=== PATIENT | male | born 1955 | race Caucasian/White ===

== ENCOUNTER 2016-11-12 15:54 | Inpatient (IN) | payer BC, OTHER ==
--- NOTE | 2016-11-12 18:11 | PDOC ---
History of Present Illness - General Chief Complaint: Shortness of Breath Stated Complaint: Shortness of Breath Time Seen by Provider: 11/12/16 18:11 Past History - Past Medical History Allergies/Adverse Reactions: Allergies Allergy/AdvReac Type Severity Reaction Status Date / Time No Known Allergies Allergy Verified 11/12/16 16:12 Home Medications: Ambulatory Orders Metolazone [Zaroxolyn] 2.5 mg PO ASDIR PRN 06/21/15 Metoprolol Succinate [Toprol XL -] 50 mg PO BID 06/21/15 Simvastatin [Zocor -] 20 mg PO HS 06/21/15 Warfarin Sodium [Coumadin] 5 mg PO HS 06/21/15 Amiodarone HCl [Cordarone -] 200 mg PO DAILY 10/29/15 Furosemide [Lasix -] 80 mg PO BID 11/28/15 Potassium Chloride [K-Dur -] 20 meq PO DAILY 11/28/15 Potassium Chloride [K-Dur -] 40 meq PO ONCE #2 tablet.er 11/28/15 Spironolactone 50 mg PO DAILY #30 tablet 11/28/15 Zolpidem Tartrate [Ambien] 10 mg PO HS 11/28/15 Cardiac Disorders: Yes (ENDOCARDITIS;A FIB, A FLUTTER) CHF: Yes HTN: Yes Hypercholesterolemia: Yes - Surgical History Cardiac Surgery: Yes (VALVE REPLACEMENT, ABLATIONS) - Psycho/Social/Smoking Cessation Hx Anxiety: No Suicidal Ideation: No Smoking History: Former smoker Have you smoked in the past 12 months: No If you are a former smoker, when did you quit?: 5 YRS Information on smoking cessation initiated: No Hx Alcohol Use: No Drug/Substance Use Hx: No Substance Use Type: None *Physical Exam - Vital Signs Last Vital Signs Temp Pulse Resp BP Pulse Ox 97.7 F 76 17 91/51 95 11/12/16 16:12 11/12/16 16:12 11/12/16 16:12 11/12/16 16:12 11/12/16 16:12
--- NOTE | 2016-11-12 19:26 | PDOC ---
History of Present Illness <Sary Phelps - Last Filed: 11/12/16 22:13> <Jenny Cat - Last Filed: 11/12/16 22:22> - History of Present Illness Initial Comments: 11/12/16 20:06 Patient is a 61-year-old male with past medical history of A. fib status post 2 ablations on amiodarone, mechanical valve replacement (aortic, mitral) endocarditis, CHF, COPD, who presents to emergency department today complaining of shortness of breath for one week. Patient states that he was recently bit by a tick and was started on doxycycline this week. He feels like he is more short of breath than usual on exertion. He can usually walk up 2 flights of steps without getting short of breath. He can currently only walk up one flight of stairs and needs to stop to catch his breath. Denies orthopnea, chest pain, chest tightness, palpitations, cough, edema, fevers, chills, nausea, vomiting and diarrhea. <Estefany Clark - Last Filed: 11/13/16 05:32> - General Chief Complaint: Shortness of Breath Stated Complaint: Shortness of Breath Time Seen by Provider: 11/12/16 18:11 Past History <Sary Phelps - Last Filed: 11/12/16 22:13> <Jenny Cat - Last Filed: 11/12/16 22:22> - Past Medical History Cardiac Disorders: Yes (ENDOCARDITIS;A FIB, A FLUTTER) CHF: Yes HTN: Yes Hypercholesterolemia: Yes - Surgical History Cardiac Surgery: Yes (VALVE REPLACEMENT, ABLATIONS) - Psycho/Social/Smoking Cessation Hx Anxiety: No Suicidal Ideation: No Smoking History: Former smoker Have you smoked in the past 12 months: No If you are a former smoker, when did you quit?: 5 YRS Information on smoking cessation initiated: No Hx Alcohol Use: No Drug/Substance Use Hx: No Substance Use Type: None <Estefany Clark - Last Filed: 11/13/16 05:32> - Past Medical History Allergies/Adverse Reactions: Allergies Allergy/AdvReac Type Severity Reaction Status Date / Time No Known Allergies Allergy Verified 11/12/16 16:12 Home Medications: Ambulatory Orders Metolazone [Zaroxolyn] 2.5 mg PO ASDIR PRN 06/21/15 Metoprolol Succinate [Toprol XL -] 50 mg PO BID 06/21/15 Simvastatin [Zocor -] 20 mg PO HS 06/21/15 Warfarin Sodium [Coumadin] 5 mg PO HS 06/21/15 Amiodarone HCl [Cordarone -] 200 mg PO DAILY 10/29/15 Furosemide [Lasix -] 80 mg PO BID 11/28/15 Potassium Chloride [K-Dur -] 20 meq PO DAILY 11/28/15 Spironolactone 50 mg PO DAILY #30 tablet 11/28/15 Zolpidem Tartrate [Ambien] 10 mg PO HS 11/28/15 Review of Systems - Review of Systems Comments:: 11/12/16 20:12 CONSTITUTIONAL: Absent: fever, chills, diaphoresis, generalized weakness, malaise, loss of appetite HEENT: Absent: rhinorrhea, nasal congestion, throat pain, throat swelling, difficulty swallowing, mouth swelling, ear pain, eye pain, visual Changes CARDIOVASCULAR: Absent: chest pain, loss of consciousness, palpitations, irregular heart rate, peripheral edema RESPIRATORY: Present: SOB, SOB on exertion. Absent: cough, orthopnea, wheezing, stridor, hemoptysis GASTROINTESTINAL: Absent: abdominal pain, abdominal distension, nausea, vomiting, diarrhea, constipation, melena, hematochezia GENITOURINARY: Absent: dysuria, frequency, urgency, hesitancy, hematuria, flank pain, genital pain MUSCULOSKELETAL: Absent: myalgia, arthralgia, joint swelling SKIN: Absent: rash, itching, pallor HEMATOLOGIC/IMMUNOLOGIC: Absent: easy bleeding, easy bruising, lymphadenopathy, frequent infections ENDOCRINE: Absent: unexplained weight gain, unexplained weight loss, heat intolerance, cold intolerance NEUROLOGIC: Absent: headache, focal weakness or paresthesias, dizziness, unsteady gait, seizure, mental status changes, bladder or bowel incontinence PSYCHIATRIC: Absent: anxiety, depression, suicidal or homicidal ideation, hallucinations. <Estefany Clark - Last Filed: 11/13/16 05:32> *Physical Exam - Vital Signs Last Vital Signs Temp Pulse Resp BP Pulse Ox 97.7 F 70 23 96/62 96 11/12/16 16:12 11/12/16 19:50 11/12/16 19:50 11/12/16 19:50 11/12/16 19:58 <Sary Phelps - Last Filed: 11/12/16 22:13> - Vital Signs Last Vital Signs Temp Pulse Resp BP Pulse Ox 97.7 F 70 23 96/62 96 11/12/16 16:12 11/12/16 19:50 11/12/16 19:50 11/12/16 19:50 11/12/16 19:58 <Jenny Cat - Last Filed: 11/12/16 22:22> - Vital Signs Last Vital Signs Temp Pulse Resp BP Pulse Ox 97.7 F 70 16 94/63 98 11/12/16 16:12 11/12/16 19:00 11/12/16 19:00 11/12/16 19:00 11/12/16 19:00 - Physical Exam Comments: 11/12/16 20:07 GENERAL: Well developed, well nourished. AAO 3. NAD. Sitting in wheelchair breathing easily. Not on oxygen. HEENT: Normocephalic, atraumatic. PERRLA, EOMI. No conjunctival pallor. Sclera are non- icteric. Moist mucous membranes. Oropharynx is clear. NECK: Supple. Full ROM. No JVD. Carotid pulses 2+ and symmetric, without bruits. No thyromegaly. No lymphadenopathy. CARDIOVASCULAR: Regular rate and rhythm. No murmurs, rubs, or gallops. Distal pulses are 2+ and symmetric. PULMONARY: No evidence of respiratory distress. Bibasilar crackles. No wheezing or rhonchi. ABDOMINAL: Soft. Non-tender. Non-distended. No rebound or guarding. No organomegaly. Normoactive bowel sounds. MUSCULOSKELETAL Normal range of motion at all joints. No bony deformities or tenderness. No CVA tenderness. EXTREMITIES: No cyanosis. No clubbing. No edema. No calf tenderness. SKIN: Warm and dry. Normal capillary refill. No rashes. No jaundice. NEUROLOGICAL: Alert, awake, appropriate. Cranial nerves 2-12 intact. No deficits to light touch and temperature in face, upper extremities and lower extremities. No motor deficits in the in face, upper extremities and lower extremities. Normoreflexic in the upper and lower extremities. Normal speech. Toes are down- going bilaterally. Gait is normal without ataxia. PSYCHIATRIC: Cooperative. Good eye contact. Appropriate mood and affect. <Sciliano,Estefany - Last Filed: 11/13/16 05:32> ED Treatment Course - LABORATORY CBC & Chemistry Diagram: 11/12/16 19:48 11/12/16 19:48 - ADDITIONAL ORDERS Additional order review: Laboratory Results 11/12/16 11/12/16 11/12/16 20:29 19:48 19:48 INR 7.08 H* D Sodium 133 L Potassium 3.7 D Chloride 96 L Carbon Dioxide 26 D Anion Gap 11 BUN 60 H D Creatinine 1.9 H D Creat Clearance w eGFR 36.10 Random Glucose 95 D Calcium 9.6 Phosphorus 3.3 D Magnesium 2.1 Total Bilirubin 1.8 H AST 26 D ALT 19 D Alkaline Phosphatase 224 H Creatine Kinase Troponin I Total Protein 7.7 Albumin 3.2 L Urine Color Yellow Urine Appearance Clear Urine pH 5.0 Urine Protein Negative Urine Glucose (UA) Negative Urine Ketones Negative Urine Blood Negative Urine Nitrite Negative Urine Bilirubin Negative Urine Urobilinogen 2.0 Ur Leukocyte Esterase Negative 11/12/16 19:36 INR Sodium Potassium Chloride Carbon Dioxide Anion Gap BUN Creatinine Creat Clearance w eGFR Random Glucose Calcium Phosphorus Magnesium Total Bilirubin AST ALT Alkaline Phosphatase Creatine Kinase 31 L Troponin I < 0.02 D Total Protein Albumin Urine Color Urine Appearance Urine pH Urine Protein Urine Glucose (UA) Urine Ketones Urine Blood Urine Nitrite Urine Bilirubin Urine Urobilinogen Ur Leukocyte Esterase 11/12/16 19:48 RBC 3.52 L MCV 84.4 MCHC 33.1 RDW 17.0 H D MPV 8.9 Neutrophils % 81.1 Lymphocytes % 12.6 D Monocytes % 4.8 Eosinophils % 1.1 Basophils % 0.4 <Sary Phelps - Last Filed: 11/12/16 22:13> - LABORATORY CBC & Chemistry Diagram: 11/12/16 19:48 11/12/16 19:48 - ADDITIONAL ORDERS Additional order review: Laboratory Results 11/12/16 11/12/16 11/12/16 20:29 19:48 19:48 INR 7.08 H* D Sodium 133 L Potassium 3.7 D Chloride 96 L Carbon Dioxide 26 D Anion Gap 11 BUN 60 H D Creatinine 1.9 H D Creat Clearance w eGFR 36.10 Random Glucose 95 D Calcium 9.6 Phosphorus 3.3 D Magnesium 2.1 Total Bilirubin 1.8 H AST 26 D ALT 19 D Alkaline Phosphatase 224 H Creatine Kinase Troponin I Total Protein 7.7 Albumin 3.2 L Urine Color Yellow Urine Appearance Clear Urine pH 5.0 Urine Protein Negative Urine Glucose (UA) Negative Urine Ketones Negative Urine Blood Negative Urine Nitrite Negative Urine Bilirubin Negative Urine Urobilinogen 2.0 Ur Leukocyte Esterase Negative 11/12/16 19:36 INR Sodium Potassium Chloride Carbon Dioxide Anion Gap BUN Creatinine Creat Clearance w eGFR Random Glucose Calcium Phosphorus Magnesium Total Bilirubin AST ALT Alkaline Phosphatase Creatine Kinase 31 L Troponin I < 0.02 D Total Protein Albumin Urine Color Urine Appearance Urine pH Urine Protein Urine Glucose (UA) Urine Ketones Urine Blood Urine Nitrite Urine Bilirubin Urine Urobilinogen Ur Leukocyte Esterase 11/12/16 19:48 RBC 3.52 L MCV 84.4 MCHC 33.1 RDW 17.0 H D MPV 8.9 Neutrophils % 81.1 Lymphocytes % 12.6 D Monocytes % 4.8 Eosinophils % 1.1 Basophils % 0.4 <Jenny aCt - Last Filed: 11/12/16 22:22> - LABORATORY CBC & Chemistry Diagram: 11/12/16 19:48 11/12/16 19:48 <Estefany Clark - Last Filed: 11/13/16 05:32> Medical Decision Making - Medical Decision Making 11/12/16 22:22 Dr. Duarte was paged and notified via phone service. <Jenny Cat - Last Filed: 11/12/16 22:22> - Medical Decision Making 11/12/16 20:36 Patient is a 61-year-old male with past medical history of A. fib status post 2 ablations on amiodarone, mechanical valve replacement (aortic, mitral) endocarditis, CHF, COPD, who presents to emergency department today complaining of shortness of breath for one week. Given patient's complicated past medical history we'll order for a of lab workup EKG chest x-ray. Possibilities of diagnosis include but are not limited to CHF exacerbation, pneumonia, Lyme disease, COPD exacerbation. 1. CBC, CMP, Cardiac Profile, PT/INR 2. Chest X-ray, EKG 3. Re-evaluate 11/12/16 21:22 EKG: Sinus rhythm 1st degree block. Rate of [address]-T wave changes. EKG is unchanged from old 09/29/15. CXR: Mild pulmonary vascular congestion, but improved since x-ray on 09/29/15. No acute cardiopulmonary disease. Lab work is notable for an INR of 7, WBC of 12 and STEVE, BUN/CR, 66/1.9. This is most probably d/t his lasix usage compounded by the interaction of doxycycline and Warfarin. Will admit at this time for supratheraputic INR and renal insufficiency. 1st call to Dr. Duarte 11/12/16 21:[address] Duarte and he accepts the pt. Pt to be admitted to telemetry. <Estefany Clark - Last Filed: 11/13/16 05:32> *DC/Admit/Observation/Transfer <Sary Phelps - Last Filed: 11/12/16 22:13> <Jenny Cat - Last Filed: 11/12/16 22:22> - Discharge Dispostion Admit: Yes <Estefany Clark - Last Filed: 11/13/16 05:32> Diagnosis at time of Disposition: Supratherapeutic INR, Renal insufficiency Anemia Qualifiers: Anemia type: unspecified type Qualified Code(s): D64.9 - Anemia, unspecified - Discharge Dispostion Condition at time of disposition: Guarded - Referrals
[2016-11-12 20:05] LABS: BASOPHIL 0.4 % (0-2.0); EOSINOPHIL 1.1 % (0-4.5); MCHC 33.1 g/dl (32.0-35.9); MEAN CELL VOLUME 84.4 fl (80-96); MEAN PLT VOLUME 8.9 fl (7.5-11.1); NEUTROPHILS 81.1 % (42.8-82.8); PLATELET COUNT 123 K/MM3 (134-434); WHITE BLOOD COUNT 12.7 K/mm3 (4.0-10.0)
[2016-11-12 20:25] LABS: INR 7.08 (0.82-1.09)
[2016-11-12 20:38] LABS: URINE APPEARANCE CLEAR; URINE BILIRUBIN NEGATIVE (NEGATIVE); URINE BLOOD NEGATIVE (NEGATIVE); URINE COLOR YELLOW; URINE GLUCOSE (UA) NEGATIVE (NEGATIVE); URINE KETONE NEGATIVE (NEGATIVE); URINE LEUK ESTERASE NEGATIVE (NEGATIVE); URINE NITRITE NEGATIVE (NEGATIVE); URINE PROTEIN NEGATIVE (NEGATIVE)
[2016-11-12 20:55] LABS: ALBUMIN 3.2 g/dl (3.4-5.0); ALK PHOS 224 U/L (45-117); ANION GAP 11 (8-16); BILIRUBIN,TOTAL 1.8 mg/dL (0.2-1.0); CALCIUM 9.6 mg/dL (8.5-10.1); CO2 26 mmol/L (21-32); CREATININE 1.9 mg/dL (0.7-1.3); GLUCOSE,RANDOM 95 mg/dL (74-106); MAGNESIUM 2.1 mg/dL (1.8-2.4); PHOSPHOROUS 3.3 mg/dL (2.5-4.9); SGOT/AST 26 U/L (15-37); SGPT/ALT 19 U/L (12-78); TOT PROT 7.7 g/dl (6.4-8.2)
[2016-11-12 20:56] LABS: TROPONIN I < 0.02 ng/ml (0.00-0.05)
[2016-11-12] MEDS ORDERED: SODIUM CHLORIDE 500 ML IV STA (21:11)
[2016-11-13 03:11] VITALS: BMI 25.1
[2016-11-13 08:28] LABS: BASOPHIL 0.4 % (0-2.0); EOSINOPHIL 1.1 % (0-4.5); MCH 28.6 pg (25.7-33.7); MCHC 33.9 g/dl (32.0-35.9); MEAN CELL VOLUME 84.1 fl (80-96); MEAN PLT VOLUME 7.5 fl (7.5-11.1); NEUTROPHILS 82.8 % (42.8-82.8); PLATELET COUNT 188 K/MM3 (134-434); RDW 16.5 % (11.9-15.9); WHITE BLOOD COUNT 12.8 K/mm3 (4.0-10.0)
[2016-11-13 08:49] LABS: PROTHROMBIN TIME (PATIENT) 87.7 SEC (9.98-11.88)
[2016-11-13 08:55] LABS: ANION GAP 11 (8-16); CALCIUM 9.5 mg/dL (8.5-10.1); CHOLESTEROL 164 mg/dL (50-200); CO2 26 mmol/L (21-32); CREATININE 1.8 mg/dL (0.7-1.3); GLUCOSE,RANDOM 100 mg/dL (74-106); LDL CHOLESTEROL (ONLY SJRH) 112 mg/dL (5-100); MAGNESIUM 2.1 mg/dL (1.8-2.4)
[2016-11-13] MEDS ORDERED: PHYTONADIONE 10 MG/1 ML AMP IVPB ONE (09:14)
[2016-11-13 09:15] LABS: INR 7.65 (0.82-1.09)
--- NOTE | 2016-11-13 09:16 | HP ---
Admitting History and Physical - Admission History of Present Illness: 61-year-old male with past medical history of A. fib status post 2 ablations on amiodarone, mechanical valve replacement (aortic, mitral) endocarditis, CHF, COPD, who presents to emergency department today complaining of shortness of breath for one week. Patient states that he was recently bit by a tick and was started on doxycycline this week. He feels like he is more short of breath than usual on exertion. He can usually walk up 2 flights of steps without getting short of breath. He can currently only walk up one flight of stairs and needs to stop to catch his breath. Denies orthopnea, chest pain, chest tightness, palpitations, cough, edema, fevers, chills, nausea, vomiting and diarrhea. - Past Medical History Cardiovascular: Yes: AFIB, CHF, HTN, Hyperlipdemia, Other (AVR/MVR) Pulmonary: Yes: COPD Renal/: Yes: Renal Inusuff Heme/Onc: Yes: Anemia Infectious Disease: Yes: Other (H/O ENDOCARDITIS) - Past Surgical History Past Surgical History: Yes: Valve Replacement - Smoking History Smoking history: Former smoker Have you smoked in the past 12 months: No If you are a former smoker, when did you quit?: 5 YRS - Alcohol/Substance Use Hx Alcohol Use: No Home Medications - Allergies Allergies/Adverse Reactions: Allergies Allergy/AdvReac Type Severity Reaction Status Date / Time No Known Allergies Allergy Verified 11/12/16 16:12 - Home Medications Home Medications: Ambulatory Orders Metolazone [Zaroxolyn] 2.5 mg PO ASDIR PRN 06/21/15 Metoprolol Succinate [Toprol XL -] 50 mg PO BID 06/21/15 Simvastatin [Zocor -] 20 mg PO HS 06/21/15 Warfarin Sodium [Coumadin] 5 mg PO HS 06/21/15 Amiodarone HCl [Cordarone -] 200 mg PO DAILY 10/29/15 Furosemide [Lasix -] 80 mg PO BID 11/28/15 Potassium Chloride [K-Dur -] 20 meq PO DAILY 11/28/15 Spironolactone 50 mg PO DAILY #30 tablet 11/28/15 Zolpidem Tartrate [Ambien] 10 mg PO HS 11/28/15 Family Disease History - Family Disease History Family Disease History: Diabetes: Father (Throat cancer), Other: Father, Mother (Breast and lung cancer) Review of Systems - Review of Systems Cardiovascular: denies: Chest Pain Respiratory: reports: Orthopnea, SOB, SOB on Exertion Gastrointestinal: denies: Abdominal Pain Genitourinary: reports: No Symptoms Integumentary: reports: Erythema (RT LEG) Neurological: reports: No Symptoms Physical Examination Vital Signs: Vital Signs Temperature 97 F L 11/13/16 03:00 Pulse Rate 75 11/13/16 05:57 Respiratory Rate 20 11/13/16 05:57 Blood Pressure 97/65 11/13/16 05:57 O2 Sat by Pulse Oximetry (%) 97 11/13/16 03:00 Cardiovascular: Yes: S1, S2 Respiratory: Yes: Diminished, On Nasal O2, Rhonchi Gastrointestinal: Yes: Normal Bowel Sounds, Soft. No: Tenderness Extremities: Yes: Erythema (RT LEG) Labs: CBC, BMP 11/13/16 08:05 Imaging - Results X-ray: Report Reviewed Problem List - Problems (1) CHF (congestive heart failure) Assessment/Plan: IV LASIX MONITOR LYTES CT OF CHEST ECHO ON ALDACTONE Code(s): I50.9 - HEART FAILURE, UNSPECIFIED Qualifiers: Congestive heart failure type: unspecified congestive heart failure type Congestive heart failure chronicity: unspecified congestive heart failure chronicity Qualified Code(s): I50.9 - Heart failure, unspecified (2) Supratherapeutic INR Assessment/Plan: HOLD COUMADIN MONITOR INR NO S/S OF ACTIVE BLEEDING--HOLD OFF ON VIT K DUE TO VALVE CARDIO Code(s): R79.1 - ABNORMAL COAGULATION PROFILE (3) Atrial fibrillation Assessment/Plan: ON COUMADIN--INR HIGH TELE Code(s): I48.91 - UNSPECIFIED ATRIAL FIBRILLATION Qualifiers: Atrial fibrillation type: persistent Qualified Code(s): I48.1 - Persistent atrial fibrillation (4) Anemia Assessment/Plan: W/U ORDERED--FE/TIBC/FERRITIN/B12/OCCULT BLOOD Code(s): D64.9 - ANEMIA, UNSPECIFIED Qualifiers: Anemia type: unspecified type Qualified Code(s): D64.9 - Anemia, unspecified (5) Renal insufficiency Assessment/Plan: MONITOR ON DIURETICS Code(s): N28.9 - DISORDER OF KIDNEY AND URETER, UNSPECIFIED (6) Hypokalemia Assessment/Plan: REPLACE AND MONITOR Code(s): E87.6 - HYPOKALEMIA (7) Heart valve replaced Assessment/Plan: ECHO Code(s): Z95.2 - PRESENCE OF PROSTHETIC HEART VALVE (8) Cellulitis Assessment/Plan: IV ABX CULTURES ID CONSULT Code(s): L03.90 - CELLULITIS, UNSPECIFIED
[2016-11-13] MEDS ORDERED: CEFTRIAXONE 50 ML IVPB SCH (10:00)
[2016-11-13] MEDS ORDERED: POTASSIUM CHLORIDE TABS 20 MEQ TABLET.ER (FP) PO SCH (10:00)
--- NOTE | 2016-11-13 10:25 | CONSULT ---
Consult Consult Specialty:: Cardiology Referred by:: Medicine Reason for Consultation:: CHF - History of Present Illness Chief Complaint: Dyspnea History of Present Illness: 61 yo male Known to Dr. Meza (last seen in [facility] "months ago") Prior AFib s/p 2 RFA in 2010 and 2013 at [facility] Prior Mechanical AVR and MVR 2/2 endocarditits COPD Now admitted with 1 week of worsening exertional dyspnea unable to ambulate 1 block after starting doxycycline for tick bite. No chest pain or palpitations (+) right LE erythema States medication compliance at home with lasix 80mg daily Last echo was normal LVEF - History Source History Provided By: Patient, Medical Record Limitations to Obtaining History: No Limitations - Past Medical History Cardio/Vascular: Yes: AFIB, CHF, HTN, Hyperlipdemia, Other (AVR/MVR) Pulmonary: Yes: COPD Renal/: Yes: Renal Inusuff Infectious Disease: Yes: Other (H/O ENDOCARDITIS) - Past Surgical History Past Surgical History: Yes: Valve Replacement - Alcohol/Substance Use Hx Alcohol Use: No - Smoking History Smoking history: Former smoker Have you smoked in the past 12 months: No If you are a former smoker, when did you quit?: 5 YRS Home Medications - Allergies Allergies/Adverse Reactions: Allergies Allergy/AdvReac Type Severity Reaction Status Date / Time No Known Allergies Allergy Verified 11/12/16 16:12 - Home Medications Home Medications: Ambulatory Orders Metolazone [Zaroxolyn] 2.5 mg PO ASDIR PRN 06/21/15 Metoprolol Succinate [Toprol XL -] 50 mg PO BID 06/21/15 Simvastatin [Zocor -] 20 mg PO HS 06/21/15 Warfarin Sodium [Coumadin] 5 mg PO HS 06/21/15 Amiodarone HCl [Cordarone -] 200 mg PO DAILY 10/29/15 Furosemide [Lasix -] 80 mg PO BID 11/28/15 Potassium Chloride [K-Dur -] 20 meq PO DAILY 11/28/15 Spironolactone 50 mg PO DAILY #30 tablet 11/28/15 Zolpidem Tartrate [Ambien] 10 mg PO HS 11/28/15 Family Disease History - Family Disease History Family Disease History: Diabetes: Father (Throat cancer), Other: Father, Mother (Breast and lung cancer) Review of Systems - Review of Systems Cardiovascular: reports: Shortness of Breath Respiratory: reports: SOB on Exertion Integumentary: reports: Erythema (right LE rash Recent tick bite), Other Physical Exam Vital Signs: Vital Signs Temperature 97 F L 11/13/16 03:00 Pulse Rate 75 11/13/16 05:57 Respiratory Rate 20 11/13/16 05:57 Blood Pressure 97/65 11/13/16 05:57 O2 Sat by Pulse Oximetry (%) 97 11/13/16 03:00 Constitutional: Yes: Well Nourished, No Distress, Calm Eyes: Yes: Conjunctiva Clear, EOM Intact HENT: Yes: Atraumatic, Normocephalic Neck: Yes: WNL, Supple, Trachea Midline Cardiovascular: Yes: Regular Rate and Rhythm (Mechanical S1 and S2) Respiratory: Yes: Regular, CTA Bilaterally Gastrointestinal: Yes: Normal Bowel Sounds ...Rectal Exam: Yes: Deferred Extremities: Yes: Erythema Edema: Yes Edema: LLE: 1+, RLE: 2+ Integumentary: Yes: Rash (Right LE erythema/cellulits) Neurological: Yes: WNL, Alert, Oriented Psychiatric: Yes: WNL, Alert, Oriented Labs: CBC, BMP 11/13/16 08:05 11/13/16 08:05 Imaging - Results EKG: Image Reviewed (ECG on 11/12/2016 at 19:28 NSR at 70/min with 1st degree avb (264msec) and LBBB.) Assessment/Plan 1) CHF -Elevated BNP 2378 -Agree with lasix 80mg IV BID -Repelate K and monitor BUN/Cr (Baseline Cr around 1.5 on last admission) 2) Afib -Currently in NSR -Monitor 3) Prior AVR/MVR -On AC but supratherapeutic INR (7) likely secondary to Abx -No evidence of bleeding -Hold coumadin and allow INR to drift down, follow INR
[2016-11-13] MEDS: POTASSIUM CHLORIDE TABS 20 MEQ TABLET.ER (FP) PO SCH (10:53)
[2016-11-13] MEDS: AMIODARONE HCL 200 MG TABLET (FP) PO SCH (10:53)
[2016-11-13] MEDS: SPIRONOLACTONE 25 MG TABLET (FP) PO SCH (10:53)
[2016-11-13] MEDS: KCL 10 MEQ IVPB 100 ML IVPB SCH ×2 (11:12→13:16)
--- NOTE | 2016-11-13 12:54 | PN ---
Progress Note (short form) - Note Progress Note: ID Consult dictated Cellulitis R LE S/P MVR/AVR S/P tick exposure Await BC, tick serologies Empric vancomycin/ doxycycline
[2016-11-13] MEDS ORDERED: VANCOMYCIN 1,000 MG in VANCOMYCIN 1 GRAM (PRE-DOCKED) 250 ML IVPB SCH (13:00)
[2016-11-13] MEDS: ACETAMINOPHEN 325 MG TABLET (FP) PO PRN (13:16)
[2016-11-13] MEDS: FUROSEMIDE 40 MG/4 ML INJECTABLE VIAL IVPUSH SCH (15:54)
[2016-11-13] MEDS: VANCOMYCIN 1 GRAM (PRE-DOCKED) 250 ML IVPB SCH (15:55)
[2016-11-13] MEDS: DOXYCYCLINE HYCLATE 100 MG CAPSULE PO SCH (18:27)
[2016-11-14] MEDS: POTASSIUM CHLORIDE TABS 20 MEQ TABLET.ER (FP) PO SCH ×3 (00:07→22:49)
[2016-11-14] MEDS: ZOLPIDEM TARTRATE 5 MG TABLET PO PRN (00:07)
[2016-11-14] MEDS: VANCOMYCIN 1 GRAM (PRE-DOCKED) 250 ML IVPB SCH ×2 (00:14→13:55)
[2016-11-14] MEDS: FUROSEMIDE 40 MG/4 ML INJECTABLE VIAL IVPUSH SCH ×2 (05:45→15:43)
[2016-11-14 07:12] LABS: SERUM IRON 63 ug/dL (38-169); TOTAL IRON BINDING CAPACITY 264 ug/dL (250-450); UIBC 201 ug/dL (111-343)
[2016-11-14 09:37] LABS: BASOPHIL 0.3 % (0-2.0); EOSINOPHIL 1.3 % (0-4.5); MCH 28.4 pg (25.7-33.7); MCHC 33.3 g/dl (32.0-35.9); MEAN CELL VOLUME 85.4 fl (80-96); MEAN PLT VOLUME 8.1 fl (7.5-11.1); NEUTROPHILS 82.2 % (42.8-82.8); PLATELET COUNT 165 K/MM3 (134-434); RDW 16.7 % (11.9-15.9); WHITE BLOOD COUNT 12.4 K/mm3 (4.0-10.0)
[2016-11-14] MEDS: DOXYCYCLINE HYCLATE 100 MG CAPSULE PO SCH ×2 (09:42→17:28)
[2016-11-14] MEDS: AMIODARONE HCL 200 MG TABLET (FP) PO SCH (09:42)
[2016-11-14] MEDS: SPIRONOLACTONE 25 MG TABLET (FP) PO SCH (09:42)
[2016-11-14 09:50] LABS: ALBUMIN 3.4 g/dl (3.4-5.0); ANION GAP 11 (8-16); BILIRUBIN,TOTAL 2.3 mg/dL (0.2-1.0); CALCIUM 10.2 mg/dL (8.5-10.1); CO2 27 mmol/L (21-32); CREATININE 1.7 mg/dL (0.7-1.3); GLUCOSE,RANDOM 115 mg/dL (74-106); SGOT/AST 24 U/L (15-37); SGPT/ALT 16 U/L (12-78); TOT PROT 7.9 g/dl (6.4-8.2)
[2016-11-14 09:51] LABS: ALK PHOS 231 U/L (45-117)
[2016-11-14 09:54] LABS: INR 1.36 (0.82-1.09); PROTHROMBIN TIME (PATIENT) 15.1 SEC (9.98-11.88)
--- NOTE | 2016-11-14 09:55 | PN ---
Progress Note, Physician History of Present Illness: no cp or sob feels better slept flat - Current Medication List Current Medications: Active Medications Acetaminophen (Tylenol -) 650 mg PO Q4H PRN PRN Reason: FEVER OR PAIN Last Admin: 11/13/16 13:16 Dose: 650 mg Amiodarone HCl (Cordarone -) 200 mg PO DAILY [facility] Last Admin: 11/14/16 09:42 Dose: 200 mg Doxycycline Hyclate (Vibramycin -) 100 mg PO BID@1000,1800 [facility] Last Admin: 11/14/16 09:42 Dose: 100 mg Furosemide (Lasix Injection -) 40 mg IVPUSH BID@0600,1400 [facility] Last Admin: 11/14/16 05:45 Dose: 40 mg Vancomycin HCl (Vancomycin (Pre-Docked)) 250 mls @ 200 mls/hr IVPB BID@0100, 1300 [facility] Last Admin: 11/14/16 00:14 Dose: 200 mls/hr Potassium Chloride (K-Dur -) 20 meq PO BID [facility] Last Admin: 11/14/16 09:43 Dose: 20 meq Spironolactone (Aldactone -) 50 mg PO DAILY [facility] Last Admin: 11/14/16 09:42 Dose: 50 mg Zolpidem Tartrate (Ambien -) 10 mg PO HS PRN Last Admin: 11/14/16 00:07 Dose: 10 mg - Objective Vital Signs: Vital Signs Temperature 97.4 F L 11/14/16 07:45 Pulse Rate 81 11/14/16 07:45 Respiratory Rate 18 11/14/16 07:45 Blood Pressure 100/64 11/14/16 07:45 O2 Sat by Pulse Oximetry (%) 97 11/13/16 21:00 Neck: Yes: Supple Cardiovascular: Yes: S1, S2 Respiratory: Yes: Rales (at the bases), Rhonchi Gastrointestinal: Yes: Normal Bowel Sounds, Soft. No: Tenderness Edema: No Integumentary: Yes: Erythema Labs: CBC, BMP 11/14/16 07:00 11/14/16 07:00 INR, PTT INR 7.65 (0.82-1.09) H* 11/13/16 08:05 Problem List - Problems (1) CHF (congestive heart failure) Assessment/Plan: IV LASIX MONITOR LYTES CT OF CHEST ECHO ON ALDACTONE Code(s): I50.9 - HEART FAILURE, UNSPECIFIED Qualifiers: Congestive heart failure type: unspecified congestive heart failure type Congestive heart failure chronicity: unspecified congestive heart failure chronicity Qualified Code(s): I50.9 - Heart failure, unspecified (2) Supratherapeutic INR Assessment/Plan: HOLD COUMADIN MONITOR INR NO S/S OF ACTIVE BLEEDING--HOLD OFF ON VIT K DUE TO VALVE CARDIO Code(s): R79.1 - ABNORMAL COAGULATION PROFILE (3) Atrial fibrillation Assessment/Plan: ON COUMADIN--INR HIGH TELE Code(s): I48.91 - UNSPECIFIED ATRIAL FIBRILLATION Qualifiers: Atrial fibrillation type: persistent Qualified Code(s): I48.1 - Persistent atrial fibrillation (4) Anemia Assessment/Plan: W/U ORDERED--FE/TIBC/FERRITIN/B12/OCCULT BLOOD Code(s): D64.9 - ANEMIA, UNSPECIFIED Qualifiers: Anemia type: unspecified type Qualified Code(s): D64.9 - Anemia, unspecified (5) Renal insufficiency Assessment/Plan: MONITOR ON DIURETICS Code(s): N28.9 - DISORDER OF KIDNEY AND URETER, UNSPECIFIED (6) Hypokalemia Assessment/Plan: REPLACE AND MONITOR Laboratory Tests 11/13/16 11/14/16 08:05 07:00 Potassium 3.2 L 4.0 D Code(s): E87.6 - HYPOKALEMIA (7) Heart valve replaced Assessment/Plan: ECHO Code(s): Z95.2 - PRESENCE OF PROSTHETIC HEART VALVE (8) Cellulitis Assessment/Plan: IV ABX CULTURES ID CONSULT Code(s): L03.90 - CELLULITIS, UNSPECIFIED (9) Pneumonia Assessment/Plan: CT SCAN NOTED--GROUND GLASS APPEARANCE IV BX ID AND PULM CONSULT Code(s): J18.9 - PNEUMONIA, UNSPECIFIED ORGANISM (10) Bacteremia Assessment/Plan: R/O VALVE INVOLVEMENT---ECHO CARDIO IV ABX PER ID Code(s): R78.81 - BACTEREMIA
--- NOTE | 2016-11-14 10:59 | PN ---
Progress Note, Physician History of Present Illness: Awake, alert No fever/ chills No focal complaint Denies R leg pain No c/o chest pain/ dyspnea/ cough Lab reports 2 of 4 bottles + GPCC - Current Medication List Current Medications: Active Medications Acetaminophen (Tylenol -) 650 mg PO Q4H PRN PRN Reason: FEVER OR PAIN Last Admin: 11/13/16 13:16 Dose: 650 mg Amiodarone HCl (Cordarone -) 200 mg PO DAILY [facility] Last Admin: 11/14/16 09:42 Dose: 200 mg Doxycycline Hyclate (Vibramycin -) 100 mg PO BID@1000,1800 [facility] Last Admin: 11/14/16 09:42 Dose: 100 mg Furosemide (Lasix Injection -) 40 mg IVPUSH BID@0600,1400 [facility] Last Admin: 11/14/16 05:45 Dose: 40 mg Vancomycin HCl (Vancomycin (Pre-Docked)) 250 mls @ 200 mls/hr IVPB BID@0100, 1300 [facility] Last Admin: 11/14/16 00:14 Dose: 200 mls/hr Potassium Chloride (K-Dur -) 20 meq PO BID [facility] Last Admin: 11/14/16 09:43 Dose: 20 meq Spironolactone (Aldactone -) 50 mg PO DAILY [facility] Last Admin: 11/14/16 09:42 Dose: 50 mg Zolpidem Tartrate (Ambien -) 10 mg PO HS PRN Last Admin: 11/14/16 00:07 Dose: 10 mg - Objective Vital Signs: Vital Signs Temperature 97.4 F L 11/14/16 07:45 Pulse Rate 81 11/14/16 07:45 Respiratory Rate 18 11/14/16 07:45 Blood Pressure 100/64 11/14/16 07:45 O2 Sat by Pulse Oximetry (%) 100 11/14/16 09:00 Constitutional: Yes: No Distress Eyes: Yes: Conjunctiva Clear Cardiovascular: Yes: Regular Rate and Rhythm, Murmur, S1, S2 Respiratory: Yes: Other (few crepitations, bases) Gastrointestinal: Yes: Normal Bowel Sounds, Soft. 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
[2016-11-14 11:39] LABS: INR 1.39 (0.82-1.09); PROTHROMBIN TIME (PATIENT) 15.4 SEC (9.98-11.88)
[2016-11-14] MEDS: CEFTRIAXONE 50 ML IVPB SCH (11:42)
--- NOTE | 2016-11-14 11:50 | PN ---
Progress Note, Physician History of Present Illness: Urinating Feeling improved from respiratory perspective No bleeding - Current Medication List Current Medications: Active Medications Acetaminophen (Tylenol -) 650 mg PO Q4H PRN PRN Reason: FEVER OR PAIN Last Admin: 11/13/16 13:16 Dose: 650 mg Amiodarone HCl (Cordarone -) 200 mg PO DAILY [facility] Last Admin: 11/14/16 09:42 Dose: 200 mg Doxycycline Hyclate (Vibramycin -) 100 mg PO BID@1000,1800 [facility] Last Admin: 11/14/16 09:42 Dose: 100 mg Furosemide (Lasix Injection -) 40 mg IVPUSH BID@0600,1400 [facility] Last Admin: 11/14/16 05:45 Dose: 40 mg Vancomycin HCl (Vancomycin (Pre-Docked)) 250 mls @ 200 mls/hr IVPB BID@0100, 1300 [facility] Last Admin: 11/14/16 00:14 Dose: 200 mls/hr Ceftriaxone Sodium (Rocephin 1gm Ivpb (Pre-Docked)) 50 mls @ 100 mls/hr IVPB DAILY [facility] Last Admin: 11/14/16 11:42 Dose: 100 mls/hr Gentamicin Sulfate 60 mg/ (Sodium Chloride) 101.5 mls @ 101.5 mls/hr IVPB Q12H [facility] Potassium Chloride (K-Dur -) 20 meq PO BID [facility] Last Admin: 11/14/16 09:43 Dose: 20 meq Spironolactone (Aldactone -) 50 mg PO DAILY [facility] Last Admin: 11/14/16 09:42 Dose: 50 mg Zolpidem Tartrate (Ambien -) 10 mg PO HS PRN Last Admin: 11/14/16 00:07 Dose: 10 mg - Objective Vital Signs: Vital Signs Temperature 97.4 F L 11/14/16 07:45 Pulse Rate 81 11/14/16 07:45 Respiratory Rate 18 11/14/16 07:45 Blood Pressure 100/64 11/14/16 07:45 O2 Sat by Pulse Oximetry (%) 100 11/14/16 09:00 Constitutional: Yes: Well Nourished, No Distress Eyes: Yes: WNL, Conjunctiva Clear HENT: Yes: Atraumatic, Normocephalic Neck: Yes: WNL, Supple Cardiovascular: Yes: WNL, Other (Mechanical S1.) Respiratory: Yes: Regular, CTA Bilaterally Gastrointestinal: Yes: WNL, Normal Bowel Sounds Musculoskeletal: Yes: WNL Extremities: Yes: Erythema Edema: LLE: 1+, RLE: 1+ Labs: CBC, BMP 11/14/16 07:00 11/14/16 07:00 INR, PTT INR 1.39 (0.82-1.09) H 11/14/16 11:18 Assessment/Plan 1) CHF -Elevated BNP 2378 Last echo was [facility] in 10/2015 showing mechancial MVR and bioprosthetic AVR, mildly reduced LVEF with global hypocontractility. -continue now with lasix 40mg IV BID -Replete K and monitor BUN/Cr (Baseline Cr around 1.5 on last admission) -Continue Aldactone for now but may need to hold with Cr continues to rise. 2) Afib -Currently in NSR on Amiodarone -Monitor 3) Prior bio AVR, mechanical MVR -Now INR 1.39 (?) with no Vit K administered. Odd to have the INR go from 7 to 1.39 without Vit K. ?lab error. Nonetheless, given his mechcnial MVR, needs IV Heparin and re-initiation of warfarin.
[2016-11-14] MEDS ORDERED: HEPARIN NA (PORCINE) 5,000 UNITS/ML 1ML VIAL IVPUSH PRN (11:57)
[2016-11-14] MEDS: GENTAMICIN INJECTION 60 MG in SODIUM CHLORIDE 100 ML IVPB SCH ×2 (12:28→23:23)
--- NOTE | 2016-11-14 12:53 | CON.PULM ---
Consult Consult Specialty:: PULM/CCM Referred by:: JESSICA Reason for Consultation:: SOB - History of Present Illness Chief Complaint: SOB / foot swelling redness History of Present Illness: 61 M, A. fib, S/P ablation x2, mechanical valve replacement (aortic, mitral), (? ) history of endocarditis, CHF, COPD due to smoking. His is at the bedside. Minimal snoring and no significant history consistent with [facility]. Admitted via the ER due to progressive SOB and cough x 1 week. Patient also reports that he was recently bitten by a tick and was started on doxycycline. No travel history or sick contacts. No hemoptysis or night sweats. - History Source History Provided By: Patient Limitations to Obtaining History: No Limitations - Past Medical History Cardio/Vascular: Yes: AFIB, CHF, HTN, Hyperlipdemia, Other (AVR/MVR) Pulmonary: Yes: COPD Renal/: Yes: Renal Inusuff Infectious Disease: Yes: Other (H/O ENDOCARDITIS) - Past Surgical History Past Surgical History: Yes: Valve Replacement - Alcohol/Substance Use Hx Alcohol Use: No - Smoking History Smoking history: Former smoker Have you smoked in the past 12 months: No If you are a former smoker, when did you quit?: 5 YRS Home Medications - Allergies Allergies/Adverse Reactions: Allergies Allergy/AdvReac Type Severity Reaction Status Date / Time No Known Allergies Allergy Verified 11/12/16 16:12 - Home Medications Home Medications: Ambulatory Orders Metolazone [Zaroxolyn] 2.5 mg PO ASDIR PRN 06/21/15 Metoprolol Succinate [Toprol XL -] 50 mg PO BID 06/21/15 Simvastatin [Zocor -] 20 mg PO HS 06/21/15 Warfarin Sodium [Coumadin] 5 mg PO HS 06/21/15 Amiodarone HCl [Cordarone -] 200 mg PO DAILY 10/29/15 Furosemide [Lasix -] 80 mg PO BID 11/28/15 Potassium Chloride [K-Dur -] 20 meq PO DAILY 11/28/15 Spironolactone 50 mg PO DAILY #30 tablet 11/28/15 Zolpidem Tartrate [Ambien] 10 mg PO HS 11/28/15 Family Disease History - Family Disease History Family Disease History: Diabetes: Father (Throat cancer), Other: Father, Mother (Breast and lung cancer) Review of Systems - Review of Systems Constitutional: reports: Malaise. denies: Chills, Fever, Loss of Appetite, Night Sweats, Unintentional Wgt. Loss Eyes: reports: No Symptoms HENT: reports: No Symptoms Neck: reports: No Symptoms Cardiovascular: reports: Edema, Shortness of Breath. denies: Chest Pain, Palpitations Respiratory: reports: Cough, SOB, SOB on Exertion. denies: Hemoptysis, Snoring , Wheezing Gastrointestinal: reports: No Symptoms Genitourinary: reports: No Symptoms Breasts: reports: No Symptoms Reported Musculoskeletal: reports: Joint Swelling Integumentary: reports: Blister, Change in Color, Pruritis, Rash Neurological: reports: No Symptoms Endocrine: reports: No Symptoms Hematology/Lymphatic: reports: No Symptoms Psychiatric: reports: No Symptoms Physical Exam Vital Sings: Vital Signs Temperature 97.4 F L 11/14/16 07:45 Pulse Rate 81 11/14/16 07:45 Respiratory Rate 18 11/14/16 07:45 Blood Pressure 100/64 11/14/16 07:45 O2 Sat by Pulse Oximetry (%) 100 11/14/16 09:00 Constitutional: Yes: No Distress, Calm Eyes: Yes: Conjunctiva Clear, EOM Intact HENT: Yes: Atraumatic, Normocephalic Neck: Yes: Supple, Trachea Midline Cardiovascular: Yes: Pulse Irregular Respiratory: Yes: Cough, Diminished, On Nasal O2, Rhonchi. No: Accessory Muscle Use, Rales, Stridor, Tachypnea, Wheezes ...Inspection: Yes: WNL ...Clubbing: No Gastrointestinal: Yes: Normal Bowel Sounds, Soft Renal/: Yes: WNL Musculoskeletal: Yes: WNL Extremities: Yes: Other (rash / redness ) Edema: Yes Peripheral Pulses WNL: No Integumentary: Yes: Erythema, Rash Neurological: Yes: WNL, Alert, Oriented ...Motor Strength: WNL Psychiatric: Yes: WNL, Alert, Oriented Labs: CBC, BMP 11/14/16 07:00 11/14/16 07:00 Imaging - Results Chest X-ray: Report Reviewed, Image Reviewed Cat Scan: Report Reviewed, Image Reviewed Problem List - Problems (1) Anemia Code(s): D64.9 - ANEMIA, UNSPECIFIED Qualifiers: Anemia type: unspecified type Qualified Code(s): D64.9 - Anemia, unspecified (2) Cellulitis Code(s): L03.90 - CELLULITIS, UNSPECIFIED (3) Heart valve replaced Code(s): Z95.2 - PRESENCE OF PROSTHETIC HEART VALVE (4) Pneumonia Code(s): J18.9 - PNEUMONIA, UNSPECIFIED ORGANISM (5) Supratherapeutic INR Code(s): R79.1 - ABNORMAL COAGULATION PROFILE (6) Atrial fibrillation Code(s): I48.91 - UNSPECIFIED ATRIAL FIBRILLATION Qualifiers: Atrial fibrillation type: persistent Qualified Code(s): I48.1 - Persistent atrial fibrillation (7) CHF (congestive heart failure) Code(s): I50.9 - HEART FAILURE, UNSPECIFIED Qualifiers: Congestive heart failure type: unspecified congestive heart failure type Congestive heart failure chronicity: unspecified congestive heart failure chronicity Qualified Code(s): I50.9 - Heart failure, unspecified (8) Bacteremia Code(s): R78.81 - BACTEREMIA Assessment/Plan Agree with ABX per ID O2 as needed Sputum be collected BD TX PRN AC for AFib Follow sensitivities No smoking counseled Will follow Thank you. Dr Marquez
[2016-11-14] MEDS: HEPARIN INFUSION - 500 ML IVPB SCH (13:36)
[2016-11-14] MEDS ORDERED: HEPARIN NA (PORCINE) 5,000 UNITS/ML 1ML VIAL IVPUSH ONE (16:30)
[2016-11-14] MEDS ORDERED: PT OWN MED DRAWER 7, Y5N ONE (22:52)
--- NOTE | 2016-11-14 23:42 | CONSULT ---
Consult Consult Specialty:: endocrine Reason for Consultation:: shortness of breath weakness, - History of Present Illness Chief Complaint: weakness,difficulty breathing diffuse lower legg rash History of Present Illness: 61-year-old male with past medical history of A. fib status post 2 ablations on amiodarone, mechanical valve replacement (aortic, mitral) endocarditis, CHF, COPD, who presents to emergency department today complaining of shortness of breath for one week. Patient states that he was recently bit by a tick and was started on doxycycline this week. He feels like he is more short of breath than usual on exertion. he feels cold weakness,and difficulty walking from the diffuse legg reddness and weaknes - Past Medical History Cardio/Vascular: Yes: AFIB, CHF, HTN, Hyperlipdemia, Other (AVR/MVR) Pulmonary: Yes: COPD Renal/: Yes: Renal Inusuff Infectious Disease: Yes: Other (H/O ENDOCARDITIS) - Past Surgical History Past Surgical History: Yes: Valve Replacement - Alcohol/Substance Use Hx Alcohol Use: No - Smoking History Smoking history: Former smoker Have you smoked in the past 12 months: No If you are a former smoker, when did you quit?: 5 YRS Home Medications - Allergies Allergies/Adverse Reactions: Allergies Allergy/AdvReac Type Severity Reaction Status Date / Time No Known Allergies Allergy Verified 11/12/16 16:12 - Home Medications Home Medications: Ambulatory Orders Metolazone [Zaroxolyn] 2.5 mg PO ASDIR PRN 06/21/15 Metoprolol Succinate [Toprol XL -] 50 mg PO BID 06/21/15 Simvastatin [Zocor -] 20 mg PO HS 06/21/15 Warfarin Sodium [Coumadin] 5 mg PO HS 06/21/15 Amiodarone HCl [Cordarone -] 200 mg PO DAILY 10/29/15 Furosemide [Lasix -] 80 mg PO BID 11/28/15 Potassium Chloride [K-Dur -] 20 meq PO DAILY 11/28/15 Spironolactone 50 mg PO DAILY #30 tablet 11/28/15 Zolpidem Tartrate [Ambien] 10 mg PO HS 11/28/15 Family Disease History - Family Disease History Family Disease History: Diabetes: Father (Throat cancer), Other: Father, Mother (Breast and lung cancer) Review of Systems - Review of Systems Constitutional: reports: Lethargy, Loss of Appetite, Weakness Eyes: reports: No Symptoms HENT: reports: No Symptoms Neck: reports: No Symptoms Cardiovascular: reports: Palpitations, Shortness of Breath Respiratory: reports: Exercise Intolerance, SOB on Exertion Gastrointestinal: reports: Bloating, Constipation Genitourinary: reports: No Symptoms Breasts: reports: No Symptoms Reported Musculoskeletal: reports: Muscle Cramps, Muscle Weakness Physical Exam Vital Signs: Vital Signs Temperature 97.4 F L 11/14/16 17:00 Pulse Rate 89 11/14/16 17:00 Respiratory Rate 20 11/14/16 17:00 Blood Pressure 95/60 11/14/16 17:00 O2 Sat by Pulse Oximetry (%) 100 11/14/16 09:00 Constitutional: Yes: Anxious Eyes: Yes: EOM Intact HENT: Yes: Normocephalic Neck: Yes: Trachea Midline, Thyromegaly Cardiovascular: Yes: Regular Rate and Rhythm Respiratory: Yes: SOB, SOB on Exertion, Tachypnea Gastrointestinal: Yes: Abdomen, Obese ...Rectal Exam: Yes: Deferred Renal/: Yes: WNL Breast(s): Yes: WNL Musculoskeletal: Yes: Joint Stiffness, Joint Swelling, Muscle Pain, Muscle Weakness Extremities: Yes: Cool Edema: LLE: 2+, RLE: 2+ Peripheral Pulses WNL: Yes Integumentary: Yes: Onychomycosis, Venous Stasis Changes Labs: CBC, BMP 11/14/16 07:00 11/14/16 07:00 Problem List - Problems (1) Bacteremia Code(s): R78.81 - BACTEREMIA (2) Cellulitis Code(s): L03.90 - CELLULITIS, UNSPECIFIED (3) Heart valve replaced Code(s): Z95.2 - PRESENCE OF PROSTHETIC HEART VALVE (4) Renal insufficiency Code(s): N28.9 - DISORDER OF KIDNEY AND URETER, UNSPECIFIED (5) Supratherapeutic INR Code(s): R79.1 - ABNORMAL COAGULATION PROFILE (6) Atrial fibrillation Code(s): I48.91 - UNSPECIFIED ATRIAL FIBRILLATION Qualifiers: Atrial fibrillation type: persistent Qualified Code(s): I48.1 - Persistent atrial fibrillation Assessment/Plan Current Active Problems Anemia (Acute) Bacteremia (Acute) Cellulitis (Acute) Heart valve replaced (Acute) Pneumonia (Acute) Renal insufficiency (Acute) Supratherapeutic INR (Acute) hypercalcemia Abnormal Lab Results 11/14/16 11/14/16 11/14/16 07:00 07:00 07:00 WBC 12.4 H RBC 3.59 L Hgb 10.2 L Hct 30.7 L RDW 16.7 H INR 1.36 H D PTT (Actin FS) Sodium 134 L Chloride 96 L BUN 56 H Creatinine 1.7 H Random Glucose 115 H Calcium 10.2 H Total Bilirubin 2.3 H D Alkaline Phosphatase 231 H 11/14/16 11/14/16 11:18 17:00 WBC RBC Hgb Hct RDW INR 1.39 H PTT (Actin FS) 60.0 H Sodium Chloride BUN Creatinine Random Glucose Calcium Total Bilirubin Alkaline Phosphatase Laboratory Results - last 24 hr 11/13/16 11/14/16 11/14/16 08:05 07:00 07:00 WBC 12.4 H RBC 3.59 L Hgb 10.2 L Hct 30.7 L MCV 85.4 MCH 28.4 MCHC 33.3 RDW 16.7 H Plt Count 165 MPV 8.1 Neutrophils % 82.2 Lymphocytes % 11.1 Monocytes % 5.1 Eosinophils % 1.3 Basophils % 0.3 INR 1.36 H D PTT (Actin FS) Sodium Potassium Chloride Carbon Dioxide Anion Gap BUN Creatinine Creat Clearance w eGFR Random Glucose Calcium Magnesium Iron 63 TIBC 264 Iron Saturation 24 Total Bilirubin AST ALT Alkaline Phosphatase Total Protein Albumin 11/14/16 11/14/16 11/14/16 07:00 11:18 17:00 WBC RBC Hgb Hct MCV MCH MCHC RDW Plt Count MPV Neutrophils % Lymphocytes % Monocytes % Eosinophils % Basophils % INR 1.39 H PTT (Actin FS) 60.0 H Sodium 134 L Potassium 4.0 D Chloride 96 L Carbon Dioxide 27 Anion Gap 11 BUN 56 H Creatinine 1.7 H Creat Clearance w eGFR 41.04 Random Glucose 115 H Calcium 10.2 H Magnesium 2.0 Iron TIBC Iron Saturation Total Bilirubin 2.3 H D AST 24 ALT 16 Alkaline Phosphatase 231 H Total Protein 7.9 Albumin 3.4 plan: check tsh free t4 pth intact molecule continue lasix iv
[2016-11-15] MEDS: VANCOMYCIN 1 GRAM (PRE-DOCKED) 250 ML IVPB SCH ×2 (00:10→14:44)
[2016-11-15] MEDS: ZOLPIDEM TARTRATE 5 MG TABLET PO PRN (00:15)
[2016-11-15] MEDS: FUROSEMIDE 40 MG/4 ML INJECTABLE VIAL IVPUSH SCH ×2 (06:17→17:00)
[2016-11-15 07:52] LABS: MCH 28.7 pg (25.7-33.7); MEAN CELL VOLUME 84.4 fl (80-96); MEAN PLT VOLUME 7.7 fl (7.5-11.1); PLATELET COUNT 180 K/MM3 (134-434); RDW 16.2 % (11.9-15.9); WHITE BLOOD COUNT 14.3 K/mm3 (4.0-10.0)
[2016-11-15 08:36] LABS: ALBUMIN 3.3 g/dl (3.4-5.0); ALK PHOS 249 U/L (45-117); ANION GAP 11 (8-16); BILIRUBIN,TOTAL 1.9 mg/dL (0.2-1.0); CALCIUM 9.7 mg/dL (8.5-10.1); CO2 28 mmol/L (21-32); CREATININE 1.6 mg/dL (0.7-1.3); GLUCOSE,RANDOM 136 mg/dL (74-106); SGOT/AST 28 U/L (15-37); SGPT/ALT 17 U/L (12-78); TOT PROT 8.1 g/dl (6.4-8.2)
--- NOTE | 2016-11-15 09:25 | EKG ---
Test Reason : Blood Pressure : / mmHG Vent. Rate : 075 BPM Atrial Rate : 075 BPM P-R Int : 304 ms QRS Dur : 174 ms QT Int : 578 ms P-R-T Axes : 043 088 -11 degrees QTc Int : 645 ms SINUS RHYTHM WITH 1ST DEGREE A-V BLOCK LEFT BUNDLE BRANCH BLOCK ABNORMAL ECG WHEN COMPARED WITH ECG OF 12-NOV-2016 19:28, INVERTED T WAVES HAVE REPLACED NONSPECIFIC T WAVE ABNORMALITY IN INFERIOR LEADS QT HAS LENGTHENED Confirmed by MARSHALL RAMSEY MD ([id number]) on 11/15/2016 9:25:26 AM Referred By: Jacque FELIX Confirmed By:MARSHALL RAMSEY MD
--- NOTE | 2016-11-15 09:36 | EKG ---
Test Reason : Blood Pressure : / mmHG Vent. Rate : 069 BPM Atrial Rate : 069 BPM P-R Int : 264 ms QRS Dur : 166 ms QT Int : 560 ms P-R-T Axes : 066 088 118 degrees QTc Int : 600 ms SINUS RHYTHM WITH 1ST DEGREE A-V BLOCK LEFT BUNDLE BRANCH BLOCK ABNORMAL ECG WHEN COMPARED WITH ECG OF 29-OCT-2015 12:16, NONSPECIFIC T WAVE ABNORMALITY NOW EVIDENT IN INFERIOR LEADS Confirmed by ROXY TAMAYO, MARSHALL ([id number]) on 11/15/2016 9:35:50 AM Referred By: Confirmed By:MARSHALL RAMSEY MD
[2016-11-15] MEDS: POTASSIUM CHLORIDE TABS 20 MEQ TABLET.ER (FP) PO SCH ×2 (09:40→21:02)
[2016-11-15] MEDS: SPIRONOLACTONE 25 MG TABLET (FP) PO SCH (09:40)
[2016-11-15] MEDS: AMIODARONE HCL 200 MG TABLET (FP) PO SCH (09:40)
[2016-11-15] MEDS: CEFTRIAXONE 50 ML IVPB SCH (09:44)
[2016-11-15] MEDS: DOXYCYCLINE HYCLATE 100 MG CAPSULE PO SCH ×2 (09:44→17:02)
[2016-11-15] MEDS: HEPARIN INFUSION - 500 ML IVPB SCH ×3 (09:45→18:08)
--- NOTE | 2016-11-15 10:34 | PN ---
Progress Note, Physician History of Present Illness: Awake, alert No c/o leg pain No c/o fever/ chills Denies chest pain / dyspnea/ cough BC + Strep sp - Current Medication List Current Medications: Active Medications Acetaminophen (Tylenol -) 650 mg PO Q4H PRN PRN Reason: FEVER OR PAIN Last Admin: 11/13/16 13:16 Dose: 650 mg Amiodarone HCl (Cordarone -) 200 mg PO DAILY [facility] Last Admin: 11/15/16 09:40 Dose: 200 mg Doxycycline Hyclate (Vibramycin -) 100 mg PO BID@1000,1800 [facility] Last Admin: 11/15/16 09:44 Dose: 100 mg Furosemide (Lasix Injection -) 40 mg IVPUSH BID@0600,1400 [facility] Last Admin: 11/15/16 06:17 Dose: 40 mg Heparin Sodium (Porcine) (Heparin -) 1,000 unit IVPUSH PRN PRN PRN Reason: Heparin Heparin Sodium (Porcine) (Heparin -) 5,000 unit IVPUSH PRN PRN PRN Reason: Heparin Last Admin: 11/15/16 09:46 Dose: 5,000 unit Vancomycin HCl (Vancomycin (Pre-Docked)) 250 mls @ 200 mls/hr IVPB BID@0100, 1300 [facility] Last Admin: 11/15/16 00:10 Dose: 200 mls/hr Ceftriaxone Sodium (Rocephin 1gm Ivpb (Pre-Docked)) 50 mls @ 100 mls/hr IVPB DAILY [facility] Last Admin: 11/15/16 09:44 Dose: 100 mls/hr Gentamicin Sulfate 60 mg/ (Sodium Chloride) 101.5 mls @ 101.5 mls/hr IVPB Q12H [facility] Last Admin: 11/14/16 23:23 Dose: 101.5 mls/hr Heparin Sodium/Dextrose (Heparin Infusion -) 500 mls @ 20 mls/hr IVPB TITR SID ; 1,000 UNITS/HR PRN Reason: Protocol Last Admin: 11/15/16 09:45 Dose: 23 mls/hr Potassium Chloride (K-Dur -) 20 meq PO BID [facility] Last Admin: 11/15/16 09:40 Dose: 20 meq Spironolactone (Aldactone -) 50 mg PO DAILY [facility] Last Admin: 11/15/16 09:40 Dose: 50 mg Zolpidem Tartrate (Ambien -) 10 mg PO HS PRN Last Admin: 11/15/16 00:15 Dose: 10 mg - Objective Vital Signs: Vital Signs Temperature 97.5 F L 11/15/16 09:39 Pulse Rate 101 H 11/15/16 09:39 Respiratory Rate 20 11/15/16 09:39 Blood Pressure 109/60 11/15/16 09:39 O2 Sat by Pulse Oximetry (%) 98 11/14/16 21:00 Constitutional: Yes: No Distress Eyes: Yes: Conjunctiva Clear Cardiovascular: Yes: Regular Rate and Rhythm, Murmur, S1, S2 Respiratory: Yes: Other (+ crepitations at bases bilaterally) Gastrointestinal: Yes: Normal Bowel Sounds, Soft. No: Tenderness Extremities: Yes: Other (decreased swelling R LE + shiny erythema, warmth R LE) Labs: CBC, BMP 11/15/16 07:25 11/15/16 07:25 INR, PTT INR 1.39 (0.82-1.09) H 11/14/16 11:18 Assessment/Plan Cellulitis R LE + BC Strep - to be identified Possible PVE Possible pneumonia Await final BC result Continue vancomycin Low dose gentamicin for synergy Ceftriaxone for possible pneumonia Echo Sputum c/s, legionella ag
--- NOTE | 2016-11-15 11:04 | PN ---
Progress Note, Physician History of Present Illness: PULMONARY ALERT,LESS DYSPNEIC. - Current Medication List Current Medications: Active Medications Acetaminophen (Tylenol -) 650 mg PO Q4H PRN PRN Reason: FEVER OR PAIN Last Admin: 11/13/16 13:16 Dose: 650 mg Amiodarone HCl (Cordarone -) 200 mg PO DAILY [facility] Last Admin: 11/15/16 09:40 Dose: 200 mg Doxycycline Hyclate (Vibramycin -) 100 mg PO BID@1000,1800 [facility] Last Admin: 11/15/16 09:44 Dose: 100 mg Furosemide (Lasix Injection -) 40 mg IVPUSH BID@0600,1400 [facility] Last Admin: 11/15/16 06:17 Dose: 40 mg Heparin Sodium (Porcine) (Heparin -) 1,000 unit IVPUSH PRN PRN PRN Reason: Heparin Heparin Sodium (Porcine) (Heparin -) 5,000 unit IVPUSH PRN PRN PRN Reason: Heparin Last Admin: 11/15/16 09:46 Dose: 5,000 unit Vancomycin HCl (Vancomycin (Pre-Docked)) 250 mls @ 200 mls/hr IVPB BID@0100, 1300 [facility] Last Admin: 11/15/16 00:10 Dose: 200 mls/hr Ceftriaxone Sodium (Rocephin 1gm Ivpb (Pre-Docked)) 50 mls @ 100 mls/hr IVPB DAILY [facility] Last Admin: 11/15/16 09:44 Dose: 100 mls/hr Gentamicin Sulfate 60 mg/ (Sodium Chloride) 101.5 mls @ 101.5 mls/hr IVPB Q12H [facility] Last Admin: 11/14/16 23:23 Dose: 101.5 mls/hr Heparin Sodium/Dextrose (Heparin Infusion -) 500 mls @ 20 mls/hr IVPB TITR SID ; 1,000 UNITS/HR PRN Reason: Protocol Last Admin: 11/15/16 09:45 Dose: 23 mls/hr Potassium Chloride (K-Dur -) 20 meq PO BID [facility] Last Admin: 11/15/16 09:40 Dose: 20 meq Spironolactone (Aldactone -) 50 mg PO DAILY [facility] Last Admin: 11/15/16 09:40 Dose: 50 mg Zolpidem Tartrate (Ambien -) 10 mg PO HS PRN Last Admin: 11/15/16 00:15 Dose: 10 mg - Objective Vital Signs: Vital Signs Temperature 97.5 F L 11/15/16 09:39 Pulse Rate 101 H 11/15/16 09:39 Respiratory Rate 20 11/15/16 09:39 Blood Pressure 109/60 11/15/16 09:39 O2 Sat by Pulse Oximetry (%) 98 11/14/16 21:00 Constitutional: Yes: Well Nourished, Calm Eyes: Yes: WNL HENT: Yes: WNL Neck: Yes: WNL Cardiovascular: Yes: Pulse Irregular, S1, S2 Respiratory: Yes: Rhonchi (FEW RHONCHI) Gastrointestinal: Yes: Normal Bowel Sounds, Soft Extremities: Yes: WNL Edema: Yes Edema: LLE: Trace, RLE: Trace Labs: CBC, BMP 11/15/16 07:25 11/15/16 07:25 INR, PTT INR 1.39 (0.82-1.09) H 11/14/16 11:18 Assessment/Plan Problem List - Problems (1) Anemia Code(s): D64.9 - ANEMIA, UNSPECIFIED Qualifiers: Anemia type: unspecified type Qualified Code(s): D64.9 - Anemia, unspecified (2) Cellulitis Code(s): L03.90 - CELLULITIS, UNSPECIFIED (3) Heart valve replaced Code(s): Z95.2 - PRESENCE OF PROSTHETIC HEART VALVE (4) Pneumonia Code(s): J18.9 - PNEUMONIA, UNSPECIFIED ORGANISM (5) Supratherapeutic INR Code(s): R79.1 - ABNORMAL COAGULATION PROFILE (6) Atrial fibrillation Code(s): I48.91 - UNSPECIFIED ATRIAL FIBRILLATION Qualifiers: Atrial fibrillation type: persistent Qualified Code(s): I48.1 - Persistent atrial fibrillation (7) CHF (congestive heart failure) Code(s): I50.9 - HEART FAILURE, UNSPECIFIED Qualifiers: Congestive heart failure type: unspecified congestive heart failure type Congestive heart failure chronicity: unspecified congestive heart failure chronicity Qualified Code(s): I50.9 - Heart failure, unspecified (8) Bacteremia Code(s): R78.81 - BACTEREMIA Assessment/Plan ABX per ID O2 as needed BD TX AC for AFib DR RODAS
[2016-11-15 11:32] LABS: INR 1.36 (0.82-1.09)
--- NOTE | 2016-11-15 11:50 | CONS ---
DATE OF CONSULTATION: 11/13/2016 HISTORY: The patient is a 61-year-old male status post aortic and mitral valve replacement evaluated for cellulitis of the right lower extremity. He reports a history of chronic dermatitis of the lower extremities bilaterally. According to his , he began to scratch his right lower extremity resulting in increasing erythema, warmth, and swelling as well as weepage of fluid. He presented to the emergency room on October 13, 2016 with a [id number] of increasing shortness of breath. He was admitted to the telemetry unit with the diagnosis of congestive heart failure. He denies any traumatic injury to his right lower extremity. No reports of insect of animal bites or scratches. He did remove a tick from his left upper extremity approximately 2 weeks ago for which he was seen in his primary care doctor's office and was prescribed doxycycline. He denies any associated fever or chills. No complaints of chest pain or shortness of breath. The patient is status post aortic and mitral valve replacements. 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 Since that time, he has had no problems. He denies a history of recurrent endocarditis. His valves have been functioning well. PAST MEDICAL HISTORY: Positive for atrial fibrillation status post 2 ablations on amiodarone, coronary artery disease, congestive heart failure, atrial fibrillation, COPD, hypertension, hyperlipidemia. PAST SURGICAL HISTORY: Status post aortic and mitral valve replacements. ALLERGIES: No known allergies. MEDICATIONS: Include Zaroxolyn, Toprol, Zocor, Coumadin, amiodarone, Lasix, K-Dur, spironolactone. SOCIAL HISTORY: Former smoker. Lives at home with his who is a nurse. SYSTEMS REVIEW: Neurologic: No loss of consciousness, seizure activity, focal weakness. Cardiac: As per HPI. Respiratory: As per HPI. Gastrointestinal: Negative vomiting or diarrhea. Genitourinary: Negative for urinary tract infection. LABORATORY DATA: White count 12.8, hematocrit 28.7, platelet count 188, BUN 60, creatinine 1.8. Blood and urine cultures are pending. PHYSICAL EXAMINATION: General: He is awake and alert. He is in no acute distress. Vital Signs: Temperature 97, blood pressure 93/58, pulse 74 and regular, respirations 20 per minute. HEENT: Sclerae anicteric. Heart: Sounds S1, S2. Positive mechanical valves. Lungs: A few crepitations at the bases bilaterally. Abdomen: Soft. No tenderness elicited. No mass, rebound, or rigidity. Extremities: Negative for pedal edema. Right lower extremity has erythema, warmth, and swelling extending from the pretibial aspect to the calf area. There is no calf tenderness. There are some superficial breaks in the skin with serous seepage. No crepitus, fluctuance, or lymphangitic streaking. IMPRESSION: 1. Cellulitis of the right lower extremity. 2. Status post mitral and aortic valve replacements. 3. Status post tick exposure. PLAN: Await blood culture results. We will obtain Lyme and anaplasma serology. Empiric antibiotic coverage with vancomycin for cellulitis in this patient with mechanical valves. We will also continue doxycycline 100 mg p.o. b.i.d. for tick exposure, possible Lyme/anaplasma. We will follow. Thank you for the kind referral. TAMMY CORTEZ M.D. [id number]
[2016-11-15] MEDS: GENTAMICIN INJECTION 60 MG in SODIUM CHLORIDE 100 ML IVPB SCH ×2 (13:20→23:38)
[2016-11-15 13:36] LABS: PLATELET ESTIMATE ADEQUATE (NORMAL)
--- NOTE | 2016-11-15 15:25 | PN ---
Progress Note (short form) - Note Progress Note: s: no cp palps dizzy; mild sob improving - Current Medication List Current Medications Generic Name Dose Route Start Last Admin Trade Name Freq PRN Reason Stop Dose Admin Acetaminophen 650 mg 11/13/16 12:29 11/13/16 13:16 Tylenol - PO 650 mg Q4H PRN Administration FEVER OR PAIN Amiodarone HCl 200 mg 11/13/16 10:00 11/15/16 09:40 Cordarone - PO 200 mg DAILY SID Administration Doxycycline Hyclate 100 mg 11/13/16 18:00 11/15/16 09:44 Vibramycin - PO 100 mg BID@1000,1800 SID Administration Furosemide 40 mg 11/13/16 14:00 11/15/16 06:17 Lasix Injection - IVPUSH 40 mg BID@0600,1400 SID Administration Heparin Sodium (Porcine) 1,000 unit 11/14/16 11:57 Heparin - IVPUSH PRN PRN Heparin Heparin Sodium (Porcine) 5,000 unit 11/14/16 11:57 11/15/16 09:46 Heparin - IVPUSH 5,000 unit PRN PRN Administration Heparin Vancomycin HCl 250 mls @ 200 mls/hr 11/13/16 15:02 11/15/16 14:44 Vancomycin (Pre-Docked) IVPB 200 mls/hr BID@0100,1300 SID Administration Ceftriaxone Sodium 50 mls @ 100 mls/hr 11/14/16 11:30 11/15/16 09:44 Rocephin 1gm Ivpb (Pre-Docked) IVPB 100 mls/hr DAILY SID Administration Gentamicin Sulfate 60 mg/ 101.5 mls @ 101.5 mls/hr 11/14/16 12:00 11/15/16 13: 20 Sodium Chloride IVPB 101.5 mls/hr Q12H SID Administration Heparin Sodium/Dextrose 500 mls @ 20 mls/hr 11/14/16 12:00 11/15/16 09:45 Heparin Infusion - IVPB 23 mls/hr TITR SID Administration Protocol 1,000 UNITS/HR Potassium Chloride 20 meq 11/13/16 10:00 11/15/16 09:40 K-Dur - PO 20 meq BID SID Administration Spironolactone 50 mg 11/13/16 10:00 11/15/16 09:40 Aldactone - PO 50 mg DAILY SID Administration Zolpidem Tartrate 10 mg 11/13/16 22:00 11/15/16 00:15 Ambien - PO 10 mg HS PRN Administration - Objective Vital Signs: Vital Signs Period Temp Pulse Resp BP Sys/Downs Pulse Ox Last 24 Hr 97.4 F-98.2 F 89-102 16-20 95-126/56-61 98 nad no jvd rrr s1s2 no mrg ctabl nl eff aaox3 trace le edema bl no jaundice diaphoresis abd nt nd pos bs Laboratory Last Values WBC 14.3 K/mm3 (4.0-10.0) H 11/15/16 07:25 RBC 3.55 M/mm3 (4.00-5.60) L 11/15/16 07:25 Hgb 10.2 GM/dL (11.7-16.9) L 11/15/16 07:25 Hct 29.9 % (35.4-49) L 11/15/16 07:25 MCV 84.4 fl (80-96) 11/15/16 07:25 MCH 28.7 pg (25.7-33.7) 11/15/16 07:25 MCHC 34.0 g/dl (32.0-35.9) 11/15/16 07:25 RDW 16.2 % (11.9-15.9) H 11/15/16 07:25 Plt Count 180 K/MM3 (134-434) 11/15/16 07:25 MPV 7.7 fl (7.5-11.1) 11/15/16 07:25 Neutrophils % 89.0 % (42.8-82.8) H 11/15/16 07:25 Lymphocytes % 7.0 % (8-40) L D 11/15/16 07:25 Monocytes % 3.0 % (3.8-10.2) L 11/15/16 07:25 Eosinophils % 1.3 % (0-4.5) 11/14/16 07:00 Basophils % 0.3 % (0-2.0) 11/14/16 07:00 Myelocytes 1 % (0-2) 11/15/16 07:25 Differential Comment Manual diff done 11/15/16 07:25 Platelet Estimate Adequate (NORMAL) 11/15/16 07:25 INR 1.36 (0.82-1.09) H 11/15/16 07:25 PTT (Actin FS) 37.7 SECONDS (26.9-34.4) H D 11/15/16 07:25 Sodium 132 mmol/L (136-145) L 11/15/16 07:25 Potassium 3.5 mmol/L (3.5-5.1) 11/15/16 07:25 Chloride 93 mmol/L (98-107) L 11/15/16 07:25 Carbon Dioxide 28 mmol/L (21-32) 11/15/16 07:25 Anion Gap 11 (8-16) 11/15/16 07:25 BUN 52 mg/dL (7-18) H 11/15/16 07:25 Creatinine 1.6 mg/dL (0.7-1.3) H 11/15/16 07:25 Creat Clearance w eGFR 44.02 (>60) 11/15/16 07:25 Random Glucose 136 mg/dL (74-106) H 11/15/16 07:25 Hemoglobin A1c % 5.9 % (4.8-6.0) 11/13/16 08:05 Calcium 9.7 mg/dL (8.5-10.1) 11/15/16 07:25 Phosphorus 3.3 mg/dL (2.5-4.9) D 11/12/16 19:48 Magnesium 2.0 mg/dL (1.8-2.4) 11/14/16 07:00 Iron 63 ug/dL (38-169) 11/13/16 08:05 TIBC 264 ug/dL (250-450) 11/13/16 08:05 Iron Saturation 24 % (15-55) 11/13/16 08:05 Ferritin 395.970 ng/ml (16.4-293.9) H 11/13/16 08:05 Total Bilirubin 1.9 mg/dL (0.2-1.0) H 11/15/16 07:25 AST 28 U/L (15-37) 11/15/16 07:25 ALT 17 U/L (12-78) 11/15/16 07:25 Alkaline Phosphatase 249 U/L (45-117) H 11/15/16 07:25 Creatine Kinase 31 IU/L (39-308) L 11/12/16 19:36 Troponin I < 0.02 ng/ml (0.00-0.05) D 11/12/16 19:36 B-Natriuretic Peptide 2378.84 pg/ml (5-125) H 11/13/16 08:05 Total Protein 8.1 g/dl (6.4-8.2) 11/15/16 07:25 Albumin 3.3 g/dl (3.4-5.0) L 11/15/16 07:25 Triglycerides 198 mg/dL (35-160) H D 11/13/16 08:05 Cholesterol 164 mg/dL (50-200) 11/13/16 08:05 Total LDL Cholesterol 112 mg/dL (5-100) H 11/13/16 08:05 HDL Cholesterol 20 mg/dL (40-60) L D 11/13/16 08:05 Vitamin B12 937 pg/ml (180-914) H 11/13/16 08:05 Urine Color Yellow 11/12/16 20:29 Urine Appearance Clear 11/12/16 20:29 Urine pH 5.0 (5.0-8.0) 11/12/16 20:29 Ur Specific [place] 1.010 (1.005-1.025) 11/12/16 20:29 Urine Protein Negative (NEGATIVE) 11/12/16 20:29 Urine Glucose (UA) Negative (NEGATIVE) 11/12/16 20:29 Urine Ketones Negative (NEGATIVE) 11/12/16 20:29 Urine Blood Negative (NEGATIVE) 11/12/16 20:29 Urine Nitrite Negative (NEGATIVE) 11/12/16 20:29 Urine Bilirubin Negative (NEGATIVE) 11/12/16 20:29 Urine Urobilinogen 2.0 mg/dL (0.2-1.0) 11/12/16 20:29 Ur Leukocyte Esterase Negative (NEGATIVE) 11/12/16 20:29 Stool Occult Blood Negative (NEGATIVE) 11/15/16 11:00 tele: sr Assessment/Plan 1)acute systolic CHF exacerbation -Elevated BNP 2378 -VIDA in 10/2015 showing mechancial MVR and bioprosthetic AVR, mildly reduced LVEF with global hypocontractility. -continue now with lasix 40mg IV BID -Continue Aldactone for now but may need to hold with Cr continues to rise. -check updated echo 2) Afib -Currently in SR on Amiodarone -cont AC per INR 3) Prior bio AVR, mechanical MVR -cont coumadin with hep gtt bridging -check updated echo 4)pna, +bld cx: -on abx, ID following
[2016-11-15] MEDS: HEPARIN NA (PORCINE) 5,000 UNITS/ML 1ML VIAL IVPUSH PRN (18:09)
--- NOTE | 2016-11-15 18:23 | PN ---
Progress Note, Physician - Current Medication List Current Medications: Active Medications Acetaminophen (Tylenol -) 650 mg PO Q4H PRN PRN Reason: FEVER OR PAIN Last Admin: 11/13/16 13:16 Dose: 650 mg Amiodarone HCl (Cordarone -) 200 mg PO DAILY [facility] Last Admin: 11/15/16 09:40 Dose: 200 mg Doxycycline Hyclate (Vibramycin -) 100 mg PO BID@1000,1800 [facility] Last Admin: 11/15/16 17:02 Dose: 100 mg Furosemide (Lasix Injection -) 40 mg IVPUSH BID@0600,1400 [facility] Last Admin: 11/15/16 17:00 Dose: 40 mg Heparin Sodium (Porcine) (Heparin -) 1,000 unit IVPUSH PRN PRN PRN Reason: Heparin Last Admin: 11/15/16 18:09 Dose: 1,000 unit Heparin Sodium (Porcine) (Heparin -) 5,000 unit IVPUSH PRN PRN PRN Reason: Heparin Last Admin: 11/15/16 09:46 Dose: 5,000 unit Vancomycin HCl (Vancomycin (Pre-Docked)) 250 mls @ 200 mls/hr IVPB BID@0100, 1300 [facility] Last Admin: 11/15/16 14:44 Dose: 200 mls/hr Ceftriaxone Sodium (Rocephin 1gm Ivpb (Pre-Docked)) 50 mls @ 100 mls/hr IVPB DAILY [facility] Last Admin: 11/15/16 09:44 Dose: 100 mls/hr Gentamicin Sulfate 60 mg/ (Sodium Chloride) 101.5 mls @ 101.5 mls/hr IVPB Q12H [facility] Last Admin: 11/15/16 13:20 Dose: 101.5 mls/hr Heparin Sodium/Dextrose (Heparin Infusion -) 500 mls @ 20 mls/hr IVPB TITR SID ; 1,000 UNITS/HR PRN Reason: Protocol Last Admin: 11/15/16 18:08 Dose: 25 mls/hr Potassium Chloride (K-Dur -) 20 meq PO BID [facility] Last Admin: 11/15/16 09:40 Dose: 20 meq Spironolactone (Aldactone -) 50 mg PO DAILY [facility] Last Admin: 11/15/16 09:40 Dose: 50 mg Zolpidem Tartrate (Ambien -) 10 mg PO HS PRN Last Admin: 11/15/16 00:15 Dose: 10 mg - Objective Vital Signs: Vital Signs Temperature 97.9 F 11/15/16 14:00 Pulse Rate 98 H 11/15/16 14:00 Respiratory Rate 18 11/15/16 14:00 Blood Pressure 103/55 11/15/16 14:00 O2 Sat by Pulse Oximetry (%) 98 11/14/16 21:00 Labs: CBC, BMP 11/15/16 07:25 11/15/16 07:25 INR, PTT INR 1.36 (0.82-1.09) H 11/15/16 07:25 Problem List - Problems (1) Anemia Code(s): D64.9 - ANEMIA, UNSPECIFIED Qualifiers: Anemia type: unspecified type Qualified Code(s): D64.9 - Anemia, unspecified (2) Bacteremia Code(s): R78.81 - BACTEREMIA (3) Cellulitis Code(s): L03.90 - CELLULITIS, UNSPECIFIED (4) Heart valve replaced Code(s): Z95.2 - PRESENCE OF PROSTHETIC HEART VALVE (5) Pneumonia Code(s): J18.9 - PNEUMONIA, UNSPECIFIED ORGANISM (6) Renal insufficiency Code(s): N28.9 - DISORDER OF KIDNEY AND URETER, UNSPECIFIED (7) Atrial fibrillation Code(s): I48.91 - UNSPECIFIED ATRIAL FIBRILLATION Qualifiers: Atrial fibrillation type: persistent Qualified Code(s): I48.1 - Persistent atrial fibrillation (8) CHF (congestive heart failure) Code(s): I50.9 - HEART FAILURE, UNSPECIFIED Qualifiers: Congestive heart failure type: unspecified congestive heart failure type Congestive heart failure chronicity: unspecified congestive heart failure chronicity Qualified Code(s): I50.9 - Heart failure, unspecified (9) Hypokalemia Code(s): E87.6 - HYPOKALEMIA
--- NOTE | 2016-11-15 18:27 | PN ---
Progress Note, Physician Chief Complaint: AWAKE ALERT C/O ANXIETY C/O BRBPR - Current Medication List Current Medications: Active Medications Acetaminophen (Tylenol -) 650 mg PO Q4H PRN PRN Reason: FEVER OR PAIN Last Admin: 11/13/16 13:16 Dose: 650 mg Amiodarone HCl (Cordarone -) 200 mg PO DAILY [facility] Last Admin: 11/15/16 09:40 Dose: 200 mg Doxycycline Hyclate (Vibramycin -) 100 mg PO BID@1000,1800 [facility] Last Admin: 11/15/16 17:02 Dose: 100 mg Furosemide (Lasix Injection -) 40 mg IVPUSH BID@0600,1400 [facility] Last Admin: 11/15/16 17:00 Dose: 40 mg Heparin Sodium (Porcine) (Heparin -) 1,000 unit IVPUSH PRN PRN PRN Reason: Heparin Last Admin: 11/15/16 18:09 Dose: 1,000 unit Heparin Sodium (Porcine) (Heparin -) 5,000 unit IVPUSH PRN PRN PRN Reason: Heparin Last Admin: 11/15/16 09:46 Dose: 5,000 unit Vancomycin HCl (Vancomycin (Pre-Docked)) 250 mls @ 200 mls/hr IVPB BID@0100, 1300 [facility] Last Admin: 11/15/16 14:44 Dose: 200 mls/hr Ceftriaxone Sodium (Rocephin 1gm Ivpb (Pre-Docked)) 50 mls @ 100 mls/hr IVPB DAILY [facility] Last Admin: 11/15/16 09:44 Dose: 100 mls/hr Gentamicin Sulfate 60 mg/ (Sodium Chloride) 101.5 mls @ 101.5 mls/hr IVPB Q12H [facility] Last Admin: 11/15/16 13:20 Dose: 101.5 mls/hr Heparin Sodium/Dextrose (Heparin Infusion -) 500 mls @ 20 mls/hr IVPB TITR SID ; 1,000 UNITS/HR PRN Reason: Protocol Last Admin: 11/15/16 18:08 Dose: 25 mls/hr Potassium Chloride (K-Dur -) 20 meq PO BID [facility] Last Admin: 11/15/16 09:40 Dose: 20 meq Spironolactone (Aldactone -) 50 mg PO DAILY [facility] Last Admin: 11/15/16 09:40 Dose: 50 mg Zolpidem Tartrate (Ambien -) 10 mg PO HS PRN Last Admin: 11/15/16 00:15 Dose: 10 mg - Objective Vital Signs: Vital Signs Temperature 97.9 F 11/15/16 14:00 Pulse Rate 98 H 11/15/16 14:00 Respiratory Rate 18 11/15/16 14:00 Blood Pressure 103/55 11/15/16 14:00 O2 Sat by Pulse Oximetry (%) 98 11/14/16 21:00 Constitutional: Yes: Mild Distress Eyes: Yes: WNL HENT: Yes: WNL Neck: Yes: WNL Cardiovascular: Yes: Pulse Irregular Respiratory: Yes: On Nasal O2, Poor Air Entry Gastrointestinal: Yes: WNL Genitourinary: Yes: Other Musculoskeletal: Yes: Muscle Weakness Extremities: Yes: Deformity Edema: No Peripheral Pulses WNL: Yes Integumentary: Yes: Pressure Ulcer, Venous Stasis Changes Wound/Incision: Yes: Dressing Dry and Intact (B/L LEGS) Neurological: Yes: Pre-Existing Deficit, Unsteady Gait ...Motor Strength: LLE, RLE Psychiatric: Yes: Agitated Labs: CBC, BMP 11/15/16 07:25 11/15/16 07:25 INR, PTT INR 1.36 (0.82-1.09) H 11/15/16 07:25 Problem List - Problems (1) Anemia Code(s): D64.9 - ANEMIA, UNSPECIFIED Qualifiers: Anemia type: unspecified type Qualified Code(s): D64.9 - Anemia, unspecified (2) Bacteremia Code(s): R78.81 - BACTEREMIA (3) Cellulitis Code(s): L03.90 - CELLULITIS, UNSPECIFIED (4) Heart valve replaced Code(s): Z95.2 - PRESENCE OF PROSTHETIC HEART VALVE (5) Pneumonia Code(s): J18.9 - PNEUMONIA, UNSPECIFIED ORGANISM (6) Renal insufficiency Code(s): N28.9 - DISORDER OF KIDNEY AND URETER, UNSPECIFIED (7) Atrial fibrillation Code(s): I48.91 - UNSPECIFIED ATRIAL FIBRILLATION Qualifiers: Atrial fibrillation type: persistent Qualified Code(s): I48.1 - Persistent atrial fibrillation (8) CHF (congestive heart failure) Code(s): I50.9 - HEART FAILURE, UNSPECIFIED Qualifiers: Congestive heart failure type: unspecified congestive heart failure type Congestive heart failure chronicity: unspecified congestive heart failure chronicity Qualified Code(s): I50.9 - Heart failure, unspecified (9) Hypokalemia Code(s): E87.6 - HYPOKALEMIA (10) Rectal bleed Code(s): K62.5 - HEMORRHAGE OF ANUS AND RECTUM (11) Anxiety about health Code(s): F41.8 - OTHER SPECIFIED ANXIETY DISORDERS Assessment/Plan CONTINUE HEPARIN/AC F/U LABS GI EVAL XANAX PRN FOR ANXIETY CARDIOLOGY AND PULM EVAL APPRECIATED IV ABX NEBS OOB TO CHAIR
--- NOTE | 2016-11-15 19:02 | CON.GI ---
Consult Consult Specialty:: gastroenterology Referred by:: Dr Roche Reason for Consultation:: rectal bleeding - History of Present Illness History of Present Illness: 61 y/o male with PMH of mechanical AVR and MVR on Coumadin , coumadin toxicity , history of NSAID use was asked to be seen because of rectal bleeding. Stool guaiac was negative at 11 am. Rectal bleeding was unwitnessed. He never had a colonoscopy. He was admitted because of rapid afib - Past Medical History Cardio/Vascular: Yes: AFIB, CHF, HTN, Hyperlipdemia, Other (AVR/MVR) Pulmonary: Yes: COPD Renal/: Yes: Renal Inusuff Infectious Disease: Yes: Other (H/O ENDOCARDITIS) - Past Surgical History Past Surgical History: Yes: Valve Replacement - Alcohol/Substance Use Hx Alcohol Use: No - Smoking History Smoking history: Former smoker Have you smoked in the past 12 months: No If you are a former smoker, when did you quit?: 5 YRS Home Medications - Allergies Allergies/Adverse Reactions: Allergies Allergy/AdvReac Type Severity Reaction Status Date / Time No Known Allergies Allergy Verified 11/12/16 16:12 - Home Medications Home Medications: Ambulatory Orders Metolazone [Zaroxolyn] 2.5 mg PO ASDIR PRN 06/21/15 Metoprolol Succinate [Toprol XL -] 50 mg PO BID 06/21/15 Simvastatin [Zocor -] 20 mg PO HS 06/21/15 Warfarin Sodium [Coumadin] 5 mg PO HS 06/21/15 Amiodarone HCl [Cordarone -] 200 mg PO DAILY 10/29/15 Furosemide [Lasix -] 80 mg PO BID 11/28/15 Potassium Chloride [K-Dur -] 20 meq PO DAILY 11/28/15 Spironolactone 50 mg PO DAILY #30 tablet 11/28/15 Zolpidem Tartrate [Ambien] 10 mg PO HS 11/28/15 Family Disease History - Family Disease History Family Disease History: Diabetes: Father (Throat cancer), Other: Father, Mother (Breast and lung cancer) Review of Systems - Review of Systems Constitutional: denies: Fever Eyes: denies: Blind Spots HENT: denies: Difficult Swallowing Neck: denies: Decreased ROM Cardiovascular: denies: Chest Pain Respiratory: denies: SOB Gastrointestinal: reports: Rectal Bleeding. denies: Abdominal Pain, Constipation, Diarrhea, Dysphagia, Vomiting Blood Genitourinary: reports: Hematuria Physical Exam-GI Vital Signs: Vital Signs Temperature 97.9 F 11/15/16 14:00 Pulse Rate 98 H 11/15/16 14:00 Respiratory Rate 18 11/15/16 14:00 Blood Pressure 103/55 11/15/16 14:00 O2 Sat by Pulse Oximetry (%) 98 11/14/16 21:00 Constitutional: Yes: Well Nourished, Poor Hygeine Eyes: Yes: Occular Prosthesis Neck: Yes: Supple Cardiovascular: Yes: Regular Rate and Rhythm Respiratory: Yes: CTA Bilaterally ...Auscultate: No: Hypoactive Bowel Sounds ...Palpate: Yes: Soft. No: Firm/Rigid, Hepatomegaly, Mass, Pulsatile Mass, Splenomegaly, Tenderness ...Rectal Exam: Yes: Other (enlarged prostate , yellow stool, no blood in the rectal vault, no masses) Labs: CBC, BMP 11/15/16 07:25 11/15/16 07:25 INR, PTT INR 1.36 (0.82-1.09) H 11/15/16 07:25 Problem List - Problems (1) Rectal bleed Assessment/Plan: R> no active bleeding at this time the patient and his was informed to follow -up for out patient EGD and colonoscopy please recall as necessary Code(s): K62.5 - HEMORRHAGE OF ANUS AND RECTUM
[2016-11-16] MEDS: ZOLPIDEM TARTRATE 5 MG TABLET PO PRN (00:09)
[2016-11-16] MEDS: VANCOMYCIN 1 GRAM (PRE-DOCKED) 250 ML IVPB SCH ×2 (00:42→12:23)
[2016-11-16] MEDS: HEPARIN NA (PORCINE) 5,000 UNITS/ML 1ML VIAL IVPUSH PRN ×3 (00:49→18:16)
[2016-11-16] MEDS: HEPARIN INFUSION - 500 ML IVPB SCH ×3 (00:49→18:13)
[2016-11-16] MEDS: FUROSEMIDE 40 MG/4 ML INJECTABLE VIAL IVPUSH SCH ×2 (05:51→14:59)
[2016-11-16 08:02] LABS: CALCIUM 9.8 mg/dL (8.5-10.1); MCH 28.7 pg (25.7-33.7); MCHC 33.8 g/dl (32.0-35.9); MEAN PLT VOLUME 8.8 fl (7.5-11.1); PLATELET COUNT 134 K/MM3 (134-434); RDW 16.8 % (11.9-15.9)
[2016-11-16 08:05] LABS: INR 1.47 (0.82-1.09); PROTHROMBIN TIME (PATIENT) 16.3 SEC (9.98-11.88)
[2016-11-16 08:06] LABS: ALBUMIN 3.2 g/dl (3.4-5.0); ALK PHOS 214 U/L (45-117); ANION GAP 12 (8-16); BILIRUBIN,TOTAL 1.9 mg/dL (0.2-1.0); C-REACTIVE PROTEIN 4.6 MG/DL (0.00-0.3); CO2 26 mmol/L (21-32); CREATININE 1.4 mg/dL (0.7-1.3); GLUCOSE,RANDOM 133 mg/dL (74-106); SGOT/AST 28 U/L (15-37); SGPT/ALT 15 U/L (12-78); TOT PROT 7.6 g/dl (6.4-8.2)
[2016-11-16] MEDS ORDERED: HEPARIN INFUSION - 500 ML IVPB ONE (08:14)
--- NOTE | 2016-11-16 08:18 | PN ---
Progress Note, Physician History of Present Illness: no cp c/o sob - Current Medication List Current Medications: Active Medications Acetaminophen (Tylenol -) 650 mg PO Q4H PRN PRN Reason: FEVER OR PAIN Last Admin: 11/13/16 13:16 Dose: 650 mg Alprazolam (Xanax -) 0.25 mg PO Q8H PRN PRN Reason: ANXIETY Amiodarone HCl (Cordarone -) 200 mg PO DAILY [facility] Last Admin: 11/15/16 09:40 Dose: 200 mg Doxycycline Hyclate (Vibramycin -) 100 mg PO BID@1000,1800 [facility] Last Admin: 11/15/16 17:02 Dose: 100 mg Furosemide (Lasix Injection -) 40 mg IVPUSH BID@0600,1400 [facility] Last Admin: 11/16/16 05:51 Dose: 40 mg Heparin Sodium (Porcine) (Heparin -) 1,000 unit IVPUSH PRN PRN PRN Reason: Heparin Last Admin: 11/16/16 00:49 Dose: 1,000 unit Heparin Sodium (Porcine) (Heparin -) 5,000 unit IVPUSH PRN PRN PRN Reason: Heparin Last Admin: 11/15/16 09:46 Dose: 5,000 unit Vancomycin HCl (Vancomycin (Pre-Docked)) 250 mls @ 200 mls/hr IVPB BID@0100, 1300 [facility] Last Admin: 11/16/16 00:42 Dose: 200 mls/hr Ceftriaxone Sodium (Rocephin 1gm Ivpb (Pre-Docked)) 50 mls @ 100 mls/hr IVPB DAILY [facility] Last Admin: 11/15/16 09:44 Dose: 100 mls/hr Gentamicin Sulfate 60 mg/ (Sodium Chloride) 101.5 mls @ 101.5 mls/hr IVPB Q12H [facility] Last Admin: 11/15/16 23:38 Dose: 101.5 mls/hr Heparin Sodium/Dextrose (Heparin Infusion -) 500 mls @ 20 mls/hr IVPB TITR SID ; 1,000 UNITS/HR PRN Reason: Protocol Last Admin: 11/16/16 00:49 Dose: 27 mls/hr Potassium Chloride (K-Dur -) 20 meq PO BID [facility] Last Admin: 11/15/16 21:02 Dose: 20 meq Spironolactone (Aldactone -) 50 mg PO DAILY [facility] Last Admin: 11/15/16 09:40 Dose: 50 mg Zolpidem Tartrate (Ambien -) 10 mg PO HS PRN Last Admin: 11/16/16 00:09 Dose: 10 mg - Objective Vital Signs: Vital Signs Temperature 97.7 F 11/16/16 05:43 Pulse Rate 104 H 11/16/16 05:43 Respiratory Rate 21 11/16/16 05:43 Blood Pressure 104/54 11/16/16 05:43 O2 Sat by Pulse Oximetry (%) 98 11/15/16 20:49 Cardiovascular: Yes: Murmur, S1, S2 Respiratory: Yes: Diminished, Rales Gastrointestinal: Yes: Normal Bowel Sounds, Soft Labs: CBC, BMP 11/16/16 05:35 INR, PTT INR 1.36 (0.82-1.09) H 11/15/16 07:25 Problem List - Problems (1) CHF (congestive heart failure) Assessment/Plan: IV LASIX MONITOR LYTES CT OF CHEST NOTED--F/U CXR ECHO ON ALDACTONE Code(s): I50.9 - HEART FAILURE, UNSPECIFIED Qualifiers: Congestive heart failure type: unspecified congestive heart failure type Congestive heart failure chronicity: unspecified congestive heart failure chronicity Qualified Code(s): I50.9 - Heart failure, unspecified (2) Supratherapeutic INR Assessment/Plan: HOLD COUMADIN--OFF ON HEPARIN Code(s): R79.1 - ABNORMAL COAGULATION PROFILE (3) Atrial fibrillation Assessment/Plan: OFF COUMADIN--ON HEPARIN TELE Code(s): I48.91 - UNSPECIFIED ATRIAL FIBRILLATION Qualifiers: Atrial fibrillation type: persistent Qualified Code(s): I48.1 - Persistent atrial fibrillation (4) Anemia Assessment/Plan: W/U ORDERED--FE/TIBC/FERRITIN/B12/OCCULT BLOOD Laboratory Tests 11/14/16 11/16/16 07:00 05:35 Hgb 10.2 L 10.3 L Code(s): D64.9 - ANEMIA, UNSPECIFIED Qualifiers: Anemia type: unspecified type Qualified Code(s): D64.9 - Anemia, unspecified (5) Renal insufficiency Assessment/Plan: MONITOR ON DIURETICS Laboratory Tests 11/14/16 11/15/16 07:00 07:25 Creatinine 1.7 H 1.6 H Code(s): N28.9 - DISORDER OF KIDNEY AND URETER, UNSPECIFIED (6) Hypokalemia Code(s): E87.6 - HYPOKALEMIA (7) Heart valve replaced Assessment/Plan: ECHO CARDIO ON BOARD Code(s): Z95.2 - PRESENCE OF PROSTHETIC HEART VALVE (8) Cellulitis Assessment/Plan: IV ABX CULTURES ID CONSULT Code(s): L03.90 - CELLULITIS, UNSPECIFIED (9) Pneumonia Assessment/Plan: CT SCAN NOTED--GROUND GLASS APPEARANCE IV BX ID AND PULM CONSULT Code(s): J18.9 - PNEUMONIA, UNSPECIFIED ORGANISM (10) Bacteremia Assessment/Plan: R/O VALVE INVOLVEMENT---ECHO CARDIO IV ABX PER ID Code(s): R78.81 - BACTEREMIA
[2016-11-16] MEDS: ALPRAZolam 0.25 MG TABLET PO PRN ×2 (08:57→18:22)
[2016-11-16] MEDS: POTASSIUM CHLORIDE TABS 20 MEQ TABLET.ER (FP) PO SCH ×2 (09:53→22:26)
[2016-11-16] MEDS: CEFTRIAXONE 50 ML IVPB SCH (09:53)
[2016-11-16] MEDS: SPIRONOLACTONE 25 MG TABLET (FP) PO SCH (09:53)
[2016-11-16] MEDS: AMIODARONE HCL 200 MG TABLET (FP) PO SCH (09:54)
[2016-11-16] MEDS: DOXYCYCLINE HYCLATE 100 MG CAPSULE PO SCH ×2 (09:55→18:08)
[2016-11-16 09:57] LABS: ALLENS TEST POSITIVE; ART PUNCT SITE LEFT RADIAL; ARTERIAL BLD GAS O2 SATURATION 98.7 % (90-98.9); ARTERIAL BLOOD GAS BASE EXCESS 2.4 meq/l (-2-2); ARTERIAL BLOOD GAS HCO3 25.2 meq/L (22-26); ARTERIAL BLOOD GAS PO2 99.1 mmHg (80-100); LPM/O2% 2L; PT. ON O2? YES; TYPE OF O2 NASAL
[2016-11-16 09:58] LABS: ARTERIAL BLOOD GAS pH 7.49 (7.35-7.45)
--- NOTE | 2016-11-16 10:48 | PN ---
Progress Note, Physician History of Present Illness: pulmonary alert,still dyspneic,-cp - Current Medication List Current Medications: Active Medications Acetaminophen (Tylenol -) 650 mg PO Q4H PRN PRN Reason: FEVER OR PAIN Last Admin: 11/13/16 13:16 Dose: 650 mg Alprazolam (Xanax -) 0.25 mg PO Q8H PRN PRN Reason: ANXIETY Last Admin: 11/16/16 08:57 Dose: 0.25 mg Amiodarone HCl (Cordarone -) 200 mg PO DAILY [facility] Last Admin: 11/16/16 09:54 Dose: 200 mg Doxycycline Hyclate (Vibramycin -) 100 mg PO BID@1000,1800 [facility] Last Admin: 11/16/16 09:55 Dose: 100 mg Furosemide (Lasix Injection -) 40 mg IVPUSH BID@0600,1400 [facility] Last Admin: 11/16/16 05:51 Dose: 40 mg Heparin Sodium (Porcine) (Heparin -) 1,000 unit IVPUSH PRN PRN PRN Reason: Heparin Last Admin: 11/16/16 09:52 Dose: 1,000 unit Heparin Sodium (Porcine) (Heparin -) 5,000 unit IVPUSH PRN PRN PRN Reason: Heparin Last Admin: 11/15/16 09:46 Dose: 5,000 unit Vancomycin HCl (Vancomycin (Pre-Docked)) 250 mls @ 200 mls/hr IVPB BID@0100, 1300 [facility] Last Admin: 11/16/16 00:42 Dose: 200 mls/hr Ceftriaxone Sodium (Rocephin 1gm Ivpb (Pre-Docked)) 50 mls @ 100 mls/hr IVPB DAILY [facility] Last Admin: 11/16/16 09:53 Dose: 100 mls/hr Gentamicin Sulfate 60 mg/ (Sodium Chloride) 101.5 mls @ 101.5 mls/hr IVPB Q12H [facility] Last Admin: 11/15/16 23:38 Dose: 101.5 mls/hr Heparin Sodium/Dextrose (Heparin Infusion -) 500 mls @ 20 mls/hr IVPB TITR SID ; 1,000 UNITS/HR PRN Reason: Protocol Last Titration: 11/16/16 09:51 Dose: 1,450 units/hr Potassium Chloride (K-Dur -) 20 meq PO BID [facility] Last Admin: 11/16/16 09:53 Dose: 20 meq Spironolactone (Aldactone -) 50 mg PO DAILY SID Last Admin: 11/16/16 09:53 Dose: 50 mg Zolpidem Tartrate (Ambien -) 10 mg PO HS PRN Last Admin: 11/16/16 00:09 Dose: 10 mg - Objective Vital Signs: Vital Signs Temperature 97.7 F 11/16/16 05:43 Pulse Rate 104 H 11/16/16 05:43 Respiratory Rate 21 11/16/16 05:43 Blood Pressure 104/54 11/16/16 05:43 O2 Sat by Pulse Oximetry (%) 98 11/15/16 20:49 Constitutional: Yes: Well Nourished, Calm Eyes: Yes: WNL HENT: Yes: WNL Neck: Yes: WNL Cardiovascular: Yes: Pulse Irregular, S1, S2 Respiratory: Yes: Rales (bibasilar rales) Gastrointestinal: Yes: Normal Bowel Sounds, Soft Extremities: Yes: WNL Edema: Yes Labs: CBC, BMP 11/16/16 05:35 11/16/16 05:35 INR, PTT INR 1.47 (0.82-1.09) H 11/16/16 05:35 Laboratory Tests 11/16/16 09:50 ABG pH 7.49 H ABG pCO2 at Pt Temp 33.2 L ABG pO2 at Pt Temp 99.1 ABG HCO3 25.2 ABG O2 Sat (Measured) 98.7 Oxygen Flow Rate 2l Assessment/Plan Problem List - Problems (1) Anemia Code(s): D64.9 - ANEMIA, UNSPECIFIED Qualifiers: Anemia type: unspecified type Qualified Code(s): D64.9 - Anemia, unspecified (2) Cellulitis Code(s): L03.90 - CELLULITIS, UNSPECIFIED (3) Heart valve replaced Code(s): Z95.2 - PRESENCE OF PROSTHETIC HEART VALVE (4) Pneumonia Code(s): J18.9 - PNEUMONIA, UNSPECIFIED ORGANISM (5) Supratherapeutic INR Code(s): R79.1 - ABNORMAL COAGULATION PROFILE (6) Atrial fibrillation Code(s): I48.91 - UNSPECIFIED ATRIAL FIBRILLATION Qualifiers: Atrial fibrillation type: persistent Qualified Code(s): I48.1 - Persistent atrial fibrillation (7) CHF (congestive heart failure) Code(s): I50.9 - HEART FAILURE, UNSPECIFIED Qualifiers: Congestive heart failure type: unspecified congestive heart failure type Congestive heart failure chronicity: unspecified congestive heart failure chronicity Qualified Code(s): I50.9 - Heart failure, unspecified (8) Bacteremia Code(s): R78.81 - BACTEREMIA Assessment/Plan ABX per ID O2 as needed BD TX AC for AFib CHEST X-RAY TODAY DR RODAS
[2016-11-16] MEDS: GENTAMICIN INJECTION 60 MG in SODIUM CHLORIDE 100 ML IVPB SCH (11:07)
--- NOTE | 2016-11-16 11:49 | PN ---
Progress Note (short form) - Note Progress Note: s: no cp palps dizzy; mild sob improving - Current Medication List Current Medications Generic Name Dose Route Start Last Admin Trade Name Freq PRN Reason Stop Dose Admin Acetaminophen 650 mg 11/13/16 12:29 11/13/16 13:16 Tylenol - PO 650 mg Q4H PRN Administration FEVER OR PAIN Albuterol/Ipratropium 1 amp 11/16/16 11:33 Duoneb - NEB Q4H PRN SHORTNESS OF BREATH Alprazolam 0.25 mg 11/15/16 18:27 11/16/16 08:57 Xanax - PO 0.25 mg Q8H PRN Administration ANXIETY Amiodarone HCl 200 mg 11/13/16 10:00 11/16/16 09:54 Cordarone - PO 200 mg DAILY SID Administration Doxycycline Hyclate 100 mg 11/13/16 18:00 11/16/16 09:55 Vibramycin - PO 100 mg BID@1000,1800 SID Administration Furosemide 40 mg 11/13/16 14:00 11/16/16 05:51 Lasix Injection - IVPUSH 40 mg BID@0600,1400 SID Administration Heparin Sodium (Porcine) 1,000 unit 11/14/16 11:57 11/16/16 09:52 Heparin - IVPUSH 1,000 unit PRN PRN Administration Heparin Heparin Sodium (Porcine) 5,000 unit 11/14/16 11:57 11/15/16 09:46 Heparin - IVPUSH 5,000 unit PRN PRN Administration Heparin Vancomycin HCl 250 mls @ 200 mls/hr 11/13/16 15:02 11/16/16 00:42 Vancomycin (Pre-Docked) IVPB 200 mls/hr BID@0100,1300 SID Administration Ceftriaxone Sodium 50 mls @ 100 mls/hr 11/14/16 11:30 11/16/16 09:53 Rocephin 1gm Ivpb (Pre-Docked) IVPB 100 mls/hr DAILY SID Administration Gentamicin Sulfate 60 mg/ 101.5 mls @ 101.5 mls/hr 11/14/16 12:00 11/16/16 11: 07 Sodium Chloride IVPB 101.5 mls/hr Q12H SID Administration Heparin Sodium/Dextrose 500 mls @ 20 mls/hr 11/14/16 12:00 11/16/16 09:51 Heparin Infusion - IVPB 1,450 units/hr TITR SID Titration Protocol 1,000 UNITS/HR Potassium Chloride 20 meq 11/13/16 10:00 11/16/16 09:53 K-Dur - PO 20 meq BID SID Administration Spironolactone 50 mg 11/13/16 10:00 11/16/16 09:53 Aldactone - PO 50 mg DAILY SID Administration Zolpidem Tartrate 10 mg 11/13/16 22:00 11/16/16 00:09 Ambien - PO 10 mg HS PRN Administration - Objective Vital Signs: Vital Signs Period Temp Pulse Resp BP Sys/Downs Pulse Ox Last 24 Hr 97.7 F-98.2 F 97-109 18- 96-137/54-67 98 nad no jvd rrr s1s2 no mrg ctabl nl eff aaox3 trace le edema bl no jaundice diaphoresis abd nt nd pos bs CBC, BMP 11/16/16 05:35 11/16/16 05:35 tele: sr Assessment/Plan 1)acute systolic CHF exacerbation -Elevated BNP 2378 -VIDA in 10/2015 showing mechancial MVR and bioprosthetic AVR, mildly reduced LVEF with global hypocontractility. -continue now with lasix 40mg IV BID -Continue Aldactone -check updated echo 2) Afib -Currently in SR on Amiodarone -cont AC per INR 3) Prior bio AVR, mechanical MVR -can resume coumadin with hep gtt bridging -check updated echo 4)pna, +bld cx: -on abx, ID following can dc tele
[2016-11-16] MEDS: ALBUTEROL SO4 2.5/IPRATROPIUM 0.5 INH SOL 3 ML VIAL.NEB. NEB PRN ×2 (12:11→20:09)
--- NOTE | 2016-11-16 15:35 | CONSULT ---
Consult Consult Specialty:: Nephrology Reason for Consultation:: STEVE - History of Present Illness Chief Complaint: initially presented with shortness of breath History of Present Illness: Pt is a 61 year old male with pmhx of a-fib, mechanical valve replacement, endocarditis, CHF, and COPD who initially presents with shortness of breath to the ER. He says that he was short of breath for about one week. He was found to have elevated creatinine. Pt denies history of kidney disease. He was given lasix for his CHF and his renal function has been improving. He feels that his breathing is improved today. He denies dysuria or hematuria. He denies nsaid use. - History Source History Provided By: Patient, Medical Record - Past Medical History Cardio/Vascular: Yes: AFIB, CHF, HTN, Hyperlipdemia, Other (AVR/MVR) Pulmonary: Yes: COPD Renal/: Yes: Renal Inusuff Infectious Disease: Yes: Other (H/O ENDOCARDITIS) - Past Surgical History Past Surgical History: Yes: Valve Replacement - Alcohol/Substance Use Hx Alcohol Use: No - Smoking History Smoking history: Former smoker Have you smoked in the past 12 months: No If you are a former smoker, when did you quit?: 5 YRS Home Medications - Allergies Allergies/Adverse Reactions: Allergies Allergy/AdvReac Type Severity Reaction Status Date / Time No Known Allergies Allergy Verified 11/12/16 16:12 - Home Medications Home Medications: Ambulatory Orders Metolazone [Zaroxolyn] 2.5 mg PO ASDIR PRN 06/21/15 Metoprolol Succinate [Toprol XL -] 50 mg PO BID 06/21/15 Simvastatin [Zocor -] 20 mg PO HS 06/21/15 Warfarin Sodium [Coumadin] 5 mg PO HS 06/21/15 Amiodarone HCl [Cordarone -] 200 mg PO DAILY 10/29/15 Furosemide [Lasix -] 80 mg PO BID 11/28/15 Potassium Chloride [K-Dur -] 20 meq PO DAILY 11/28/15 Spironolactone 50 mg PO DAILY #30 tablet 11/28/15 Zolpidem Tartrate [Ambien] 10 mg PO HS 11/28/15 Family Disease History - Family Disease History Family Disease History: Diabetes: Father (Throat cancer), Other: Father, Mother (Breast and lung cancer) Review of Systems - Review of Systems Constitutional: reports: Malaise Eyes: reports: No Symptoms HENT: reports: No Symptoms Neck: reports: No Symptoms Cardiovascular: reports: Edema, Palpitations, Shortness of Breath Respiratory: reports: SOB, SOB on Exertion Gastrointestinal: reports: No Symptoms Genitourinary: reports: No Symptoms Musculoskeletal: reports: No Symptoms Endocrine: reports: No Symptoms Hematology/Lymphatic: reports: No Symptoms Psychiatric: reports: No Symptoms Physical Exam Vital Signs: Vital Signs Temperature 97.5 F L 11/16/16 14:00 Pulse Rate 101 H 11/16/16 14:00 Respiratory Rate 20 11/16/16 14:00 Blood Pressure 96/56 11/16/16 08:00 O2 Sat by Pulse Oximetry (%) 96 11/16/16 09:09 Constitutional: Yes: Calm Eyes: Yes: Conjunctiva Clear HENT: Yes: Atraumatic Cardiovascular: Yes: Murmur, S1, S2 Respiratory: Yes: Regular Gastrointestinal: Yes: Soft Renal/: Yes: WNL Edema: Yes Neurological: Yes: Oriented Psychiatric: Yes: Oriented Labs: CBC, BMP 11/16/16 05:35 11/16/16 05:35 Laboratory Tests 11/12/16 11/12/16 11/13/16 19:48 20:29 08:05 WBC RBC Hgb Sodium Potassium Chloride Carbon Dioxide Anion Gap BUN Creatinine 1.9 H D 1.8 H Urine Color Yellow Urine Appearance Clear Urine pH 5.0 Ur Specific [place] 1.010 Urine Protein Negative Urine Glucose (UA) Negative Urine Ketones Negative Urine Blood Negative Urine Nitrite Negative Urine Bilirubin Negative Urine Urobilinogen 2.0 Ur Leukocyte Esterase Negative 11/14/16 11/15/16 11/16/16 07:00 07:25 05:35 WBC 16.0 H RBC 3.58 L Hgb 10.3 L Sodium Potassium Chloride Carbon Dioxide Anion Gap BUN Creatinine 1.7 H 1.6 H Urine Color Urine Appearance Urine pH Ur Specific [place] Urine Protein Urine Glucose (UA) Urine Ketones Urine Blood Urine Nitrite Urine Bilirubin Urine Urobilinogen Ur Leukocyte Esterase 11/16/16 05:35 WBC RBC Hgb Sodium 133 L Potassium 3.6 Chloride 95 L Carbon Dioxide 26 Anion Gap 12 BUN 42 H Creatinine 1.4 H Urine Color Urine Appearance Urine pH Ur Specific [place] Urine Protein Urine Glucose (UA) Urine Ketones Urine Blood Urine Nitrite Urine Bilirubin Urine Urobilinogen Ur Leukocyte Esterase Imaging - Results Chest X-ray: Report Reviewed Problem List - Problems (1) Cellulitis Code(s): L03.90 - CELLULITIS, UNSPECIFIED (2) Heart valve replaced Code(s): Z95.2 - PRESENCE OF PROSTHETIC HEART VALVE (3) Atrial fibrillation Code(s): I48.91 - UNSPECIFIED ATRIAL FIBRILLATION Qualifiers: Atrial fibrillation type: persistent Qualified Code(s): I48.1 - Persistent atrial fibrillation (4) CHF (congestive heart failure) Code(s): I50.9 - HEART FAILURE, UNSPECIFIED Qualifiers: Congestive heart failure type: unspecified congestive heart failure type Congestive heart failure chronicity: unspecified congestive heart failure chronicity Qualified Code(s): I50.9 - Heart failure, unspecified (5) STEVE (acute kidney injury) Code(s): N17.9 - ACUTE KIDNEY FAILURE, UNSPECIFIED Assessment/Plan Current Medications Generic Name Dose Route Start Last Admin Trade Name Freq PRN Reason Stop Dose Admin Acetaminophen 650 mg 11/13/16 12:29 11/13/16 13:16 Tylenol - PO 650 mg Q4H PRN Administration FEVER OR PAIN Albuterol/Ipratropium 1 amp 11/16/16 11:33 11/16/16 12:11 Duoneb - NEB 1 amp Q4H PRN Administration SHORTNESS OF BREATH Alprazolam 0.25 mg 11/15/16 18:27 11/16/16 08:57 Xanax - PO 0.25 mg Q8H PRN Administration ANXIETY Amiodarone HCl 200 mg 11/13/16 10:00 11/16/16 09:54 Cordarone - PO 200 mg DAILY SID Administration Doxycycline Hyclate 100 mg 11/13/16 18:00 11/16/16 09:55 Vibramycin - PO 100 mg BID@1000,1800 SID Administration Furosemide 40 mg 11/13/16 14:00 11/16/16 14:59 Lasix Injection - IVPUSH 40 mg BID@0600,1400 SID Administration Heparin Sodium (Porcine) 1,000 unit 11/14/16 11:57 11/16/16 09:52 Heparin - IVPUSH 1,000 unit PRN PRN Administration Heparin Heparin Sodium (Porcine) 5,000 unit 11/14/16 11:57 11/15/16 09:46 Heparin - IVPUSH 5,000 unit PRN PRN Administration Heparin Vancomycin HCl 250 mls @ 200 mls/hr 11/13/16 15:02 11/16/16 12:23 Vancomycin (Pre-Docked) IVPB 200 mls/hr BID@0100,1300 SID Administration Ceftriaxone Sodium 50 mls @ 100 mls/hr 11/14/16 11:30 11/16/16 09:53 Rocephin 1gm Ivpb (Pre-Docked) IVPB 100 mls/hr DAILY SID Administration Gentamicin Sulfate 60 mg/ 101.5 mls @ 101.5 mls/hr 11/14/16 12:00 11/16/16 11: 07 Sodium Chloride IVPB 101.5 mls/hr Q12H SID Administration Heparin Sodium/Dextrose 500 mls @ 20 mls/hr 11/14/16 12:00 11/16/16 12:15 Heparin Infusion - IVPB Not Given TITR SID Protocol 1,000 UNITS/HR Potassium Chloride 20 meq 11/13/16 10:00 11/16/16 09:53 K-Dur - PO 20 meq BID SID Administration Spironolactone 50 mg 11/13/16 10:00 11/16/16 09:53 Aldactone - PO 50 mg DAILY SID Administration Zolpidem Tartrate 10 mg 11/13/16 22:00 11/16/16 00:09 Ambien - PO 10 mg HS PRN Administration Impression 1. STEVE improving 2. CHF 3. valvular heart disease 4. cellulitis 5. a-fib 6. COPD 7. hyponatremia Plan - renal function is improving - cont with diuretics for now - monitor abx levels - repeat labs in am - initial ua was negative for blood or protein - check ultrasound kidneys and bladder - will follow Dr Son
[2016-11-16] MEDS ORDERED: CEFTRIAXONE 50 ML IVPB ONE (15:42)
--- NOTE | 2016-11-16 15:49 | PN ---
Progress Note, Physician History of Present Illness: Awake,alert No c/o chest pain/ dyspnea No fever/ chills No leg pain Blood c/s Viridans sp. - Current Medication List Current Medications: Active Medications Acetaminophen (Tylenol -) 650 mg PO Q4H PRN PRN Reason: FEVER OR PAIN Last Admin: 11/13/16 13:16 Dose: 650 mg Albuterol/Ipratropium (Duoneb -) 1 amp NEB Q4H PRN PRN Reason: SHORTNESS OF BREATH Last Admin: 11/16/16 12:11 Dose: 1 amp Alprazolam (Xanax -) 0.25 mg PO Q8H PRN PRN Reason: ANXIETY Last Admin: 11/16/16 08:57 Dose: 0.25 mg Amiodarone HCl (Cordarone -) 200 mg PO DAILY [facility] Last Admin: 11/16/16 09:54 Dose: 200 mg Doxycycline Hyclate (Vibramycin -) 100 mg PO BID@1000,1800 [facility] Last Admin: 11/16/16 09:55 Dose: 100 mg Furosemide (Lasix Injection -) 40 mg IVPUSH BID@0600,1400 [facility] Last Admin: 11/16/16 14:59 Dose: 40 mg Heparin Sodium (Porcine) (Heparin -) 1,000 unit IVPUSH PRN PRN PRN Reason: Heparin Last Admin: 11/16/16 09:52 Dose: 1,000 unit Heparin Sodium (Porcine) (Heparin -) 5,000 unit IVPUSH PRN PRN PRN Reason: Heparin Last Admin: 11/15/16 09:46 Dose: 5,000 unit Heparin Sodium/Dextrose (Heparin Infusion -) 500 mls @ 20 mls/hr IVPB TITR [facility] ; 1,000 UNITS/HR PRN Reason: Protocol Last Admin: 11/16/16 12:15 Dose: Not Given Ceftriaxone Sodium 1 gm/ (Dextrose) 100 mls @ 200 mls/hr IVPB ONCE ONE Stop: 11/16/16 16:11 Ceftriaxone Sodium 2 gm/ (Dextrose) 100 mls @ 200 mls/hr IVPB DAILY [facility] Potassium Chloride (K-Dur -) 20 meq PO BID [facility] Last Admin: 11/16/16 09:53 Dose: 20 meq Spironolactone (Aldactone -) 50 mg PO DAILY [facility] Last Admin: 11/16/16 09:53 Dose: 50 mg Zolpidem Tartrate (Ambien -) 10 mg PO HS PRN Last Admin: 11/16/16 00:09 Dose: 10 mg - Objective Vital Signs: Vital Signs Temperature 97.5 F L 11/16/16 14:00 Pulse Rate 101 H 11/16/16 14:00 Respiratory Rate 20 11/16/16 14:00 Blood Pressure 96/56 11/16/16 08:00 O2 Sat by Pulse Oximetry (%) 96 11/16/16 09:09 Constitutional: Yes: No Distress, Thin Eyes: Yes: Conjunctiva Clear Cardiovascular: Yes: Regular Rate and Rhythm, Murmur, S1, S2 Respiratory: Yes: Other (+ crepitations at bases) Gastrointestinal: Yes: Normal Bowel Sounds, Soft. No: Tenderness Extremities: Yes: Other (decreased erythema/ warmth R LE + exfoliation) Edema: Yes Labs: CBC, BMP 11/16/16 05:35 11/16/16 05:35 INR, PTT INR 1.47 (0.82-1.09) H 11/16/16 05:35 Assessment/Plan Cellulitis R LE Viridans strep bacteremia Possible PVE Possible pneumonia Discontinue vancomycin Ceftriaxone 2gm IVPB daily + gentamicin synergy Echo Sputum c/s, legionella ag
[2016-11-16] MEDS ORDERED: METOPROLOL TARTRATE 25 MG TABLET (FP) PO ONE (23:15)
[2016-11-17] MEDS: ALBUTEROL SO4 2.5/IPRATROPIUM 0.5 INH SOL 3 ML VIAL.NEB. NEB PRN ×2 (00:01→06:40)
[2016-11-17] MEDS: ZOLPIDEM TARTRATE 5 MG TABLET PO PRN ×2 (01:13→22:59)
[2016-11-17] MEDS: HEPARIN NA (PORCINE) 5,000 UNITS/ML 1ML VIAL IVPUSH PRN ×2 (01:18→10:42)
[2016-11-17] MEDS: FUROSEMIDE 40 MG/4 ML INJECTABLE VIAL IVPUSH SCH ×2 (07:04→18:59)
--- NOTE | 2016-11-17 07:56 | DS ---
Physical Examination Vital Signs: Vital Signs Temperature 97.6 F 11/17/16 06:00 Pulse Rate 84 11/17/16 06:00 Respiratory Rate 20 11/17/16 06:00 Blood Pressure 112/65 11/17/16 06:00 O2 Sat by Pulse Oximetry (%) 98 11/16/16 21:00 Labs: CBC, BMP 11/16/16 05:35 11/16/16 05:35 Discharge Summary Reason For Visit: ANEMIA SUPRATHERAPEUTIC INR RENAL INSUFFICIENCY Current Active Problems STEVE (acute kidney injury) (Acute) Anemia (Acute) Anxiety about health (Acute) Bacteremia (Acute) Cellulitis (Acute) Heart valve replaced (Acute) Pneumonia (Acute) Rectal bleed (Acute) Renal insufficiency (Acute) Supratherapeutic INR (Acute) Condition: Guarded - Instructions Referrals: Luigi Joshi MD [Primary Care Provider] - - Home Medications Comprehensive Discharge Medication List: Ambulatory Orders Metolazone [Zaroxolyn] 2.5 mg PO ASDIR PRN 06/21/15 Metoprolol Succinate [Toprol XL -] 50 mg PO BID 06/21/15 Simvastatin [Zocor -] 20 mg PO HS 06/21/15 Warfarin Sodium [Coumadin] 5 mg PO HS 06/21/15 Amiodarone HCl [Cordarone -] 200 mg PO DAILY 10/29/15 Furosemide [Lasix -] 80 mg PO BID 11/28/15 Potassium Chloride [K-Dur -] 20 meq PO DAILY 11/28/15 Spironolactone 50 mg PO DAILY #30 tablet 11/28/15 Zolpidem Tartrate [Ambien] 10 mg PO HS 11/28/15
--- NOTE | 2016-11-17 07:56 | PN ---
Progress Note, Physician History of Present Illness: no cp c/o sob - Current Medication List Current Medications: Active Medications Acetaminophen (Tylenol -) 650 mg PO Q4H PRN PRN Reason: FEVER OR PAIN Last Admin: 11/13/16 13:16 Dose: 650 mg Albuterol/Ipratropium (Duoneb -) 1 amp NEB Q4H PRN PRN Reason: SHORTNESS OF BREATH Last Admin: 11/17/16 06:40 Dose: 1 amp Alprazolam (Xanax -) 0.25 mg PO Q8H PRN PRN Reason: ANXIETY Last Admin: 11/16/16 18:22 Dose: 0.25 mg Amiodarone HCl (Cordarone -) 200 mg PO DAILY [facility] [place] Last Admin: 11/16/16 09:54 Dose: 200 mg Doxycycline Hyclate (Vibramycin -) 100 mg PO BID@1000,1800 [facility] Last Admin: 11/16/16 18:08 Dose: 100 mg Furosemide (Lasix Injection -) 40 mg IVPUSH BID@0600,1400 [facility] Last Admin: 11/17/16 07:04 Dose: 40 mg Heparin Sodium (Porcine) (Heparin -) 1,000 unit IVPUSH PRN PRN PRN Reason: Heparin Last Admin: 11/17/16 01:18 Dose: 1,000 unit Heparin Sodium (Porcine) (Heparin -) 5,000 unit IVPUSH PRN PRN PRN Reason: Heparin Last Admin: 11/15/16 09:46 Dose: 5,000 unit Heparin Sodium/Dextrose (Heparin Infusion -) 500 mls @ 20 mls/hr IVPB TITR SID ; 1,000 UNITS/HR PRN Reason: Protocol Last Titration: 11/17/16 01:13 Dose: 1,650 units/hr Ceftriaxone Sodium (Rocephin 2gm Ivpb (Pre-Docked)) 100 mls @ 200 mls/hr IVPB DAILY [facility] [place] Gentamicin Sulfate 90 mg/ (Sodium Chloride) 102.25 mls @ 100 mls/hr IVPB DAILY [facility] Potassium Chloride (K-Dur -) 20 meq PO BID [facility] Last Admin: 11/16/16 22:26 Dose: 20 meq Spironolactone (Aldactone -) 50 mg PO DAILY [facility] [place] Last Admin: 11/16/16 09:53 Dose: 50 mg Zolpidem Tartrate (Ambien -) 10 mg PO HS PRN Last Admin: 11/17/16 01:13 Dose: 10 mg - Objective Vital Signs: Vital Signs Temperature 97.6 F 11/17/16 06:00 Pulse Rate 84 11/17/16 06:00 Respiratory Rate 20 11/17/16 06:00 Blood Pressure 112/65 11/17/16 06:00 O2 Sat by Pulse Oximetry (%) 98 11/16/16 21:00 Cardiovascular: Yes: S1, S2 Respiratory: Yes: Diminished, Rales Gastrointestinal: Yes: Normal Bowel Sounds, Soft Edema: Yes Labs: CBC, BMP 11/16/16 05:35 11/16/16 05:35 INR, PTT INR 1.47 (0.82-1.09) H 11/16/16 05:35 Problem List - Problems (1) CHF (congestive heart failure) Assessment/Plan: IV LASIX--INCREASE TO [address] OF CHEST NOTED--F/U CXR ECHO ON ALDACTONE Code(s): I50.9 - HEART FAILURE, UNSPECIFIED Qualifiers: Congestive heart failure type: unspecified congestive heart failure type Congestive heart failure chronicity: unspecified congestive heart failure chronicity Qualified Code(s): I50.9 - Heart failure, unspecified (2) Supratherapeutic INR Assessment/Plan: HOLD COUMADIN--OFF--RESUME 5 MG ON HEPARIN Code(s): R79.1 - ABNORMAL COAGULATION PROFILE (3) Atrial fibrillation Assessment/Plan: OFF COUMADIN--ON HEPARIN--RESUME COUMADIN OFF TELE Code(s): I48.91 - UNSPECIFIED ATRIAL FIBRILLATION Qualifiers: Atrial fibrillation type: persistent Qualified Code(s): I48.1 - Persistent atrial fibrillation (4) Anemia Assessment/Plan: W/U ORDERED--FE/TIBC/FERRITIN/B12/OCCULT BLOOD Laboratory Tests 11/14/16 11/16/16 07:00 05:35 Hgb 10.2 L 10.3 L Code(s): D64.9 - ANEMIA, UNSPECIFIED Qualifiers: Anemia type: unspecified type Qualified Code(s): D64.9 - Anemia, unspecified (5) Renal insufficiency Assessment/Plan: MONITOR ON DIURETICS Laboratory Tests 11/14/16 11/15/16 07:00 07:25 Creatinine 1.7 H 1.6 H Code(s): N28.9 - DISORDER OF KIDNEY AND URETER, UNSPECIFIED (6) Hypokalemia Code(s): E87.6 - HYPOKALEMIA (7) Heart valve replaced Assessment/Plan: ECHO-- NOTED--FOR VIDA CARDIO ON BOARD Code(s): Z95.2 - PRESENCE OF PROSTHETIC HEART VALVE (8) Cellulitis Assessment/Plan: IV ABX CULTURES ID CONSULT Code(s): L03.90 - CELLULITIS, UNSPECIFIED (9) Pneumonia Assessment/Plan: CT SCAN NOTED--GROUND GLASS APPEARANCE IV BX ID AND PULM CONSULT Code(s): J18.9 - PNEUMONIA, UNSPECIFIED ORGANISM (10) Bacteremia Assessment/Plan: R/O VALVE INVOLVEMENT---ECHO CARDIO--VIDA IV ABX PER ID Microbiology 11/15/16 07:30 Blood - Peripheral Venous Blood Culture - Preliminary NO GROWTH OBTAINED AFTER 48 HOURS, INCUBATION TO CONTINUE FOR 3 DAYS. 11/15/16 07:15 Blood - Peripheral Venous Blood Culture - Preliminary NO GROWTH OBTAINED AFTER 48 HOURS, INCUBATION TO CONTINUE FOR 3 DAYS. 11/12/16 23:49 Blood - Peripheral Venous Blood Culture - Final Viridans Streptococcus Group 11/12/16 23:49 Blood - Peripheral Venous Blood Culture - Final Viridans Streptococcus Group 11/14/16 15:00 Urine For Antigen Detection Legionella Antigen - Final 11/14/16 15:00 Urine For Antigen Detection Streptococcus pneumoniae Antigen (M - Final 11/12/16 20:29 Urine - Urine Clean Catch Urine Culture - Final NO GROWTH OBTAINED Code(s): R78.81 - BACTEREMIA
[2016-11-17] MEDS ORDERED: FUROSEMIDE 40 MG/4 ML INJECTABLE VIAL IVPUSH SCH (07:58)
[2016-11-17 08:11] LABS: MCHC 33.9 g/dl (32.0-35.9); MEAN CELL VOLUME 85.3 fl (80-96); MEAN PLT VOLUME 8.2 fl (7.5-11.1); PLATELET COUNT 164 K/MM3 (134-434); RDW 17.4 % (11.9-15.9); WHITE BLOOD COUNT 14.6 K/mm3 (4.0-10.0)
[2016-11-17] MEDS: HEPARIN INFUSION - 500 ML IVPB SCH ×4 (08:11→17:11)
[2016-11-17 08:31] LABS: INR 1.45 (0.82-1.09); PROTHROMBIN TIME (PATIENT) 16.1 SEC (9.98-11.88)
[2016-11-17 08:57] LABS: ANION GAP 10 (8-16); CALCIUM 9.7 mg/dL (8.5-10.1); CO2 29 mmol/L (21-32); CREATININE 1.7 mg/dL (0.7-1.3); GLUCOSE,RANDOM 127 mg/dL (74-106)
[2016-11-17 09:04] LABS: THYROID STIMULATING HORMONE 0.94 uIU/ml (0.358-3.74)
[2016-11-17] MEDS: SPIRONOLACTONE 25 MG TABLET (FP) PO SCH (10:41)
[2016-11-17] MEDS: POTASSIUM CHLORIDE TABS 20 MEQ TABLET.ER (FP) PO SCH ×2 (10:42→22:59)
[2016-11-17] MEDS: AMIODARONE HCL 200 MG TABLET (FP) PO SCH (10:42)
[2016-11-17] MEDS: DOXYCYCLINE HYCLATE 100 MG CAPSULE PO SCH ×2 (10:43→17:44)
[2016-11-17] MEDS: CEFTRIAXONE 100 ML IVPB SCH (10:43)
[2016-11-17] MEDS: GENTAMICIN INJECTION 90 MG in SODIUM CHLORIDE 100 ML IVPB SCH (10:44)
[2016-11-17 11:53] LABS: URINE APPEARANCE CLEAR; URINE BILIRUBIN NEGATIVE (NEGATIVE); URINE BLOOD NEGATIVE (NEGATIVE); URINE COLOR YELLOW; URINE GLUCOSE (UA) NEGATIVE (NEGATIVE); URINE KETONE NEGATIVE (NEGATIVE); URINE LEUK ESTERASE NEGATIVE (NEGATIVE); URINE NITRITE NEGATIVE (NEGATIVE); URINE PROTEIN NEGATIVE (NEGATIVE); URINE UROBILINOGEN NEGATIVE mg/dL (0.2-1.0)
--- NOTE | 2016-11-17 12:00 | PN ---
Progress Note (short form) - Note Progress Note: s: no cp palps dizzy; sob improving - Current Medication List Current Medications Generic Name Dose Route Start Last Admin Trade Name Freq PRN Reason Stop Dose Admin Acetaminophen 650 mg 11/13/16 12:29 11/13/16 13:16 Tylenol - PO 650 mg Q4H PRN Administration FEVER OR PAIN Albuterol/Ipratropium 1 amp 11/16/16 11:33 11/17/16 06:40 Duoneb - NEB 1 amp Q4H PRN Administration SHORTNESS OF BREATH Alprazolam 0.25 mg 11/15/16 18:27 11/16/16 18:22 Xanax - PO 0.25 mg Q8H PRN Administration ANXIETY Amiodarone HCl 200 mg 11/13/16 10:00 11/17/16 10:42 Cordarone - PO 200 mg DAILY SID Administration Doxycycline Hyclate 100 mg 11/13/16 18:00 11/17/16 10:43 Vibramycin - PO 100 mg BID@1000,1800 SID Administration Furosemide 80 mg 11/17/16 07:58 Lasix Injection - IVPUSH BID@0600,1400 SID Heparin Sodium (Porcine) 1,000 unit 11/14/16 11:57 11/17/16 10:42 Heparin - IVPUSH 1,000 unit PRN PRN Administration Heparin Heparin Sodium (Porcine) 5,000 unit 11/14/16 11:57 11/15/16 09:46 Heparin - IVPUSH 5,000 unit PRN PRN Administration Heparin Heparin Sodium/Dextrose 500 mls @ 20 mls/hr 11/14/16 12:00 11/17/16 10:46 Heparin Infusion - IVPB 35 mls/hr TITR SID Administration Protocol 1,000 UNITS/HR Ceftriaxone Sodium 100 mls @ 200 mls/hr 11/17/16 10:00 11/17/16 10:43 Rocephin 2gm Ivpb (Pre-Docked) IVPB 200 mls/hr DAILY SID Administration Gentamicin Sulfate 90 mg/ 102.25 mls @ 100 mls/hr 11/17/16 10:00 11/17/16 10:44 Sodium Chloride IVPB 100 mls/hr DAILY SID Administration Potassium Chloride 20 meq 11/13/16 10:00 11/17/16 10:42 K-Dur - PO 20 meq BID SID Administration Spironolactone 50 mg 11/13/16 10:00 11/17/16 10:41 Aldactone - PO 50 mg DAILY SID Administration Warfarin Sodium 5 mg 11/17/16 18:00 Coumadin - PO DAILY@1800 SID Zolpidem Tartrate 10 mg 11/16/16 23:00 11/17/16 01:13 Ambien - PO 10 mg HS PRN Administration - Objective Vital Signs: Vital Signs Period Temp Pulse Resp BP Sys/Downs Pulse Ox Last 24 Hr 97.3 F-98 F 84-112 20-20 100-112/47-65 96-98 nad no jvd rrr s1s2 no mrg ctabl nl eff aaox3 trace le edema bl no jaundice diaphoresis abd nt nd pos bs CBC, BMP 11/17/16 06:40 11/17/16 06:40 tele: sr echo 10/2016: nl lvef, rv mod dilated, mild-mod dec rv syst fcn, mod joanne,trace mr, trace ar, sev phtn VIDA in 10/2015 showing mechancial MVR and bioprosthetic AVR, mildly reduced LVEF with global hypocontractility Assessment/Plan 1)acute systolic/diastolic CHF exacerbation -Elevated BNP 2378 -sob improving -continue with lasix 40mg IV BID, if cr continues to rise tomorrow will change to po -Continue Aldactone 2) Afib -Currently in SR on Amiodarone -cont AC per INR 3) Prior bio AVR, mechanical MVR -on coumadin with hep gtt bridging -normal fcn on echo here 4)pna, +bld cx: -on abx, ID following -given positive bld cxs and hx of MVR/AVR, ID is concerned for possible endocarditis. Will plan for VIDA tomorrow afternoon to r/o endocarditis.
--- NOTE | 2016-11-17 12:21 | PN ---
Progress Note (short form) - Note Progress Note: PULMONARY CHART REVIEWED/ PATIENT EXAMINED UPSET OVER INR LEVEL REMAINS ON HEPARIN SCHEDULED FOR HEATHER Cellulitis R LE Viridans strep bacteremia Possible Prosthetic valve endo Possible pneumonia Ceftriaxone 2gm IVPB daily + gentamicin synergy heather pending anticoagulation bronchodilators Carrington CLINTON MD
--- NOTE | 2016-11-17 12:45 | PN ---
Progress Note, Physician History of Present Illness: Pt seen and examined at bedside. He is awake and alert. He still complains of shortness of breath. He feels his lower extremity edema is improving. - Current Medication List Current Medications: Active Medications Acetaminophen (Tylenol -) 650 mg PO Q4H PRN PRN Reason: FEVER OR PAIN Last Admin: 11/13/16 13:16 Dose: 650 mg Albuterol/Ipratropium (Duoneb -) 1 amp NEB Q4H PRN PRN Reason: SHORTNESS OF BREATH Last Admin: 11/17/16 06:40 Dose: 1 amp Alprazolam (Xanax -) 0.25 mg PO Q8H PRN PRN Reason: ANXIETY Last Admin: 11/16/16 18:22 Dose: 0.25 mg Amiodarone HCl (Cordarone -) 200 mg PO DAILY [facility] Last Admin: 11/17/16 10:42 Dose: 200 mg Doxycycline Hyclate (Vibramycin -) 100 mg PO BID@1000,1800 [facility] Last Admin: 11/17/16 10:43 Dose: 100 mg Furosemide (Lasix Injection -) 80 mg IVPUSH BID@0600,1400 [facility] Heparin Sodium (Porcine) (Heparin -) 1,000 unit IVPUSH PRN PRN PRN Reason: Heparin Last Admin: 11/17/16 10:42 Dose: 1,000 unit Heparin Sodium (Porcine) (Heparin -) 5,000 unit IVPUSH PRN PRN PRN Reason: Heparin Last Admin: 11/15/16 09:46 Dose: 5,000 unit Heparin Sodium/Dextrose (Heparin Infusion -) 500 mls @ 20 mls/hr IVPB TITR SID ; 1,000 UNITS/HR PRN Reason: Protocol Last Admin: 11/17/16 10:46 Dose: 35 mls/hr Ceftriaxone Sodium (Rocephin 2gm Ivpb (Pre-Docked)) 100 mls @ 200 mls/hr IVPB DAILY [facility] Last Admin: 11/17/16 10:43 Dose: 200 mls/hr Gentamicin Sulfate 90 mg/ (Sodium Chloride) 102.25 mls @ 100 mls/hr IVPB DAILY [facility] Last Admin: 11/17/16 10:44 Dose: 100 mls/hr Potassium Chloride (K-Dur -) 20 meq PO BID [facility] Last Admin: 11/17/16 10:42 Dose: 20 meq Spironolactone (Aldactone -) 50 mg PO DAILY [facility] Last Admin: 11/17/16 10:41 Dose: 50 mg Warfarin Sodium (Coumadin -) 5 mg PO DAILY@1800 [facility] Zolpidem Tartrate (Ambien -) 10 mg PO HS PRN Last Admin: 11/17/16 01:13 Dose: 10 mg - Objective Vital Signs: Vital Signs Temperature 98 F 11/17/16 10:00 Pulse Rate 100 H 11/17/16 10:00 Respiratory Rate 20 11/17/16 10:00 Blood Pressure 100/60 11/17/16 10:00 O2 Sat by Pulse Oximetry (%) 98 11/16/16 21:00 Constitutional: Yes: Calm Eyes: Yes: Conjunctiva Clear HENT: Yes: Atraumatic Neck: Yes: Supple Cardiovascular: Yes: Murmur, S1, S2 Respiratory: Yes: On Nasal O2 Genitourinary: Yes: WNL Musculoskeletal: Yes: WNL Edema: Yes Edema: LLE: Trace, RLE: Trace Wound/Incision: Yes: Dressing Dry and Intact Neurological: Yes: Oriented Psychiatric: Yes: Oriented Labs: CBC, BMP 11/17/16 06:40 11/17/16 06:40 INR, PTT INR 1.45 (0.82-1.09) H 11/17/16 06:40 Problem List - Problems (1) Cellulitis Code(s): L03.90 - CELLULITIS, UNSPECIFIED (2) Heart valve replaced Code(s): Z95.2 - PRESENCE OF PROSTHETIC HEART VALVE (3) Atrial fibrillation Code(s): I48.91 - UNSPECIFIED ATRIAL FIBRILLATION Qualifiers: Atrial fibrillation type: persistent Qualified Code(s): I48.1 - Persistent atrial fibrillation (4) CHF (congestive heart failure) Code(s): I50.9 - HEART FAILURE, UNSPECIFIED Qualifiers: Congestive heart failure type: unspecified congestive heart failure type Congestive heart failure chronicity: unspecified congestive heart failure chronicity Qualified Code(s): I50.9 - Heart failure, unspecified (5) STEVE (acute kidney injury) Code(s): N17.9 - ACUTE KIDNEY FAILURE, UNSPECIFIED Assessment/Plan Current Medications Generic Name Dose Route Start Last Admin Trade Name Freq PRN Reason Stop Dose Admin Acetaminophen 650 mg 11/13/16 12:29 11/13/16 13:16 Tylenol - PO 650 mg Q4H PRN Administration FEVER OR PAIN Albuterol/Ipratropium 1 amp 11/16/16 11:33 11/17/16 06:40 Duoneb - NEB 1 amp Q4H PRN Administration SHORTNESS OF BREATH Alprazolam 0.25 mg 11/15/16 18:27 11/16/16 18:22 Xanax - PO 0.25 mg Q8H PRN Administration ANXIETY Amiodarone HCl 200 mg 11/13/16 10:00 11/17/16 10:42 Cordarone - PO 200 mg DAILY SID Administration Doxycycline Hyclate 100 mg 11/13/16 18:00 11/17/16 10:43 Vibramycin - PO 100 mg BID@1000,1800 SID Administration Furosemide 80 mg 11/17/16 07:58 Lasix Injection - IVPUSH BID@0600,1400 SID Heparin Sodium (Porcine) 1,000 unit 11/14/16 11:57 11/17/16 10:42 Heparin - IVPUSH 1,000 unit PRN PRN Administration Heparin Heparin Sodium (Porcine) 5,000 unit 11/14/16 11:57 11/15/16 09:46 Heparin - IVPUSH 5,000 unit PRN PRN Administration Heparin Heparin Sodium/Dextrose 500 mls @ 20 mls/hr 11/14/16 12:00 11/17/16 10:46 Heparin Infusion - IVPB 35 mls/hr TITR SID Administration Protocol 1,000 UNITS/HR Ceftriaxone Sodium 100 mls @ 200 mls/hr 11/17/16 10:00 11/17/16 10:43 Rocephin 2gm Ivpb (Pre-Docked) IVPB 200 mls/hr DAILY SID Administration Gentamicin Sulfate 90 mg/ 102.25 mls @ 100 mls/hr 11/17/16 10:00 11/17/16 10:44 Sodium Chloride IVPB 100 mls/hr DAILY SID Administration Potassium Chloride 20 meq 11/13/16 10:00 11/17/16 10:42 K-Dur - PO 20 meq BID SID Administration Spironolactone 50 mg 11/13/16 10:00 11/17/16 10:41 Aldactone - PO 50 mg DAILY SID Administration Warfarin Sodium 5 mg 11/17/16 18:00 Coumadin - PO DAILY@1800 [facility] Zolpidem Tartrate 10 mg 11/16/16 23:00 11/17/16 01:13 Ambien - PO 10 mg HS PRN Administration Laboratory Tests 11/15/16 11/16/16 11/16/16 07:25 16:23 16:23 Serum Osmolality TSH PTH Intact Pending Cortisol AM Sample Urine Protein Urine Blood Urine Osmolality 327 Ur Random Sodium 66 11/17/16 11/17/16 11/17/16 06:40 06:40 07:00 Serum Osmolality 291 TSH 0.94 PTH Intact Cortisol AM Sample Pending Urine Protein Urine Blood Urine Osmolality Ur Random Sodium 11/17/16 11:00 Serum Osmolality TSH PTH Intact Cortisol AM Sample Urine Protein Negative Urine Blood Negative Urine Osmolality Ur Random Sodium Impression 1. STEVE improving 2. CHF 3. valvular heart disease 4. cellulitis 5. a-fib 6. COPD 7. hyponatremia Plan - cont to monitor renal function - cont diuretics with close monitoring of lytes - monitor potassium - plasma osm is normal - check spep - repeat ua is negative for blood or protein - ultrasound of the kidneys is normal, there is a high PVR however pt did not void, check bedside scan after voiding - will follow Dr Son
--- NOTE | 2016-11-17 16:02 | PN ---
Progress Note, Physician History of Present Illness: Awake, alert No c/o leg pain No c/o chest pain/ dyspnea No fever/ chills - Current Medication List Current Medications: Active Medications Acetaminophen (Tylenol -) 650 mg PO Q4H PRN PRN Reason: FEVER OR PAIN Last Admin: 11/13/16 13:16 Dose: 650 mg Albuterol/Ipratropium (Duoneb -) 1 amp NEB Q4H PRN PRN Reason: SHORTNESS OF BREATH Last Admin: 11/17/16 06:40 Dose: 1 amp Alprazolam (Xanax -) 0.25 mg PO Q8H PRN PRN Reason: ANXIETY Last Admin: 11/16/16 18:22 Dose: 0.25 mg Amiodarone HCl (Cordarone -) 200 mg PO DAILY [facility] Last Admin: 11/17/16 10:42 Dose: 200 mg Doxycycline Hyclate (Vibramycin -) 100 mg PO BID@1000,1800 [facility] Last Admin: 11/17/16 10:43 Dose: 100 mg Furosemide (Lasix Injection -) 80 mg IVPUSH BID@0600,1400 [facility] Last Admin: 11/17/16 13:35 Dose: 80 mg Heparin Sodium (Porcine) (Heparin -) 1,000 unit IVPUSH PRN PRN PRN Reason: Heparin Last Admin: 11/17/16 10:42 Dose: 1,000 unit Heparin Sodium (Porcine) (Heparin -) 5,000 unit IVPUSH PRN PRN PRN Reason: Heparin Last Admin: 11/15/16 09:46 Dose: 5,000 unit Heparin Sodium/Dextrose (Heparin Infusion -) 500 mls @ 20 mls/hr IVPB TITR SID ; 1,000 UNITS/HR PRN Reason: Protocol Last Admin: 11/17/16 13:33 Dose: Not Given Ceftriaxone Sodium (Rocephin 2gm Ivpb (Pre-Docked)) 100 mls @ 200 mls/hr IVPB DAILY [facility] Last Admin: 11/17/16 10:43 Dose: 200 mls/hr Gentamicin Sulfate 90 mg/ (Sodium Chloride) 102.25 mls @ 100 mls/hr IVPB DAILY [facility] Last Admin: 11/17/16 10:44 Dose: 100 mls/hr Potassium Chloride (K-Dur -) 20 meq PO BID [facility] Last Admin: 11/17/16 10:42 Dose: 20 meq Spironolactone (Aldactone -) 50 mg PO DAILY [facility] Last Admin: 11/17/16 10:41 Dose: 50 mg Warfarin Sodium (Coumadin -) 5 mg PO DAILY@1800 [facility] Zolpidem Tartrate (Ambien -) 10 mg PO HS PRN Last Admin: 11/17/16 01:13 Dose: 10 mg - Objective Vital Signs: Vital Signs Temperature 98.2 F 11/17/16 14:42 Pulse Rate 103 H 11/17/16 14:42 Respiratory Rate 22 11/17/16 14:42 Blood Pressure 94/54 11/17/16 14:42 O2 Sat by Pulse Oximetry (%) 98 11/16/16 21:00 Constitutional: Yes: No Distress Eyes: Yes: Conjunctiva Clear Cardiovascular: Yes: Regular Rate and Rhythm, S1, S2 Respiratory: Yes: CTA Bilaterally Gastrointestinal: Yes: Normal Bowel Sounds, Soft Extremities: Yes: Other (erythema/ warmth R LE) Labs: CBC, BMP 11/17/16 06:40 11/17/16 06:40 INR, PTT INR 1.45 (0.82-1.09) H 11/17/16 06:40 Assessment/Plan Cellulitis R LE Viridans strep bacteremia Possible PVE Possible pneumonia Ceftriaxone 2gm IVPB daily + gentamicin synergy Echo
[2016-11-17] MEDS: WARFARIN NA 5 MG TABLET (UD) PO SCH (17:44)
[2016-11-17] MEDS: ALBUMIN HUMAN 25% 12.5 GM/50 ML VIAL IVPB SCH (18:51)
--- NOTE | 2016-11-17 19:01 | PN ---
GI Progress Note Subjective: intermittent rectal bleeding, nio nausea and no vomiting - Objective Vital Signs: Vital Signs Temperature 98.2 F 11/17/16 14:42 Pulse Rate 103 H 11/17/16 14:42 Respiratory Rate 22 11/17/16 14:42 Blood Pressure 94/54 11/17/16 14:42 O2 Sat by Pulse Oximetry (%) 98 11/17/16 09:00 Constitutional: Well Nourished Eyes: Yes: Conjunctiva Clear HENT: Yes: Atraumatic Neck: Yes: Supple Cardiovascular: Yes: Regular Rate and Rhythm Respiratory: Yes: CTA Bilaterally ...Palpate: Yes: Soft. No: Firm/Rigid, Guarding, Hepatomegaly, Mass, Pulsatile Mass, Splenomegaly, Tenderness Labs: CBC, BMP 11/17/16 06:40 11/17/16 06:40 INR, PTT INR 1.45 (0.82-1.09) H 11/17/16 06:40 Problem List - Problems (1) Rectal bleed Assessment/Plan: intermittent minimal R> for colonoscopy once medical cleared Code(s): K62.5 - HEMORRHAGE OF ANUS AND RECTUM
[2016-11-18] MEDS: ALBUTEROL SO4 2.5/IPRATROPIUM 0.5 INH SOL 3 ML VIAL.NEB. NEB PRN ×2 (00:22→11:08)
[2016-11-18] MEDS: HEPARIN INFUSION - 500 ML IVPB SCH ×2 (02:29→12:44)
[2016-11-18] MEDS: ALBUMIN HUMAN 25% 12.5 GM/50 ML VIAL IVPB SCH ×2 (06:33→22:11)
[2016-11-18] MEDS: FUROSEMIDE 40 MG/4 ML INJECTABLE VIAL IVPUSH SCH ×2 (06:34→22:13)
[2016-11-18 07:29] LABS: MCH 28.8 pg (25.7-33.7); MEAN CELL VOLUME 84.8 fl (80-96); MEAN PLT VOLUME 8.2 fl (7.5-11.1); PLATELET COUNT 157 K/MM3 (134-434); RDW 17.6 % (11.9-15.9); WHITE BLOOD COUNT 15.8 K/mm3 (4.0-10.0)
[2016-11-18 07:42] LABS: INR 1.51 (0.82-1.09); PROTHROMBIN TIME (PATIENT) 16.7 SEC (9.98-11.88)
--- NOTE | 2016-11-18 07:52 | PN ---
Progress Note, Physician History of Present Illness: no cp c/o sob - Current Medication List Current Medications: Active Medications Acetaminophen (Tylenol -) 650 mg PO Q4H PRN PRN Reason: FEVER OR PAIN Last Admin: 11/13/16 13:16 Dose: 650 mg Albumin Human (Albumin Human 25%) 12.5 gm IVPB Q12H [facility] Stop: 11/20/16 06:01 Last Admin: 11/18/16 06:33 Dose: 12.5 gm Albuterol/Ipratropium (Duoneb -) 1 amp NEB Q4H PRN PRN Reason: SHORTNESS OF BREATH Last Admin: 11/18/16 00:22 Dose: 1 amp Alprazolam (Xanax -) 0.25 mg PO Q8H PRN PRN Reason: ANXIETY Last Admin: 11/16/16 18:22 Dose: 0.25 mg Amiodarone HCl (Cordarone -) 200 mg PO DAILY [facility] Last Admin: 11/17/16 10:42 Dose: 200 mg Doxycycline Hyclate (Vibramycin -) 100 mg PO BID@1000,1800 [facility] Last Admin: 11/17/16 17:44 Dose: 100 mg Furosemide (Lasix Injection -) 80 mg IVPUSH Q12H [facility] Last Admin: 11/18/16 06:34 Dose: 80 mg Heparin Sodium (Porcine) (Heparin -) 1,000 unit IVPUSH PRN PRN PRN Reason: Heparin Last Admin: 11/17/16 10:42 Dose: 1,000 unit Heparin Sodium (Porcine) (Heparin -) 5,000 unit IVPUSH PRN PRN PRN Reason: Heparin Last Admin: 11/15/16 09:46 Dose: 5,000 unit Heparin Sodium/Dextrose (Heparin Infusion -) 500 mls @ 20 mls/hr IVPB TITR SID ; 1,000 UNITS/HR PRN Reason: Protocol Last Admin: 11/18/16 02:29 Dose: 37 mls/hr Ceftriaxone Sodium (Rocephin 2gm Ivpb (Pre-Docked)) 100 mls @ 200 mls/hr IVPB DAILY [facility] Last Admin: 11/17/16 10:43 Dose: 200 mls/hr Gentamicin Sulfate 90 mg/ (Sodium Chloride) 102.25 mls @ 100 mls/hr IVPB DAILY [facility] Last Admin: 11/17/16 10:44 Dose: 100 mls/hr Potassium Chloride (K-Dur -) 20 meq PO BID [facility] Last Admin: 11/17/16 22:59 Dose: 20 meq Spironolactone (Aldactone -) 50 mg PO DAILY [facility] Last Admin: 11/17/16 10:41 Dose: 50 mg Warfarin Sodium (Coumadin -) 5 mg PO DAILY@1800 [facility] Last Admin: 11/17/16 17:44 Dose: 5 mg Zolpidem Tartrate (Ambien -) 10 mg PO HS PRN Last Admin: 11/17/16 22:59 Dose: 10 mg - Objective Vital Signs: Vital Signs Temperature 97.5 F L 11/18/16 06:00 Pulse Rate 108 H 11/18/16 06:00 Respiratory Rate 20 11/18/16 06:00 Blood Pressure 101/59 11/18/16 06:00 O2 Sat by Pulse Oximetry (%) 99 11/17/16 21:00 Cardiovascular: Yes: Murmur, S1, S2 Respiratory: Yes: Diminished, On Nasal O2, Rales Gastrointestinal: Yes: Normal Bowel Sounds, Soft Labs: CBC, BMP 11/18/16 06:35 INR, PTT INR 1.45 (0.82-1.09) H 11/17/16 06:40 Problem List - Problems (1) CHF (congestive heart failure) Assessment/Plan: IV LASIX--INCREASE TO [address] OF CHEST NOTED--F/U CXR TODAY ECHO NOTED-VIDA TODAY ON ALDACTONE Code(s): I50.9 - HEART FAILURE, UNSPECIFIED Qualifiers: Congestive heart failure type: unspecified congestive heart failure type Congestive heart failure chronicity: unspecified congestive heart failure chronicity Qualified Code(s): I50.9 - Heart failure, unspecified (2) Supratherapeutic INR Assessment/Plan: HOLD COUMADIN--OFF--RESUME 5 MG ON HEPARIN Code(s): R79.1 - ABNORMAL COAGULATION PROFILE (3) Atrial fibrillation Assessment/Plan: OFF COUMADIN--ON HEPARIN--RESUME COUMADIN OFF TELE Code(s): I48.91 - UNSPECIFIED ATRIAL FIBRILLATION Qualifiers: Atrial fibrillation type: persistent Qualified Code(s): I48.1 - Persistent atrial fibrillation (4) Anemia Assessment/Plan: W/U ORDERED--FE/TIBC/FERRITIN/B12/OCCULT BLOOD Laboratory Tests 11/14/16 11/16/16 07:00 05:35 Hgb 10.2 L 10.3 L Code(s): D64.9 - ANEMIA, UNSPECIFIED Qualifiers: Anemia type: unspecified type Qualified Code(s): D64.9 - Anemia, unspecified (5) Renal insufficiency Assessment/Plan: MONITOR ON DIURETICS Laboratory Tests 11/14/16 11/15/16 07:00 07:25 Creatinine 1.7 H 1.6 H Code(s): N28.9 - DISORDER OF KIDNEY AND URETER, UNSPECIFIED (6) Hypokalemia Assessment/Plan: REPLACE AND MONITOR Laboratory Tests 11/13/16 11/14/16 08:05 07:00 Potassium 3.2 L 4.0 D Code(s): E87.6 - HYPOKALEMIA (7) Heart valve replaced Assessment/Plan: ECHO-- NOTED--FOR VIDA CARDIO ON BOARD Code(s): Z95.2 - PRESENCE OF PROSTHETIC HEART VALVE (8) Cellulitis Assessment/Plan: IV ABX CULTURES ID CONSULT Code(s): L03.90 - CELLULITIS, UNSPECIFIED (9) Pneumonia Assessment/Plan: CT SCAN NOTED--GROUND GLASS APPEARANCE IV BX ID AND PULM CONSULT CXR Code(s): J18.9 - PNEUMONIA, UNSPECIFIED ORGANISM (10) Bacteremia Assessment/Plan: R/O VALVE INVOLVEMENT---ECHO CARDIO--VIDA IV ABX PER ID Microbiology 11/15/16 07:30 Blood - Peripheral Venous Blood Culture - Preliminary NO GROWTH OBTAINED AFTER 48 HOURS, INCUBATION TO CONTINUE FOR 3 DAYS. 11/15/16 07:15 Blood - Peripheral Venous Blood Culture - Preliminary NO GROWTH OBTAINED AFTER 48 HOURS, INCUBATION TO CONTINUE FOR 3 DAYS. 11/12/16 23:49 Blood - Peripheral Venous Blood Culture - Final Viridans Streptococcus Group 11/12/16 23:49 Blood - Peripheral Venous Blood Culture - Final Viridans Streptococcus Group 11/14/16 15:00 Urine For Antigen Detection Legionella Antigen - Final 11/14/16 15:00 Urine For Antigen Detection Streptococcus pneumoniae Antigen (M - Final 11/12/16 20:29 Urine - Urine Clean Catch Urine Culture - Final NO GROWTH OBTAINED Code(s): R78.81 - BACTEREMIA
[2016-11-18 08:27] LABS: ALBUMIN 3.3 g/dl (3.4-5.0); ANION GAP 16 (8-16); BILIRUBIN,TOTAL 1.5 mg/dL (0.2-1.0); CALCIUM 9.6 mg/dL (8.5-10.1); CO2 23 mmol/L (21-32); CREATININE 1.8 mg/dL (0.7-1.3); GLUCOSE,RANDOM 134 mg/dL (74-106); SGOT/AST 29 U/L (15-37); SGPT/ALT 15 U/L (12-78); TOT PROT 7.5 g/dl (6.4-8.2)
[2016-11-18 08:28] LABS: ALK PHOS 205 U/L (45-117)
[2016-11-18 09:31] LABS: METAMYELOCYTE 2 % (0-2); PLATELET ESTIMATE ADEQUATE (NORMAL)
[2016-11-18] MEDS: POTASSIUM CHLORIDE TABS 20 MEQ TABLET.ER (FP) PO SCH ×2 (10:30→22:13)
[2016-11-18] MEDS: AMIODARONE HCL 200 MG TABLET (FP) PO SCH (10:30)
[2016-11-18] MEDS: ALPRAZolam 0.25 MG TABLET PO PRN (10:30)
[2016-11-18] MEDS: DOXYCYCLINE HYCLATE 100 MG CAPSULE PO SCH ×2 (10:31→22:13)
[2016-11-18] MEDS: GENTAMICIN INJECTION 90 MG in SODIUM CHLORIDE 100 ML IVPB SCH (10:31)
[2016-11-18] MEDS: SPIRONOLACTONE 25 MG TABLET (FP) PO SCH (10:31)
--- NOTE | 2016-11-18 11:23 | PN ---
Progress Note (short form) - Note Progress Note: Still feeling SOB. (+) dry cough. Currently receiving a BD TX. (+) orthopnea No CP. CXR : mild decrease but persistent Pulmonary Vascular congestion Right > Left / left pleural effusion Intake & Output 11/15/16 11/16/16 11/17/16 11/18/16 23:59 23:59 23:59 23:59 Intake Total 2017 1844 2423 507 Output Total 550 970 900 Balance 5866 812 6491 -393 Weight 193 lb 192 lb 194 lb 194 lb 2 oz Last Vital Signs Temp Pulse Resp BP Pulse Ox 97.6 F 108 H 22 94/62 99 11/18/16 10:00 11/18/16 10:13 11/18/16 10:13 11/18/16 10:13 11/17/16 21:00 Active Medications Acetaminophen (Tylenol -) 650 mg PO Q4H PRN PRN Reason: FEVER OR PAIN Last Admin: 11/13/16 13:16 Dose: 650 mg Albumin Human (Albumin Human 25%) 12.5 gm IVPB Q12H SID Stop: 11/20/16 06:01 Last Admin: 11/18/16 06:33 Dose: 12.5 gm Albuterol/Ipratropium (Duoneb -) 1 amp NEB Q4H PRN PRN Reason: SHORTNESS OF BREATH Last Admin: 11/18/16 00:22 Dose: 1 amp Alprazolam (Xanax -) 0.25 mg PO Q8H PRN PRN Reason: ANXIETY Last Admin: 11/18/16 10:30 Dose: 0.25 mg Amiodarone HCl (Cordarone -) 200 mg PO DAILY [facility] Last Admin: 11/18/16 10:30 Dose: 200 mg Doxycycline Hyclate (Vibramycin -) 100 mg PO BID@1000,1800 SID Last Admin: 11/18/16 10:31 Dose: 100 mg Furosemide (Lasix Injection -) 80 mg IVPUSH Q12H SID Last Admin: 11/18/16 06:34 Dose: 80 mg Heparin Sodium (Porcine) (Heparin -) 1,000 unit IVPUSH PRN PRN PRN Reason: Heparin Last Admin: 11/17/16 10:42 Dose: 1,000 unit Heparin Sodium (Porcine) (Heparin -) 5,000 unit IVPUSH PRN PRN PRN Reason: Heparin Last Admin: 11/15/16 09:46 Dose: 5,000 unit Heparin Sodium/Dextrose (Heparin Infusion -) 500 mls @ 20 mls/hr IVPB TITR SID ; 1,000 UNITS/HR PRN Reason: Protocol Last Titration: 11/18/16 10:07 Dose: 1,800 units/hr Ceftriaxone Sodium (Rocephin 2gm Ivpb (Pre-Docked)) 100 mls @ 200 mls/hr IVPB DAILY [facility] Last Admin: 11/17/16 10:43 Dose: 200 mls/hr Gentamicin Sulfate 90 mg/ (Sodium Chloride) 102.25 mls @ 100 mls/hr IVPB DAILY [facility] Last Admin: 11/18/16 10:31 Dose: 100 mls/hr Potassium Chloride (K-Dur -) 20 meq PO BID [facility] Last Admin: 11/18/16 10:30 Dose: 20 meq Spironolactone (Aldactone -) 50 mg PO DAILY [facility] Last Admin: 11/18/16 10:31 Dose: Not Given Warfarin Sodium (Coumadin -) 5 mg PO DAILY@1800 [facility] Last Admin: 11/17/16 17:44 Dose: 5 mg Zolpidem Tartrate (Ambien -) 10 mg PO HS PRN Last Admin: 11/17/16 22:59 Dose: 10 mg Constitutional: Yes: Awake and alert, NAD Eyes: Yes: WNL HENT: Yes: WNL Neck: Yes: WNL Cardiovascular: Yes: Pulse Irregular, S1, S2 Respiratory: Yes: Bibasilar Rales, no wheezing Gastrointestinal: Yes: Normal Bowel Sounds, Soft Extremities: Yes: WNL Edema: Yes Labs: Laboratory Results - last 24 hr 11/14/16 11/17/16 11/17/16 05:50 06:40 07:00 WBC RBC Hgb Hct MCV MCH MCHC RDW Plt Count MPV Neutrophils % Lymphocytes % Monocytes % Eosinophils % Metamyelocytes Myelocytes Nucleated RBCs Differential Comment Platelet Estimate INR PTT (Actin FS) Sodium Potassium Chloride Carbon Dioxide Anion Gap BUN Creatinine Creat Clearance w eGFR Random Glucose Serum Osmolality 291 Calcium Total Bilirubin AST ALT Alkaline Phosphatase Total Protein Albumin Cortisol AM Sample 15.1 Urine Color Urine Appearance Urine pH Ur Specific Thomas Urine Protein Urine Glucose (UA) Urine Ketones Urine Blood Urine Nitrite Urine Bilirubin Urine Urobilinogen Ur Leukocyte Esterase Stool Occult Blood Gentamicin Trough A. phagocytophilum DNA Negative Lyme Screen IgG & IgM <0.91 11/17/16 11/17/16 11/17/16 11:00 15:27 16:30 WBC RBC Hgb Hct MCV MCH MCHC RDW Plt Count MPV Neutrophils % Lymphocytes % Monocytes % Eosinophils % Metamyelocytes Myelocytes Nucleated RBCs Differential Comment Platelet Estimate INR PTT (Actin FS) 43.6 H Sodium Potassium Chloride Carbon Dioxide Anion Gap BUN Creatinine Creat Clearance w eGFR Random Glucose Serum Osmolality Calcium Total Bilirubin AST ALT Alkaline Phosphatase Total Protein Albumin Cortisol AM Sample Urine Color Yellow Urine Appearance Clear Urine pH 5.0 Ur Specific Thomas 1.010 Urine Protein Negative Urine Glucose (UA) Negative Urine Ketones Negative Urine Blood Negative Urine Nitrite Negative Urine Bilirubin Negative Urine Urobilinogen Negative Ur Leukocyte Esterase Negative Stool Occult Blood Positive Gentamicin Trough A. phagocytophilum DNA Lyme Screen IgG & IgM 11/17/16 11/18/16 11/18/16 23:00 06:35 06:35 WBC RBC Hgb Hct MCV MCH MCHC RDW Plt Count MPV Neutrophils % Lymphocytes % Monocytes % Eosinophils % Metamyelocytes Myelocytes Nucleated RBCs Differential Comment Platelet Estimate INR PTT (Actin FS) 71.0 H D 82.4 H Sodium Potassium Chloride Carbon Dioxide Anion Gap BUN Creatinine Creat Clearance w eGFR Random Glucose Serum Osmolality Calcium Total Bilirubin AST ALT Alkaline Phosphatase Total Protein Albumin Cortisol AM Sample Urine Color Urine Appearance Urine pH Ur Specific Thomas Urine Protein Urine Glucose (UA) Urine Ketones Urine Blood Urine Nitrite Urine Bilirubin Urine Urobilinogen Ur Leukocyte Esterase Stool Occult Blood Gentamicin Trough 1.1 A. phagocytophilum DNA Lyme Screen IgG & IgM 11/18/16 11/18/16 11/18/16 06:35 06:35 06:35 WBC 15.8 H RBC 3.32 L Hgb 9.6 L Hct 28.2 L MCV 84.8 MCH 28.8 MCHC 34.0 RDW 17.6 H Plt Count 157 MPV 8.2 Neutrophils % 90.0 H Lymphocytes % 4.0 L D Monocytes % 2.0 L Eosinophils % 1.0 Metamyelocytes 2 Myelocytes 1 Nucleated RBCs 1 H Differential Comment Manual diff done Platelet Estimate Adequate INR 1.51 H PTT (Actin FS) Sodium 131 L Potassium 4.4 Chloride 92 L Carbon Dioxide 23 D Anion Gap 16 BUN 52 H Creatinine 1.8 H Creat Clearance w eGFR 38.42 Random Glucose 134 H Serum Osmolality Calcium 9.6 Total Bilirubin 1.5 H D AST 29 ALT 15 Alkaline Phosphatase 205 H Total Protein 7.5 Albumin 3.3 L Cortisol AM Sample Urine Color Urine Appearance Urine pH Ur Specific Thomas Urine Protein Urine Glucose (UA) Urine Ketones Urine Blood Urine Nitrite Urine Bilirubin Urine Urobilinogen Ur Leukocyte Esterase Stool Occult Blood Gentamicin Trough A. phagocytophilum DNA Lyme Screen IgG & IgM Assessment/Plan Problem List - Problems (1) Anemia Code(s): D64.9 - ANEMIA, UNSPECIFIED Qualifiers: Anemia type: unspecified type Qualified Code(s): D64.9 - Anemia, unspecified (2) Cellulitis Code(s): L03.90 - CELLULITIS, UNSPECIFIED (3) Heart valve replaced Code(s): Z95.2 - PRESENCE OF PROSTHETIC HEART VALVE (4) Pneumonia Code(s): J18.9 - PNEUMONIA, UNSPECIFIED ORGANISM (5) Supratherapeutic INR Code(s): R79.1 - ABNORMAL COAGULATION PROFILE (6) Atrial fibrillation Code(s): I48.91 - UNSPECIFIED ATRIAL FIBRILLATION Qualifiers: Atrial fibrillation type: persistent Qualified Code(s): I48.1 - Persistent atrial fibrillation (7) CHF (congestive heart failure) Code(s): I50.9 - HEART FAILURE, UNSPECIFIED Qualifiers: Congestive heart failure type: unspecified congestive heart failure type Congestive heart failure chronicity: unspecified congestive heart failure chronicity Qualified Code(s): I50.9 - Heart failure, unspecified (8) Bacteremia Code(s): R78.81 - BACTEREMIA Assessment/Plan Lasix BID ABX per ID O2 as needed BD TX AC for AFib For VIDA Dr Marquez Problem List - Problems (1) Anemia Code(s): D64.9 - ANEMIA, UNSPECIFIED Qualifiers: Anemia type: unspecified type Qualified Code(s): D64.9 - Anemia, unspecified (2) Cellulitis Code(s): L03.90 - CELLULITIS, UNSPECIFIED (3) Heart valve replaced Code(s): Z95.2 - PRESENCE OF PROSTHETIC HEART VALVE (4) Pneumonia Code(s): J18.9 - PNEUMONIA, UNSPECIFIED ORGANISM (5) Supratherapeutic INR Code(s): R79.1 - ABNORMAL COAGULATION PROFILE (6) Atrial fibrillation Code(s): I48.91 - UNSPECIFIED ATRIAL FIBRILLATION Qualifiers: Atrial fibrillation type: persistent Qualified Code(s): I48.1 - Persistent atrial fibrillation (7) CHF (congestive heart failure) Code(s): I50.9 - HEART FAILURE, UNSPECIFIED Qualifiers: Congestive heart failure type: unspecified congestive heart failure type Congestive heart failure chronicity: unspecified congestive heart failure chronicity Qualified Code(s): I50.9 - Heart failure, unspecified (8) Bacteremia Code(s): R78.81 - BACTEREMIA
--- NOTE | 2016-11-18 11:56 | EKG ---
Test Reason : Blood Pressure : / mmHG Vent. Rate : 099 BPM Atrial Rate : 094 BPM P-R Int : 000 ms QRS Dur : 160 ms QT Int : 452 ms P-R-T Axes : 000 091 266 degrees QTc Int : 580 ms SINUS RHYTHM WITH 1ST DEGREE A-V BLOCK LEFT BUNDLE BRANCH BLOCK ABNORMAL ECG Confirmed by ROXY TAMAYO, MARSHALL ([id number]) on 11/18/2016 11:56:10 AM Referred By: Jacque FELIX Confirmed By:MARSHALL RAMSEY MD
[2016-11-18] MEDS: CEFTRIAXONE 100 ML IVPB SCH (12:09)
--- NOTE | 2016-11-18 12:18 | PN ---
Progress Note, Physician History of Present Illness: Awake, alert No c/o leg pain no fever/ chills No c/o chest pain/ dyspnea Repeat BC no growth VIDA scheduled fpr today - Current Medication List Current Medications: Active Medications Acetaminophen (Tylenol -) 650 mg PO Q4H PRN PRN Reason: FEVER OR PAIN Last Admin: 11/13/16 13:16 Dose: 650 mg Albumin Human (Albumin Human 25%) 12.5 gm IVPB Q12H SID Stop: 11/20/16 06:01 Last Admin: 11/18/16 06:33 Dose: 12.5 gm Albuterol/Ipratropium (Duoneb -) 1 amp NEB Q4H PRN PRN Reason: SHORTNESS OF BREATH Last Admin: 11/18/16 11:08 Dose: 1 amp Alprazolam (Xanax -) 0.25 mg PO Q8H PRN PRN Reason: ANXIETY Last Admin: 11/18/16 10:30 Dose: 0.25 mg Amiodarone HCl (Cordarone -) 200 mg PO DAILY [facility] Last Admin: 11/18/16 10:30 Dose: 200 mg Doxycycline Hyclate (Vibramycin -) 100 mg PO BID@1000,1800 [facility] Last Admin: 11/18/16 10:31 Dose: 100 mg Furosemide (Lasix Injection -) 80 mg IVPUSH Q12H SID Last Admin: 11/18/16 06:34 Dose: 80 mg Heparin Sodium (Porcine) (Heparin -) 1,000 unit IVPUSH PRN PRN PRN Reason: Heparin Last Admin: 11/17/16 10:42 Dose: 1,000 unit Heparin Sodium (Porcine) (Heparin -) 5,000 unit IVPUSH PRN PRN PRN Reason: Heparin Last Admin: 11/15/16 09:46 Dose: 5,000 unit Heparin Sodium/Dextrose (Heparin Infusion -) 500 mls @ 20 mls/hr IVPB TITR SID ; 1,000 UNITS/HR PRN Reason: Protocol Last Titration: 11/18/16 10:07 Dose: 1,800 units/hr Ceftriaxone Sodium (Rocephin 2gm Ivpb (Pre-Docked)) 100 mls @ 200 mls/hr IVPB DAILY [facility] Last Admin: 11/18/16 12:09 Dose: 200 mls/hr Gentamicin Sulfate 90 mg/ (Sodium Chloride) 102.25 mls @ 100 mls/hr IVPB DAILY [facility] Last Admin: 11/18/16 10:31 Dose: 100 mls/hr Potassium Chloride (K-Dur -) 20 meq PO BID [facility] Last Admin: 11/18/16 10:30 Dose: 20 meq Spironolactone (Aldactone -) 50 mg PO DAILY [facility] Last Admin: 11/18/16 10:31 Dose: Not Given Warfarin Sodium (Coumadin -) 5 mg PO DAILY@1800 [facility] Last Admin: 11/17/16 17:44 Dose: 5 mg Zolpidem Tartrate (Ambien -) 10 mg PO HS PRN Last Admin: 11/17/16 22:59 Dose: 10 mg - Objective Vital Signs: Vital Signs Temperature 97.6 F 11/18/16 10:00 Pulse Rate 102 H 11/18/16 11:08 Respiratory Rate 22 11/18/16 10:13 Blood Pressure 94/62 11/18/16 10:13 O2 Sat by Pulse Oximetry (%) 98 11/18/16 11:08 Constitutional: Yes: No Distress Eyes: Yes: Conjunctiva Clear Cardiovascular: Yes: Regular Rate and Rhythm, Murmur, S1, S2 Respiratory: Yes: CTA Bilaterally Gastrointestinal: Yes: Normal Bowel Sounds, Soft. No: Tenderness Extremities: Yes: Other (decreased R LE swelling/ erythema/ warmth) Labs: CBC, BMP 11/18/16 06:35 11/18/16 06:35 INR, PTT INR 1.51 (0.82-1.09) H 11/18/16 06:35 Assessment/Plan Cellulitis R LE slowly improving Viridans strep bacteremia Possible PVE Ceftriaxone 2gm IVPB daily + gentamicin synergy VIDA today
[2016-11-18 14:14] LABS: CALCIUM 9.9 mg/dL (8.6-10.2)
--- NOTE | 2016-11-18 14:37 | PN ---
Progress Note, Physician History of Present Illness: Pt seen and examined at bedside. He is awake and alert. He still complains of shortness of breath. - Current Medication List Current Medications: Active Medications Acetaminophen (Tylenol -) 650 mg PO Q4H PRN PRN Reason: FEVER OR PAIN Last Admin: 11/13/16 13:16 Dose: 650 mg Albumin Human (Albumin Human 25%) 12.5 gm IVPB Q12H SID Stop: 11/20/16 06:01 Last Admin: 11/18/16 06:33 Dose: 12.5 gm Albuterol/Ipratropium (Duoneb -) 1 amp NEB Q4HPO SID Alprazolam (Xanax -) 0.25 mg PO Q8H PRN PRN Reason: ANXIETY Last Admin: 11/18/16 10:30 Dose: 0.25 mg Amiodarone HCl (Cordarone -) 200 mg PO DAILY [facility] Last Admin: 11/18/16 10:30 Dose: 200 mg Doxycycline Hyclate (Vibramycin -) 100 mg PO BID@1000,1800 [facility] Last Admin: 11/18/16 10:31 Dose: 100 mg Furosemide (Lasix Injection -) 80 mg IVPUSH Q12H [facility] Last Admin: 11/18/16 06:34 Dose: 80 mg Heparin Sodium (Porcine) (Heparin -) 1,000 unit IVPUSH PRN PRN PRN Reason: Heparin Last Admin: 11/17/16 10:42 Dose: 1,000 unit Heparin Sodium (Porcine) (Heparin -) 5,000 unit IVPUSH PRN PRN PRN Reason: Heparin Last Admin: 11/15/16 09:46 Dose: 5,000 unit Heparin Sodium/Dextrose (Heparin Infusion -) 500 mls @ 20 mls/hr IVPB TITR SID ; 1,000 UNITS/HR PRN Reason: Protocol Last Admin: 11/18/16 12:44 Dose: 36 mls/hr Ceftriaxone Sodium (Rocephin 2gm Ivpb (Pre-Docked)) 100 mls @ 200 mls/hr IVPB DAILY [facility] Last Admin: 11/18/16 12:09 Dose: 200 mls/hr Gentamicin Sulfate 90 mg/ (Sodium Chloride) 102.25 mls @ 100 mls/hr IVPB DAILY [facility] Last Admin: 11/18/16 10:31 Dose: 100 mls/hr Potassium Chloride (K-Dur -) 20 meq PO BID [facility] Last Admin: 11/18/16 10:30 Dose: 20 meq Spironolactone (Aldactone -) 50 mg PO DAILY [facility] Last Admin: 11/18/16 10:31 Dose: Not Given Warfarin Sodium (Coumadin -) 5 mg PO DAILY@1800 [facility] Last Admin: 11/17/16 17:44 Dose: 5 mg Zolpidem Tartrate (Ambien -) 10 mg PO PRN Last Admin: 11/17/16 22:59 Dose: 10 mg - Objective Vital Signs: Vital Signs Temperature 97.9 F 11/18/16 14:00 Pulse Rate 109 H 11/18/16 14:00 Respiratory Rate 22 11/18/16 14:00 Blood Pressure 107/62 11/18/16 14:00 O2 Sat by Pulse Oximetry (%) 98 11/18/16 11:08 Constitutional: Yes: Calm Eyes: Yes: Conjunctiva Clear HENT: Yes: Atraumatic Neck: Yes: Supple Cardiovascular: Yes: S1, S2 Respiratory: Yes: On Nasal O2 Gastrointestinal: Yes: Soft Genitourinary: Yes: WNL Musculoskeletal: Yes: WNL Edema: Yes Edema: LLE: 1+, RLE: 1+ Neurological: Yes: Oriented Psychiatric: Yes: Oriented Labs: CBC, BMP 11/18/16 06:35 11/18/16 06:35 INR, PTT INR 1.51 (0.82-1.09) H 11/18/16 06:35 Problem List - Problems (1) Cellulitis Code(s): L03.90 - CELLULITIS, UNSPECIFIED (2) Heart valve replaced Code(s): Z95.2 - PRESENCE OF PROSTHETIC HEART VALVE (3) Atrial fibrillation Code(s): I48.91 - UNSPECIFIED ATRIAL FIBRILLATION Qualifiers: Atrial fibrillation type: persistent Qualified Code(s): I48.1 - Persistent atrial fibrillation (4) CHF (congestive heart failure) Code(s): I50.9 - HEART FAILURE, UNSPECIFIED Qualifiers: Congestive heart failure type: unspecified congestive heart failure type Congestive heart failure chronicity: unspecified congestive heart failure chronicity Qualified Code(s): I50.9 - Heart failure, unspecified (5) STEVE (acute kidney injury) Code(s): N17.9 - ACUTE KIDNEY FAILURE, UNSPECIFIED Assessment/Plan Current Medications Generic Name Dose Route Start Last Admin Trade Name Freq PRN Reason Stop Dose Admin Acetaminophen 650 mg 11/13/16 12:29 11/13/16 13:16 Tylenol - PO 650 mg Q4H PRN Administration FEVER OR PAIN Albumin Human 12.5 gm 11/17/16 18:00 11/18/16 06:33 Albumin Human 25% IVPB 11/20/16 06:01 12.5 gm Q12H SID Administration Albuterol/Ipratropium 1 amp 11/18/16 14:01 Duoneb - NEB Q4HPO SID Alprazolam 0.25 mg 11/15/16 18:27 11/18/16 10:30 Xanax - PO 0.25 mg Q8H PRN Administration ANXIETY Amiodarone HCl 200 mg 11/13/16 10:00 11/18/16 10:30 Cordarone - PO 200 mg DAILY [facility]ID Administration Doxycycline Hyclate 100 mg 11/13/16 18:00 11/18/16 10:31 Vibramycin - PO 100 mg BID@1000,1800 SID Administration Furosemide 80 mg 11/17/16 18:00 11/18/16 06:34 Lasix Injection - IVPUSH 80 mg Q12H SID Administration Heparin Sodium (Porcine) 1,000 unit 11/14/16 11:57 11/17/16 10:42 Heparin - IVPUSH 1,000 unit PRN PRN Administration Heparin Heparin Sodium (Porcine) 5,000 unit 11/14/16 11:57 11/15/16 09:46 Heparin - IVPUSH 5,000 unit PRN PRN Administration Heparin Heparin Sodium/Dextrose 500 mls @ 20 mls/hr 11/14/16 12:00 11/18/16 12:44 Heparin Infusion - IVPB 36 mls/hr TITR SID Administration Protocol 1,000 UNITS/HR Ceftriaxone Sodium 100 mls @ 200 mls/hr 11/17/16 10:00 11/18/16 12:09 Rocephin 2gm Ivpb (Pre-Docked) IVPB 200 mls/hr DAILY [facility] Administration Gentamicin Sulfate 90 mg/ 102.25 mls @ 100 mls/hr 11/17/16 10:00 11/18/16 10:31 Sodium Chloride IVPB 100 mls/hr DAILY SID Administration Potassium Chloride 20 meq 11/13/16 10:00 11/18/16 10:30 K-Dur - PO 20 meq BID SID Administration Spironolactone 50 mg 11/13/16 10:00 11/18/16 10:31 Aldactone - PO Not Given DAILY SID Warfarin Sodium 5 mg 11/17/16 18:00 11/17/16 17:44 Coumadin - PO 5 mg DAILY@1800 SID Administration Zolpidem Tartrate 10 mg 11/16/16 23:00 11/17/16 22:59 Ambien - PO 10 mg HS PRN Administration Laboratory Tests 11/17/16 13:00 JUAN PABLO [facility] Pending Impression 1. STEVE improving 2. CHF 3. valvular heart disease 4. cellulitis 5. a-fib 6. COPD 7. hyponatremia 8. pleural effusions Plan - cont with diuretics - cxr reviewed - follow up spep - check bedside bladder scan after voiding - repeat labs in am - will follow Dr Son
[2016-11-18] MEDS: ALBUTEROL SO4 2.5/IPRATROPIUM 0.5 INH SOL 3 ML VIAL.NEB. NEB SCH ×4 (14:40→21:54)
[2016-11-18] MEDS ORDERED: LIDOCAINE HCL/PF 2% SDV 5ML VIAL ONE (14:48)
[2016-11-18] MEDS ORDERED: PROPOFOL 20 ML ONE ×2 (14:48)
--- NOTE | 2016-11-18 14:54 | PN ---
Progress Note, Physician Chief Complaint: chf, strep viridans bacteremia History of Present Illness: c/o sob at rest presently. denies cp, palpitations, wheezing - Current Medication List Current Medications: Active Medications Acetaminophen (Tylenol -) 650 mg PO Q4H PRN PRN Reason: FEVER OR PAIN Last Admin: 11/13/16 13:16 Dose: 650 mg Albumin Human (Albumin Human 25%) 12.5 gm IVPB Q12H SID Stop: 11/20/16 06:01 Last Admin: 11/18/16 06:33 Dose: 12.5 gm Albuterol/Ipratropium (Duoneb -) 1 amp NEB Q4HPO SID Last Admin: 11/18/16 14:40 Dose: Not Given Alprazolam (Xanax -) 0.25 mg PO Q8H PRN PRN Reason: ANXIETY Last Admin: 11/18/16 10:30 Dose: 0.25 mg Amiodarone HCl (Cordarone -) 200 mg PO DAILY [facility] Last Admin: 11/18/16 10:30 Dose: 200 mg Doxycycline Hyclate (Vibramycin -) 100 mg PO BID@1000,1800 [facility] Last Admin: 11/18/16 10:31 Dose: 100 mg Furosemide (Lasix Injection -) 80 mg IVPUSH Q12H [facility] Last Admin: 11/18/16 06:34 Dose: 80 mg Heparin Sodium (Porcine) (Heparin -) 1,000 unit IVPUSH PRN PRN PRN Reason: Heparin Last Admin: 11/17/16 10:42 Dose: 1,000 unit Heparin Sodium (Porcine) (Heparin -) 5,000 unit IVPUSH PRN PRN PRN Reason: Heparin Last Admin: 11/15/16 09:46 Dose: 5,000 unit Heparin Sodium/Dextrose (Heparin Infusion -) 500 mls @ 20 mls/hr IVPB TITR SID ; 1,000 UNITS/HR PRN Reason: Protocol Last Admin: 11/18/16 12:44 Dose: 36 mls/hr Ceftriaxone Sodium (Rocephin 2gm Ivpb (Pre-Docked)) 100 mls @ 200 mls/hr IVPB DAILY [facility] Last Admin: 11/18/16 12:09 Dose: 200 mls/hr Gentamicin Sulfate 90 mg/ (Sodium Chloride) 102.25 mls @ 100 mls/hr IVPB DAILY [facility] Last Admin: 11/18/16 10:31 Dose: 100 mls/hr Potassium Chloride (K-Dur -) 20 meq PO BID [facility] Last Admin: 11/18/16 10:30 Dose: 20 meq Spironolactone (Aldactone -) 50 mg PO DAILY [facility] Last Admin: 11/18/16 10:31 Dose: Not Given Warfarin Sodium (Coumadin -) 5 mg PO DAILY@1800 [facility] Last Admin: 11/17/16 17:44 Dose: 5 mg Zolpidem Tartrate (Ambien -) 10 mg PO HS PRN Last Admin: 11/17/16 22:59 Dose: 10 mg - Objective Vital Signs: Vital Signs Temperature 97.9 F 11/18/16 14:00 Pulse Rate 109 H 11/18/16 14:00 Respiratory Rate 22 11/18/16 14:00 Blood Pressure 107/62 11/18/16 14:00 O2 Sat by Pulse Oximetry (%) 98 11/18/16 11:08 Constitutional: Yes: Mild Distress Cardiovascular: Yes: Regular Rate and Rhythm ([facility] S2 click), S1, S2. No: JVD, Murmur, S3 Respiratory: Yes: Regular, CTA Bilaterally, Diminished (R base). No: Accessory Muscle Use, Rales, Wheezes Extremities: No: Cold Edema: Yes (ankles) Neurological: Yes: Alert. 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 asymmetric pulm edema-- don't think his prior cardiac surgery would predispose him to this). -rpt CXR today, L effusion small on my review -was receiving lasix 40mg IV BID here, increased to 80 iv bid on 11/17 -SBP low 90s, per d/w he runs 80s-90s often at baseline at home (90s-100s here on 2016 admit). not cool peripherally. hopefully not approaching cardiogenic shock. -increase lasix to 80mg IV TID given radiographic effusion (L) is worsening. -for VIDA to r/o valve failure Afib -Currently in SR on Amiodarone -[facility], [facility] -done [address] tran, per -on coumadin with hep gtt bridging -normal fcn on transthoracic here. for VIDA ? pna, +bld cx: -on abx, ID following -given positive bld cxs and hx of MVR/AVR, ID is concerned for possible endocarditis. Will plan for VIDA tomorrow afternoon to r/o endocarditis.
[2016-11-18] MEDS ORDERED: FUROSEMIDE 40 MG/4 ML INJECTABLE VIAL IVPUSH ONE (16:08)
[2016-11-18] MEDS ORDERED: DOBUTAMINE HCL 250,000 MCG in SODIUM CHLORIDE 230 ML IV SCH (16:15)
[2016-11-18] MEDS ORDERED: DOBUTAMINE 250 MG/D5W - 250 ML ONE (16:32)
[2016-11-18] MEDS ORDERED: DOBUTAMINE 250 MG/D5W - 250 ML IV SCH (16:45)
--- NOTE | 2016-11-18 17:39 | PN ---
Progress Note, Physician Chief Complaint: shortness of breath,severe at rest tachypnea,awaiting [place] [facility] [place] mvr History of Present Illness: 61 y male pmh mvr for endocarditis,has had worsening dyspnea and now chf found to have severe mvr on heather, started on diuretics and dobutamine in icu for chf awaiting transfer [place] [facility] care of - Current Medication List Current Medications: Active Medications Acetaminophen (Tylenol -) 650 mg PO Q4H PRN PRN Reason: FEVER OR PAIN Last Admin: 11/13/16 13:16 Dose: 650 mg Albumin Human (Albumin Human 25%) 12.5 gm IVPB Q12H SID Stop: 11/20/16 06:01 Last Admin: 11/18/16 06:33 Dose: 12.5 gm Albuterol/Ipratropium (Duoneb -) 1 amp NEB Q4HPO [facility] Last Admin: 11/18/16 14:40 Dose: Not Given Alprazolam (Xanax -) 0.25 mg PO Q8H PRN PRN Reason: ANXIETY Last Admin: 11/18/16 10:30 Dose: 0.25 mg Amiodarone HCl (Cordarone -) 200 mg PO DAILY [facility] Last Admin: 11/18/16 10:30 Dose: 200 mg Doxycycline Hyclate (Vibramycin -) 100 mg PO BID@1000,1800 [facility] Last Admin: 11/18/16 10:31 Dose: 100 mg Furosemide (Lasix Injection -) 80 mg IVPUSH TID SID Heparin Sodium (Porcine) (Heparin -) 1,000 unit IVPUSH PRN PRN PRN Reason: Heparin Last Admin: 11/17/16 10:42 Dose: 1,000 unit Heparin Sodium (Porcine) (Heparin -) 5,000 unit IVPUSH PRN PRN PRN Reason: Heparin Last Admin: 11/15/16 09:46 Dose: 5,000 unit Heparin Sodium/Dextrose (Heparin Infusion -) 500 mls @ 20 mls/hr IVPB TITR SID ; 1,000 UNITS/HR PRN Reason: Protocol Last Admin: 11/18/16 12:44 Dose: 36 mls/hr Ceftriaxone Sodium (Rocephin 2gm Ivpb (Pre-Docked)) 100 mls @ 200 mls/hr IVPB DAILY [facility] Last Admin: 11/18/16 12:09 Dose: 200 mls/hr Gentamicin Sulfate 90 mg/ (Sodium Chloride) 102.25 mls @ 100 mls/hr IVPB DAILY [facility] Last Admin: 11/18/16 10:31 Dose: 100 mls/hr Dobutamine HCl/Dextrose (Dobutamine 250 Mg/D5w -) 250 mls @ 26.416 mls/hr IV TITR SID; 5 MCG/KG/MIN PRN Reason: Protocol Last Admin: 11/18/16 17:17 Dose: 26.416 mls/hr Potassium Chloride (K-Dur -) 20 meq PO BID [facility] Last Admin: 11/18/16 10:30 Dose: 20 meq Spironolactone (Aldactone -) 50 mg PO DAILY [facility] Last Admin: 11/18/16 10:31 Dose: Not Given Warfarin Sodium (Coumadin -) 5 mg PO DAILY@1800 [facility] Last Admin: 11/17/16 17:44 Dose: 5 mg Zolpidem Tartrate (Ambien -) 10 mg PO HS PRN Last Admin: 11/17/16 22:59 Dose: 10 mg - Objective Vital Signs: Vital Signs Temperature 97.9 F 11/18/16 17:01 Pulse Rate 107 H 11/18/16 17:01 Respiratory Rate 39 H 11/18/16 17:01 Blood Pressure 105/73 11/18/16 17:01 O2 Sat by Pulse Oximetry (%) 98 11/18/16 11:08 Constitutional: Yes: Anxious, Moderate Distress Eyes: Yes: EOM Intact HENT: Yes: Normocephalic Neck: Yes: Trachea Midline Cardiovascular: Yes: Tachycardia, JVD, Murmur, S3 Respiratory: Yes: Accessory Muscle Use, On Venti-Mask, Rales, SOB on Exertion, Tachypnea Gastrointestinal: Yes: Normal Bowel Sounds ...Rectal Exam: Yes: Deferred Genitourinary: Yes: WNL Breast(s): Yes: WNL Edema: LLE: 1+, RLE: 1+ Wound/Incision: Yes: Dressing Dry and Intact Neurological: Yes: Alert, Oriented Labs: CBC, BMP 11/18/16 06:35 11/18/16 06:35 INR, PTT INR 1.51 (0.82-1.09) H 11/18/16 06:35 Problem List - Problems (1) Bacteremia Code(s): R78.81 - BACTEREMIA (2) Cellulitis Code(s): L03.90 - CELLULITIS, UNSPECIFIED (3) Heart valve replaced Code(s): Z95.2 - PRESENCE OF PROSTHETIC HEART VALVE (4) Renal insufficiency Code(s): N28.9 - DISORDER OF KIDNEY AND URETER, UNSPECIFIED (5) Supratherapeutic INR Code(s): R79.1 - ABNORMAL COAGULATION PROFILE (6) Atrial fibrillation Code(s): I48.91 - UNSPECIFIED ATRIAL FIBRILLATION Qualifiers: Atrial fibrillation type: persistent Qualified Code(s): I48.1 - Persistent atrial fibrillation Assessment/Plan Current Active Problems STEVE (acute kidney injury) (Acute) Anemia (Acute) Anxiety about health (Acute) Bacteremia (Acute) Cellulitis (Acute) Heart valve replaced (Acute) Pneumonia (Acute) Rectal bleed (Acute) Renal insufficiency (Acute) Supratherapeutic INR (Acute) MVR sever Abnormal Lab Results 11/17/16 11/18/16 11/18/16 23:00 06:35 06:35 WBC RBC Hgb Hct RDW Neutrophils % Lymphocytes % Monocytes % Nucleated RBCs INR 1.51 H PTT (Actin FS) 71.0 H D 82.4 H Sodium Chloride BUN Creatinine Random Glucose Total Bilirubin Alkaline Phosphatase Albumin 11/18/16 11/18/16 06:35 06:35 WBC 15.8 H RBC 3.32 L Hgb 9.6 L Hct 28.2 L RDW 17.6 H Neutrophils % 90.0 H Lymphocytes % 4.0 L D Monocytes % 2.0 L Nucleated RBCs 1 H INR PTT (Actin FS) Sodium 131 L Chloride 92 L BUN 52 H Creatinine 1.8 H Random Glucose 134 H Total Bilirubin 1.5 H D Alkaline Phosphatase 205 H Albumin 3.3 L Laboratory Results - last 24 hr 11/15/16 11/17/16 11/17/16 07:25 06:40 11:00 WBC RBC Hgb Hct MCV MCH MCHC RDW Plt Count MPV Neutrophils % Lymphocytes % Monocytes % Eosinophils % Metamyelocytes Myelocytes Nucleated RBCs Differential Comment Platelet Estimate INR PTT (Actin FS) Sodium Potassium Chloride Carbon Dioxide Anion Gap BUN Creatinine Creat Clearance w eGFR Random Glucose Calcium 9.9 Total Bilirubin AST ALT Alkaline Phosphatase Total Protein Albumin PTH Intact 29 PTH Intact Intraop 0 m Cortisol AM Sample 15.1 Urine Color Yellow Urine Appearance Clear Urine pH 5.0 Ur Specific [place] 1.010 Urine Protein Negative Urine Glucose (UA) Negative Urine Ketones Negative Urine Blood Negative Urine Nitrite Negative Urine Bilirubin Negative Urine Urobilinogen Negative Ur Leukocyte Esterase Negative Gentamicin Trough 11/17/16 11/18/16 11/18/16 23:00 06:35 06:35 WBC RBC Hgb Hct MCV MCH MCHC RDW Plt Count MPV Neutrophils % Lymphocytes % Monocytes % Eosinophils % Metamyelocytes Myelocytes Nucleated RBCs Differential Comment Platelet Estimate INR PTT (Actin FS) 71.0 H D 82.4 H Sodium Potassium Chloride Carbon Dioxide Anion Gap BUN Creatinine Creat Clearance w eGFR Random Glucose Calcium Total Bilirubin AST ALT Alkaline Phosphatase Total Protein Albumin PTH Intact PTH Intact Intraop 0 m Cortisol AM Sample Urine Color Urine Appearance Urine pH Ur Specific [place] Urine Protein Urine Glucose (UA) Urine Ketones Urine Blood Urine Nitrite Urine Bilirubin Urine Urobilinogen Ur Leukocyte Esterase Gentamicin Trough 1.1 11/18/16 11/18/16 11/18/16 06:35 06:35 06:35 WBC 15.8 H RBC 3.32 L Hgb 9.6 L Hct 28.2 L MCV 84.8 MCH 28.8 MCHC 34.0 RDW 17.6 H Plt Count 157 MPV 8.2 Neutrophils % 90.0 H Lymphocytes % 4.0 L D Monocytes % 2.0 L Eosinophils % 1.0 Metamyelocytes 2 Myelocytes 1 Nucleated RBCs 1 H Differential Comment Manual diff done Platelet Estimate Adequate INR 1.51 H PTT (Actin FS) Sodium 131 L Potassium 4.4 Chloride 92 L Carbon Dioxide 23 D Anion Gap 16 BUN 52 H Creatinine 1.8 H Creat Clearance w eGFR 38.42 Random Glucose 134 H Calcium 9.6 Total Bilirubin 1.5 H D AST 29 ALT 15 Alkaline Phosphatase 205 H Total Protein 7.5 Albumin 3.3 L PTH Intact PTH Intact Intraop 0 m Cortisol AM Sample Urine Color Urine Appearance Urine pH Ur Specific [place] Urine Protein Urine Glucose (UA) Urine Ketones Urine Blood Urine Nitrite Urine Bilirubin Urine Urobilinogen Ur Leukocyte Esterase Gentamicin Trough acute chf endocarditis history Plan; iv lasix oxygen iv dobutamine urgent surgery consult [facility] Current Medications Generic Name Dose Route Start Last Admin Trade Name Freq PRN Reason Stop Dose Admin Acetaminophen 650 mg 11/13/16 12:29 11/13/16 13:16 Tylenol - PO 650 mg Q4H PRN Administration FEVER OR PAIN Albumin Human 12.5 gm 11/17/16 18:00 11/18/16 06:33 Albumin Human 25% IVPB 11/20/16 06:01 12.5 gm Q12H SID Administration Albuterol/Ipratropium 1 amp 11/18/16 14:01 11/18/16 14:40 Duoneb - NEB Not Given Q4HPO SID Alprazolam 0.25 mg 11/15/16 18:27 11/18/16 10:30 Xanax - PO 0.25 mg Q8H PRN Administration ANXIETY Amiodarone HCl 200 mg 11/13/16 10:00 11/18/16 10:30 Cordarone - PO 200 mg DAILY SID Administration Doxycycline Hyclate 100 mg 11/13/16 18:00 11/18/16 10:31 Vibramycin - PO 100 mg BID@1000,1800 SID Administration Furosemide 80 mg 11/18/16 22:00 Lasix Injection - IVPUSH TID SID Heparin Sodium (Porcine) 1,000 unit 11/14/16 11:57 11/17/16 10:42 Heparin - IVPUSH 1,000 unit PRN PRN Administration Heparin Heparin Sodium (Porcine) 5,000 unit 11/14/16 11:57 11/15/16 09:46 Heparin - IVPUSH 5,000 unit PRN PRN Administration Heparin Heparin Sodium/Dextrose 500 mls @ 20 mls/hr 11/14/16 12:00 11/18/16 12:44 Heparin Infusion - IVPB 36 mls/hr TITR SID Administration Protocol 1,000 UNITS/HR Ceftriaxone Sodium 100 mls @ 200 mls/hr 11/17/16 10:00 11/18/16 12:09 Rocephin 2gm Ivpb (Pre-Docked) IVPB 200 mls/hr DAILY SID Administration Gentamicin Sulfate 90 mg/ 102.25 mls @ 100 mls/hr 11/17/16 10:00 11/18/16 10:31 Sodium Chloride IVPB 100 mls/hr DAILY SID Administration Dobutamine HCl/Dextrose 250 mls @ 26.416 mls/hr 11/18/16 16:45 11/18/16 17:17 Dobutamine 250 Mg/D5w - IV 26.416 mls/hr TITR SID Administration Protocol 5 MCG/KG/MIN Potassium Chloride 20 meq 11/13/16 10:00 11/18/16 10:30 K-Dur - PO 20 meq BID SID Administration Spironolactone 50 mg 11/13/16 10:00 11/18/16 10:31 Aldactone - PO Not Given DAILY [facility] Warfarin Sodium 5 mg 11/17/16 18:00 11/17/16 17:44 Coumadin - PO 5 mg DAILY@1800 SID Administration Zolpidem Tartrate 10 mg 11/16/16 23:00 11/17/16 22:59 Ambien - PO 10 mg HS PRN Administration
[2016-11-18] MEDS: WARFARIN NA 5 MG TABLET (UD) PO SCH (18:03)
[2016-11-18] MEDS: SILVER SULFADIAZINE 1% TOP CREAM 50 GM JAR TP SCH (18:30)
--- NOTE | 2016-11-18 19:07 | CONSULT ---
Consultation: Specialty: Critical Care REQUESTING PROVIDER: Garland Mcdaniel CONSULT REQUEST: We have been asked to medically evaluate this patient for Critical Care HISTORY OF PRESENT ILLNESS: Briefly, 61 yo M with h/o A-fib s/p ablations x 2 on amiodarone and coumadin, mechanical valve replacement (aortic and mitral), endocarditis, combined systolic and diastolic CHF, COPD admitted to the hospital through ER for acute on chronic CHF exacerbation and supratherapeutic INR. During hospital admission , patient's blood culture was positive in the setting of mechanical valves replacement. VIDA was subsequently performed and showed suspected vegetation on mitral valve leaflet with severe mitral regurg. Patient was transferred to the unit on dobutamine gtt and heparin gtt pending transfer to [place] for valve replacement. He denies active chest pain, n/v, fever, chills, urinary and bowel symptoms. Past Medical History Cardio/Vascular AFIB (AVR/MVR),CHF,HTN,Hyperlipdemia,Other Pulmonary COPD Renal/ Renal Inusuff Heme/Onc Anemia Infectious Disease Other (H/O ENDOCARDITIS) Past Surgical History Valve Replacement both aortic and mitral, mechanical, done [address] Kelly at [facility]. Social History Smoking history Former smoker Have you smoked in the past 12 No months Hx Alcohol Use No Home Medications Medication Instructions Recorded Metolazone [Zaroxolyn] 2.5 mg PO ASDIR PRN 06/21/15 Metoprolol Succinate [Toprol XL -] 50 mg PO BID 06/21/15 Simvastatin [Zocor -] 20 mg PO HS 06/21/15 Warfarin Sodium [Coumadin] 5 mg PO HS 06/21/15 Amiodarone HCl [Cordarone -] 200 mg PO DAILY 10/29/15 Furosemide [Lasix -] 80 mg PO BID 11/28/15 Potassium Chloride [K-Dur -] 20 meq PO DAILY 11/28/15 Spironolactone 50 mg PO DAILY #30 tablet 11/28/15 Zolpidem Tartrate [Ambien] 10 mg PO HS 11/28/15 REVIEW OF SYSTEMS: CONSTITUTIONAL: Absent: fever, chills, diaphoresis, generalized weakness, malaise, loss of appetite, weight change HEENT: Absent: rhinorrhea, nasal congestion, throat pain, throat swelling, difficulty swallowing, mouth swelling, ear pain, eye pain, visual changes CARDIOVASCULAR: Absent: chest pain, syncope, palpitations, irregular heart rate, lightheadedness , peripheral edema RESPIRATORY: shortness of breath Absent: cough, dyspnea with exertion, orthopnea, wheezing, stridor, hemoptysis GASTROINTESTINAL: Absent: abdominal pain, abdominal distension, nausea, vomiting, diarrhea, constipation, melena, hematochezia GENITOURINARY: Absent: dysuria, frequency, urgency, hesitancy, hematuria, flank pain, genital pain MUSCULOSKELETAL: Absent: myalgia, arthralgia, joint swelling, back pain, neck pain SKIN: Absent: rash, itching, pallor HEMATOLOGIC/IMMUNOLOGIC: Absent: easy bleeding, easy bruising, lymphadenopathy, frequent infections ENDOCRINE: Absent: unexplained weight gain, unexplained weight loss, heat intolerance, cold intolerance NEUROLOGIC: Absent: headache, focal weakness or paresthesias, dizziness, unsteady gait, seizure, mental status changes, bladder or bowel incontinence PSYCHIATRIC: Absent: anxiety, depression, suicidal or homicidal ideation, hallucinations. PHYSICAL EXAMINATION Last Vital Signs Temp Pulse Resp BP Pulse Ox 97.9 F 107 H 39 H 105/73 98 11/18/16 17:01 11/18/16 17:01 11/18/16 17:01 11/18/16 17:01 11/18/16 11:08 GENERAL: AAOx3, sitting up in bed, appears tired, unable to speak in full sentences, in moderate respiratory distress on 100% face mask EYES: Pupils equal, round and reactive to light, sclera anicteric, conjunctiva clear NECK: +JVD LUNGS: Poor air entry, bibasilar crackles with accessory muscles use HEART: Tachycardic, normal S1 and S2 without murmur, rub or gallop. ABDOMEN: Soft, nontender, not distended, normoactive bowel sounds, no guarding, no rebound, no masses. +hepatojugular reflux MUSCULOSKELETAL: Normal range of motion at all joints. No bony deformities or tenderness. No CVA tenderness. EXTREMITIES: Trace edema in LLE with +1 peripheral pulse; dressing in place on RLE, scaling and shedding of dry skin, faint pulse SKIN: cold and wet CBCD WBC 15.8 K/mm3 (4.0-10.0) H 11/18/16 06:35 RBC 3.32 M/mm3 (4.00-5.60) L 11/18/16 06:35 Hgb 9.6 GM/dL (11.7-16.9) L 11/18/16 06:35 Hct 28.2 % (35.4-49) L 11/18/16 06:35 MCV 84.8 fl (80-96) 11/18/16 06:35 MCHC 34.0 g/dl (32.0-35.9) 11/18/16 06:35 RDW 17.6 % (11.9-15.9) H 11/18/16 06:35 Plt Count 157 K/MM3 (134-434) 11/18/16 06:35 MPV 8.2 fl (7.5-11.1) 11/18/16 06:35 CMP Sodium 131 mmol/L (136-145) L 11/18/16 06:35 Potassium 4.4 mmol/L (3.5-5.1) 11/18/16 06:35 Chloride 92 mmol/L (98-107) L 11/18/16 06:35 Carbon Dioxide 23 mmol/L (21-32) D 11/18/16 06:35 Anion Gap 16 (8-16) 11/18/16 06:35 BUN 52 mg/dL (7-18) H 11/18/16 06:35 Creatinine 1.8 mg/dL (0.7-1.3) H 11/18/16 06:35 Creat Clearance w eGFR 38.42 (>60) 11/18/16 06:35 Calcium 9.6 mg/dL (8.5-10.1) 11/18/16 06:35 Total Bilirubin 1.5 mg/dL (0.2-1.0) H D 11/18/16 06:35 AST 29 U/L (15-37) 11/18/16 06:35 ALT 15 U/L (12-78) 11/18/16 06:35 Alkaline Phosphatase 205 U/L (45-117) H 11/18/16 06:35 Total Protein 7.5 g/dl (6.4-8.2) 11/18/16 06:35 Albumin 3.3 g/dl (3.4-5.0) L 11/18/16 06:35 Urine Test Results Urine Color Yellow 11/17/16 11:00 Urine Appearance Clear 11/17/16 11:00 Urine pH 5.0 (5.0-8.0) 11/17/16 11:00 Ur Specific [place] 1.010 (1.005-1.025) 11/17/16 11:00 Urine Protein Negative (NEGATIVE) 11/17/16 11:00 Urine Glucose (UA) Negative (NEGATIVE) 11/17/16 11:00 Urine Ketones Negative (NEGATIVE) 11/17/16 11:00 Urine Blood Negative (NEGATIVE) 11/17/16 11:00 Urine Nitrite Negative (NEGATIVE) 11/17/16 11:00 Urine Bilirubin Negative (NEGATIVE) 11/17/16 11:00 Ur Leukocyte Esterase Negative (NEGATIVE) 11/17/16 11:00 Intake & Output 11/15/16 11/16/16 11/17/16 11/18/16 23:59 23:59 23:59 23:59 Intake Total 2018 1844 2423 1112 Output Total 555 751 8559 Balance 5429 543 7807 12 Weight 87.543 kg 87.09 kg 87.997 kg 91.342 kg Microbiology 11/15/16 07:30 Blood Culture - Preliminary Blood - Peripheral Venous NO GROWTH OBTAINED AFTER 72 HOURS, INCUBATION TO CONTINUE FOR 2 DAYS. 11/15/16 07:15 Blood Culture - Preliminary Blood - Peripheral Venous NO GROWTH OBTAINED AFTER 72 HOURS, INCUBATION TO CONTINUE FOR 2 DAYS. 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 Cardio: Cardiogenic shock - 2/2 acute decompensated heart failure - "Cold and Wet" clinically - On inotrope (dobutamine) gtt to increase CO and reduce SVR * Maintain MAP > 65 - Lasix 80mg IV TID - Spironolactone held due to hypotension A-fib - On amiodarone - Cont. 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 vibramycin, rocephin, and gentamicin - Transfer to [place] for valve replacement FEN - No IVF - Hyponatremia, renal on board, cont. to follow - NPO for now Prophylaxis - DVT: on heparin gtt - GI: not indicated Dispo - Cont. to monitor in ICU - Pending bed availability at [facility]ctor [facility] ICU Resident PGY-2 Pager: [phone] Visit type - Emergency Visit Emergency Visit: No - New Patient This patient is new to me today: Yes Date on this admission: 11/18/16 - Critical Care Critical Care patient: Yes Total Critical Care Time (in minutes): 30 Critical Care Statement: The care of this patient involved high complexity decision making to prevent further life threatening deterioration of the patient 's condition and/or to evalute & treat vital organ system(s) failure or risk of failure.
[2016-11-18] MEDS: DOBUTAMINE 250 MG/D5W - 250 ML IV SCH (19:24)
[2016-11-18] MEDS ORDERED: PT OWN MED DRAWER 7, Y5N ONE (22:08)
[2016-11-18] MEDS: ACETAMINOPHEN 325 MG TABLET (FP) PO PRN (22:13)
[2016-11-18] MEDS: ZOLPIDEM TARTRATE 5 MG TABLET PO PRN (22:13)
--- NOTE | 2016-11-18 23:19 | PN ---
Progress Note (short form) - Note Progress Note: Progress Note: Seen and examined in ICU -seen by our service today for pulm -in afternoon went for VIDA, found to have vegitation on MV with severe MR -Started on dobutamine for inotropic support, with alb and lasix -transfer called in for [place], pending bed avail CC: dyspnea CXR : mild decrease but persistent Pulmonary Vascular congestion Right > Left / left pleural effusion Vital Signs Temp 97.9 F 11/18/16 17:01 Pulse 109 H 11/18/16 21:00 Resp 27 H 11/18/16 21:00 BP 99/64 11/18/16 21:00 Pulse Ox 100 11/18/16 21:00 Intake & Output 11/17/16 11/18/16 11/18/16 23:59 11:59 23:59 Intake Total 1730 507 605 Output Total 900 400 Balance 1730 -393 205 Weight 88.054 kg 91.342 kg Intake: IV 330 407 355 Heparin Infusion - 500 ml 330 407 255 @ 1,000 UNITS/HR 20 mls/ hr IVPB TITR [facility] Rx#: [id number] IVPB 200 100 200 Oral 1200 0 50 Output: Urine 900 400 Void 900 400 Other: Voiding Method Urinal Toilet Bedpan Bowel Movement No No Yes Weight Measurement Method Standing Scale [facility] Active Medications Acetaminophen (Tylenol -) 650 mg PO Q4H PRN PRN Reason: FEVER OR PAIN Last Admin: 11/18/16 22:13 Dose: 650 mg Albumin Human (Albumin Human 25%) 12.5 gm IVPB Q12H [facility] Stop: 11/20/16 06:01 Last Admin: 11/18/16 22:11 Dose: 12.5 gm Albuterol/Ipratropium (Duoneb -) 1 amp NEB Q4HPO [facility] Last Admin: 11/18/16 21:54 Dose: 1 amp Amiodarone HCl (Cordarone -) 200 mg PO DAILY [facility] Last Admin: 11/18/16 10:30 Dose: 200 mg Doxycycline Hyclate (Vibramycin -) 100 mg PO BID@1000,1800 [facility] Last Admin: 11/18/16 22:13 Dose: 100 mg Furosemide (Lasix Injection -) 80 mg IVPUSH TID [facility] Last Admin: 11/18/16 22:13 Dose: 80 mg Heparin Sodium (Porcine) (Heparin -) 1,000 unit IVPUSH PRN PRN PRN Reason: Heparin Last Admin: 11/17/16 10:42 Dose: 1,000 unit Heparin Sodium (Porcine) (Heparin -) 5,000 unit IVPUSH PRN PRN PRN Reason: Heparin Last Admin: 11/15/16 09:46 Dose: 5,000 unit Heparin Sodium/Dextrose (Heparin Infusion -) 500 mls @ 20 mls/hr IVPB TITR SID ; 1,000 UNITS/HR PRN Reason: Protocol Last Admin: 11/18/16 12:44 Dose: 36 mls/hr Ceftriaxone Sodium (Rocephin 2gm Ivpb (Pre-Docked)) 100 mls @ 200 mls/hr IVPB DAILY [facility] Last Admin: 11/18/16 12:09 Dose: 200 mls/hr Gentamicin Sulfate 90 mg/ (Sodium Chloride) 102.25 mls @ 100 mls/hr IVPB DAILY [facility] Last Admin: 11/18/16 10:31 Dose: 100 mls/hr Dobutamine HCl/Dextrose (Dobutamine 250 Mg/D5w -) 250 mls @ 26.416 mls/hr IV TITR SID; 5 MCG/KG/MIN PRN Reason: Protocol Last Admin: 11/18/16 19:24 Dose: 26.416 mls/hr Potassium Chloride (K-Dur -) 20 meq PO BID [facility] Last Admin: 11/18/16 22:13 Dose: 20 meq Silver Sulfadiazine (Silvadene -) 1 applic TP DAILY [facility] Last Admin: 11/18/16 18:30 Dose: 1 applic Spironolactone (Aldactone -) 50 mg PO DAILY [facility] Last Admin: 11/18/16 10:31 Dose: Not Given Warfarin Sodium (Coumadin -) 5 mg PO DAILY@1800 [facility] Last Admin: 11/18/16 18:03 Dose: Not Given Zolpidem Tartrate (Ambien -) 10 mg PO HS PRN Last Admin: 11/18/16 22:13 Dose: 10 mg Constitutional: Yes: Awake and alert, mild resp distress Eyes: Yes: WNL HENT: Yes: WNL Neck: Yes: + RVP Cardiovascular: Yes: Pulse Irregular, S1, S2 Respiratory: Yes: rales in bases bilaterally Gastrointestinal: Yes: Normal Bowel Sounds, Soft Extremities: Yes: WNL Edema: Yes Lab Results WBC 15.8 K/mm3 (4.0-10.0) H 11/18/16 06:35 RBC 3.32 M/mm3 (4.00-5.60) L 11/18/16 06:35 Hgb 9.6 GM/dL (11.7-16.9) L 11/18/16 06:35 Hct 28.2 % (35.4-49) L 11/18/16 06:35 MCV 84.8 fl (80-96) 11/18/16 06:35 MCHC 34.0 g/dl (32.0-35.9) 11/18/16 06:35 RDW 17.6 % (11.9-15.9) H 11/18/16 06:35 Plt Count 157 K/MM3 (134-434) 11/18/16 06:35 Sodium 131 mmol/L (136-145) L 11/18/16 06:35 Potassium 4.4 mmol/L (3.5-5.1) 11/18/16 06:35 Chloride 92 mmol/L (98-107) L 11/18/16 06:35 Carbon Dioxide 23 mmol/L (21-32) D 11/18/16 06:35 Anion Gap 16 (8-16) 11/18/16 06:35 BUN 52 mg/dL (7-18) H 11/18/16 06:35 Creatinine 1.8 mg/dL (0.7-1.3) H 11/18/16 06:35 Random Glucose 134 mg/dL (74-106) H 11/18/16 06:35 Calcium 9.6 mg/dL (8.5-10.1) 11/18/16 06:35 INR 1.51 (0.82-1.09) H 11/18/16 06:35 Assessment/Plan Problem List - Problems (1) Anemia Code(s): D64.9 - ANEMIA, UNSPECIFIED Qualifiers: Anemia type: unspecified type Qualified Code(s): D64.9 - Anemia, unspecified (2) Cellulitis Code(s): L03.90 - CELLULITIS, UNSPECIFIED (3) Heart valve replaced Code(s): Z95.2 - PRESENCE OF PROSTHETIC HEART VALVE (4) Pneumonia Code(s): J18.9 - PNEUMONIA, UNSPECIFIED ORGANISM (5) Supratherapeutic INR Code(s): R79.1 - ABNORMAL COAGULATION PROFILE (6) Atrial fibrillation Code(s): I48.91 - UNSPECIFIED ATRIAL FIBRILLATION Qualifiers: Atrial fibrillation type: persistent Qualified Code(s): I48.1 - Persistent atrial fibrillation (7) CHF (congestive heart failure) Code(s): I50.9 - HEART FAILURE, UNSPECIFIED Qualifiers: Congestive heart failure type: unspecified congestive heart failure type Congestive heart failure chronicity: unspecified congestive heart failure chronicity Qualified Code(s): I50.9 - Heart failure, unspecified (8) Bacteremia Code(s): R78.81 - BACTEREMIA Assessment/Plan inotropic diuresis, Lasix BID with albumin ABX per ID, will need 6wks of therapy at min cont amiodarone O2 as needed BD TX AC for AFib with heparin gtt, pending possible surgery, therapeutic goal Cedrick Miller [facility] [address]
[2016-11-19 00:07] LABS: A/G RATIO 0.9 (0.7-1.7); ALBUMIN 3.5 g/dL (2.9-4.4); M-SPIKE Not Observed g/dL (Not Observed); TOTAL PROTEIN 7.5 g/dL (6.0-8.5)
[2016-11-19] MEDS: ALBUTEROL SO4 2.5/IPRATROPIUM 0.5 INH SOL 3 ML VIAL.NEB. NEB SCH ×3 (01:59→09:50)
[2016-11-19] MEDS: ACETAMINOPHEN 325 MG TABLET (FP) PO PRN (02:26)
[2016-11-19] MEDS ORDERED: LIDOCAINE HCL 2% JELLY (30 ML/TUBE) TP ONE (05:35)
[2016-11-19 06:23] LABS: MCH 28.6 pg (25.7-33.7); MCHC 33.2 g/dl (32.0-35.9); MEAN PLT VOLUME 8.4 fl (7.5-11.1); PLATELET COUNT 138 K/MM3 (134-434); RDW 17.8 % (11.9-15.9); WHITE BLOOD COUNT 15.2 K/mm3 (4.0-10.0)
[2016-11-19 06:55] LABS: INR 1.81 (0.82-1.09); PROTHROMBIN TIME (PATIENT) 20.1 SEC (9.98-11.88)
[2016-11-19] MEDS: ALBUMIN HUMAN 25% 12.5 GM/50 ML VIAL IVPB SCH (07:15)
[2016-11-19] MEDS: FUROSEMIDE 40 MG/4 ML INJECTABLE VIAL IVPUSH SCH ×2 (07:16)
--- NOTE | 2016-11-19 07:19 | PN ---
Progress Note, Physician Chief Complaint: ID Alert but very dyspneic Going to "tire out" Antibiotics Ceftriaxone & low dose Gentamicin ( Doxy) Received message that he has vegetations on the MV with severe MR per VIDA - Current Medication List Current Medications: Active Medications Acetaminophen (Tylenol -) 650 mg PO Q4H PRN PRN Reason: FEVER OR PAIN Last Admin: 11/19/16 02:26 Dose: 650 mg Albumin Human (Albumin Human 25%) 12.5 gm IVPB Q12H [facility] Stop: 11/20/16 06:01 Last Admin: 11/18/16 22:11 Dose: 12.5 gm Albuterol/Ipratropium (Duoneb -) 1 amp NEB Q4HPO [facility] Last Admin: 11/19/16 06:31 Dose: 1 amp Amiodarone HCl (Cordarone -) 200 mg PO DAILY [facility] Last Admin: 11/18/16 10:30 Dose: 200 mg Doxycycline Hyclate (Vibramycin -) 100 mg PO BID@1000,1800 [facility] Last Admin: 11/18/16 22:13 Dose: 100 mg Furosemide (Lasix Injection -) 80 mg IVPUSH TID [facility] Last Admin: 11/18/16 22:13 Dose: 80 mg Heparin Sodium (Porcine) (Heparin -) 1,000 unit IVPUSH PRN PRN PRN Reason: Heparin Last Admin: 11/17/16 10:42 Dose: 1,000 unit Heparin Sodium (Porcine) (Heparin -) 5,000 unit IVPUSH PRN PRN PRN Reason: Heparin Last Admin: 11/15/16 09:46 Dose: 5,000 unit Heparin Sodium/Dextrose (Heparin Infusion -) 500 mls @ 20 mls/hr IVPB TITR SID ; 1,000 UNITS/HR PRN Reason: Protocol Last Admin: 11/18/16 12:44 Dose: 36 mls/hr Ceftriaxone Sodium (Rocephin 2gm Ivpb (Pre-Docked)) 100 mls @ 200 mls/hr IVPB DAILY [facility] Last Admin: 11/18/16 12:09 Dose: 200 mls/hr Gentamicin Sulfate 90 mg/ (Sodium Chloride) 102.25 mls @ 100 mls/hr IVPB DAILY [facility] Last Admin: 11/18/16 10:31 Dose: 100 mls/hr Dobutamine HCl/Dextrose (Dobutamine 250 Mg/D5w -) 250 mls @ 26.416 mls/hr IV TITR SID; 5 MCG/KG/MIN PRN Reason: Protocol Last Admin: 11/18/16 19:24 Dose: 26.416 mls/hr Potassium Chloride (K-Dur -) 20 meq PO BID [facility] Last Admin: 11/18/16 22:13 Dose: 20 meq Silver Sulfadiazine (Silvadene -) 1 applic TP DAILY [facility] Last Admin: 11/18/16 18:30 Dose: 1 applic Spironolactone (Aldactone -) 50 mg PO DAILY [facility] Last Admin: 11/18/16 10:31 Dose: Not Given Warfarin Sodium (Coumadin -) 5 mg PO DAILY@1800 [facility] Last Admin: 11/18/16 18:03 Dose: Not Given Zolpidem Tartrate (Ambien -) 10 mg PO HS PRN Last Admin: 11/18/16 22:13 Dose: 10 mg - Objective Vital Signs: Vital Signs Temperature 98.4 F 11/19/16 02:00 Pulse Rate 104 H 11/19/16 02:00 Respiratory Rate 20 11/19/16 02:00 Blood Pressure 93/64 11/19/16 02:00 O2 Sat by Pulse Oximetry (%) 100 11/18/16 21:00 Constitutional: Yes: Severe Distress Eyes: Yes: WNL, Conjunctiva Clear HENT: No: WNL, Atraumatic Neck: No: WNL, Supple Cardiovascular: Yes: Tachycardia, Pulse Irregular, S1, S2 Respiratory: Yes: Rhonchi, Other (Rales right lung) Gastrointestinal: Yes: WNL, Normal Bowel Sounds, Soft. No: Tenderness, Tenderness, Rebound Extremities: Yes: Other (Right leg dressing) Edema: No Labs: CBC, BMP 11/19/16 05:15 INR, PTT INR 1.81 (0.82-1.09) H 11/19/16 05:15 Problem List - Problems (1) Streptococcus viridans infection Code(s): A49.1 - STREPTOCOCCAL INFECTION, UNSPECIFIED SITE (2) Prosthetic valve endocarditis Code(s): T82.6XXA - INFECT/INFLM REACTION DUE TO CARDIAC VALVE PROSTHESIS, INIT (3) Heart valve replaced Code(s): Z95.2 - PRESENCE OF PROSTHETIC HEART VALVE Assessment/Plan Microbiology 11/12/16 23:49 Blood - Peripheral Venous Blood Culture - Final Viridans Streptococcus Group 11/12/16 23:49 Blood - Peripheral Venous Blood Culture - Final Viridans Streptococcus Group 11/12/16 20:29 Urine - Urine Clean Catch Urine Culture - Final NO GROWTH OBTAINED 11/15/16 07:30 Blood - Peripheral Venous Blood Culture - Preliminary NO GROWTH OBTAINED AFTER 72 HOURS, INCUBATION TO CONTINUE FOR 2 DAYS. 11/15/16 07:15 Blood - Peripheral Venous Blood Culture - Preliminary NO GROWTH OBTAINED AFTER 72 HOURS, INCUBATION TO CONTINUE FOR 2 DAYS. Laboratory Tests 11/18/16 11/18/16 11/19/16 06:35 06:35 05:15 WBC 15.2 H Hgb 8.2 L D Hct 24.6 L Plt Count 138 BUN 52 H Creatinine 1.8 H Creat Clearance w eGFR 38.42 Gentamicin Trough 1.1 Assessment Prosthetic valve endocarditis Strep viridans Blood cultures have cleared Severe heart failure with severe MR Atrial fibrillation Respiratory failure Acute kidney injury Plan Ceftriaxone 1 gram q 12H Gent 40mg IVPB synergy q12H Will need to stop Gentamicin if renal function continues to deteriorate Stop doxycycline Plan is transfer to [place] when bed available but would look to transfer elsewhere if there is bed available elsewhere sooner 45 minute spent providing critical care Larry TAMAYO
[2016-11-19 07:31] LABS: ALLENS TEST POSITIVE; ART PUNCT SITE LEFT BRACHIAL; ARTERIAL BLOOD GAS BASE EXCESS -1.7 meq/l (-2-2); ARTERIAL BLOOD GAS HCO3 21.9 meq/L (22-26); ARTERIAL BLOOD GAS pH 7.42 (7.35-7.45); LPM/O2% 100%; PT. ON O2? YES; TYPE OF O2 NON REBREATHER
[2016-11-19 08:09] LABS: ANION GAP 12 (8-16); CALCIUM 9.2 mg/dL (8.5-10.1); CO2 23 mmol/L (21-32); CREATININE 2.3 mg/dL (0.7-1.3); GLUCOSE,RANDOM 144 mg/dL (74-106); MAGNESIUM 1.9 mg/dL (1.8-2.4)
[2016-11-19] MEDS ORDERED: GENTAMICIN IVPB SCH (10:00)
[2016-11-19] MEDS ORDERED: WATER IVPB SCH (10:00)
[2016-11-19] MEDS ORDERED: DEXTROSE 5% IVPB SCH (10:00)
[2016-11-19] MEDS ORDERED: CEFTRIAXONE 50 ML IVPB SCH (10:00)
--- NOTE | 2016-11-19 10:29 | PN ---
Progress Note (short form) - Note Progress Note: Progress Note, Physician Chief Complaint: chf, strep viridans bacteremia History of Present Illness: c/o sob at rest presently, very nervous about current conditions denies cp, palpitations, wheezing -remains on dobutamine for bp support - Current Medication List Current Medications Generic Name Dose Route Start Last Admin Trade Name Freq PRN Reason Stop Dose Admin Acetaminophen 650 mg 11/13/16 12:29 11/19/16 02:26 Tylenol - PO 650 mg Q4H PRN Administration FEVER OR PAIN Albumin Human 12.5 gm 11/17/16 18:00 11/19/16 07:15 Albumin Human 25% IVPB 11/20/16 06:01 12.5 gm Q12H SID Administration Albuterol/Ipratropium 1 amp 11/18/16 14:01 11/19/16 09:50 Duoneb - NEB 1 amp Q4HPO SID Administration Amiodarone HCl 200 mg 11/13/16 10:00 11/18/16 10:30 Cordarone - PO 200 mg DAILY SID Administration Furosemide 80 mg 11/18/16 22:00 11/19/16 07:16 Lasix Injection - IVPUSH 80 mg TID SID Administration Heparin Sodium (Porcine) 1,000 unit 11/14/16 11:57 11/17/16 10:42 Heparin - IVPUSH 1,000 unit PRN PRN Administration Heparin Heparin Sodium (Porcine) 5,000 unit 11/14/16 11:57 11/15/16 09:46 Heparin - IVPUSH 5,000 unit PRN PRN Administration Heparin Heparin Sodium/Dextrose 500 mls @ 20 mls/hr 11/14/16 12:00 11/19/16 09:30 Heparin Infusion - IVPB 1,700 units/hr TITR SID Titration Protocol 1,000 UNITS/HR Dobutamine HCl/Dextrose 250 mls @ 26.416 mls/hr 11/18/16 19:18 11/18/16 19:24 Dobutamine 250 Mg/D5w - IV 26.416 mls/hr TITR SID Administration Protocol 5 MCG/KG/MIN Gentamicin Sulfate 40 mg/ 101 mls @ 202 mls/hr 11/19/16 10:00 Dextrose IVPB BID SID Ceftriaxone Sodium 50 mls @ 100 mls/hr 11/19/16 10:00 Rocephin 1gm Ivpb (Pre-Docked) IVPB BID SID Potassium Chloride 20 meq 11/13/16 10:00 11/18/16 22:13 K-Dur - PO 20 meq BID SID Administration Silver Sulfadiazine 1 applic 11/18/16 18:15 11/18/16 18:30 Silvadene - TP 1 applic DAILY SID Administration Spironolactone 50 mg 11/13/16 10:00 11/18/16 10:31 Aldactone - PO Not Given DAILY SID Zolpidem Tartrate 10 mg 11/16/16 23:00 11/18/16 22:13 Ambien - PO 10 mg HS PRN Administration - Objective Vital Signs: Vital Signs Temp 98.8 F 11/19/16 06:00 Pulse 108 H 11/19/16 09:00 Resp 29 H 11/19/16 09:00 BP 102/72 11/19/16 09:00 Pulse Ox 100 11/19/16 09:50 Intake & Output 11/18/16 11/18/16 11/19/16 11:59 23:59 11:59 Intake Total 507 915 434 Output Total 900 800 Balance -393 115 434 Weight 194 lb 2 oz 201 lb 6 oz 197 lb Intake: IV 407 665 434 Heparin Infusion - 500 ml 407 435 252 @ 1,000 UNITS/HR 20 mls/ hr IVPB TITR SID Rx#: [id number] Dobutamine 250 mg/D5w - 130 182 250 ml @ 5 MCG/KG/MIN 26. 416 mls/hr IV TITR SID Rx #:[id number] IVPB 100 200 Oral 0 50 Output: Urine 900 800 Void 900 800 Other: Voiding Method Toilet Bedpan Bowel Movement No Yes Weight Measurement Method Standing Scale Built in [facility] Built in [facility] Constitutional: Yes: Mild Distress Cardiovascular: Yes: Regular Rate and Rhythm ([facility] S2 click), S1, S2. No: JVD, Murmur, S3 Respiratory: Yes: Regular, scattered rhonchi, nl eff. No: Accessory Muscle Use , Rales, Wheezes Extremities: No: Cold Edema: Yes (trace in ankles) Neurological: Yes: Alert. No: Seizure Psychiatric: No: Agitated aaox3 no jaundice diaphoresis abd nt nd pos bs Labs: Laboratory Last Values WBC 15.2 K/mm3 (4.0-10.0) H 11/19/16 05:15 RBC 2.86 M/mm3 (4.00-5.60) L 11/19/16 05:15 Hgb 8.2 GM/dL (11.7-16.9) L D 11/19/16 05:15 Hct 24.6 % (35.4-49) L 11/19/16 05:15 MCV 86.0 fl (80-96) 11/19/16 05:15 MCH 28.6 pg (25.7-33.7) 11/19/16 05:15 MCHC 33.2 g/dl (32.0-35.9) 11/19/16 05:15 RDW 17.8 % (11.9-15.9) H 11/19/16 05:15 Plt Count 138 K/MM3 (134-434) 11/19/16 05:15 MPV 8.4 fl (7.5-11.1) 11/19/16 05:15 Neutrophils % 90.0 % (42.8-82.8) H 11/18/16 06:35 Lymphocytes % 4.0 % (8-40) L D 11/18/16 06:35 Monocytes % 2.0 % (3.8-10.2) L 11/18/16 06:35 Eosinophils % 1.0 % (0-4.5) 11/18/16 06:35 Basophils % 0.3 % (0-2.0) 11/14/16 07:00 Metamyelocytes 2 % (0-2) 11/18/16 06:35 Myelocytes 1 % (0-2) 11/18/16 06:35 Nucleated RBCs 1 % (0-0) H 11/18/16 06:35 Differential Comment Manual diff done 11/18/16 06:35 Platelet Estimate Adequate (NORMAL) 11/18/16 06:35 ESR 75 mm/hr (0-20) H 11/16/16 05:35 INR 1.81 (0.82-1.09) H 11/19/16 05:15 PTT (Actin FS) 85.7 SECONDS (26.9-34.4) H 11/19/16 05:15 Puncture Site Left brachial 11/19/16 07:15 ABG pH 7.42 (7.35-7.45) 11/19/16 07:15 ABG pCO2 at Pt Temp 34.3 mmHg (35-45) L 11/19/16 07:15 ABG pO2 at Pt Temp 189.0 mmHg (80-100) H* 11/19/16 07:15 ABG HCO3 21.9 meq/L (22-26) L 11/19/16 07:15 ABG O2 Sat (Measured) 100.0 % (90-98.9) H* 11/19/16 07:15 ABG O2 Content 11.6 % vol (15-22) L 11/19/16 07:15 ABG Base Excess -1.7 meq/l (-2-2) 11/19/16 07:15 Cody Test Positive 11/19/16 07:15 O2 Delivery Device Non rebreather 11/19/16 07:15 Oxygen Flow Rate 100% 11/19/16 07:15 PEEP 0.0 cmH2O 11/19/16 07:15 Sodium 129 mmol/L (136-145) L 11/19/16 05:15 Potassium 5.0 mmol/L (3.5-5.1) 11/19/16 05:15 Chloride 94 mmol/L (98-107) L 11/19/16 05:15 Carbon Dioxide 23 mmol/L (21-32) 11/19/16 05:15 Anion Gap 12 (8-16) 11/19/16 05:15 BUN 60 mg/dL (7-18) H 11/19/16 05:15 Creatinine 2.3 mg/dL (0.7-1.3) H D 11/19/16 05:15 Creat Clearance w eGFR 38.42 (>60) 11/18/16 06:35 Random Glucose 144 mg/dL (74-106) H 11/19/16 05:15 Hemoglobin A1c % 5.9 % (4.8-6.0) 11/13/16 08:05 Serum Osmolality 291 mosm/kg (278-305) 11/17/16 07:00 Lactic Acid 1.7 mmol/L (0.4-2.0) 11/19/16 08:00 Calcium 9.2 mg/dL (8.5-10.1) 11/19/16 05:15 Phosphorus 3.3 mg/dL (2.5-4.9) D 11/12/16 19:48 Magnesium 1.9 mg/dL (1.8-2.4) 11/19/16 05:15 Iron 63 ug/dL (38-169) 11/13/16 08:05 TIBC 264 ug/dL (250-450) 11/13/16 08:05 Iron Saturation 24 % (15-55) 11/13/16 08:05 Ferritin 395.970 ng/ml (16.4-293.9) H 11/13/16 08:05 Total Bilirubin 1.5 mg/dL (0.2-1.0) H D 11/18/16 06:35 AST 29 U/L (15-37) 11/18/16 06:35 ALT 15 U/L (12-78) 11/18/16 06:35 Alkaline Phosphatase 205 U/L (45-117) H 11/18/16 06:35 Creatine Kinase 31 IU/L (39-308) L 11/12/16 19:36 Troponin I < 0.02 ng/ml (0.00-0.05) D 11/12/16 19:36 C-Reactive Protein 4.6 MG/DL (0.00-0.3) H 11/16/16 05:35 B-Natriuretic Peptide 2378.84 pg/ml (5-125) H 11/13/16 08:05 Prot Electrophoresis (.) 11/17/16 13:00 Serum Total Protein 7.5 g/dL (6.0-8.5) 11/17/16 13:00 Total Protein 7.5 g/dl (6.4-8.2) 11/18/16 06:35 Albumin 3.3 g/dl (3.4-5.0) L 11/18/16 06:35 Globulin 4.0 g/dL (2.2-3.9) H 11/17/16 13:00 Albumin/Globulin Ratio 0.9 (0.7-1.7) 11/17/16 13:00 Zpzga-1-Ahbmtbggr 0.4 gm/dL (0.0-0.4) 11/17/16 13:00 Fzfyp-2-Wlznpenzw 0.6 gm/dL (0.4-1.0) 11/17/16 13:00 Beta Globulins 1.4 gm/dL (0.7-1.3) H 11/17/16 13:00 Gamma Globulins 1.7 gm/dL (0.4-1.8) 11/17/16 13:00 Triglycerides 198 mg/dL (35-160) H D 11/13/16 08:05 Cholesterol 164 mg/dL (50-200) 11/13/16 08:05 Total LDL Cholesterol 112 mg/dL (5-100) H 11/13/16 08:05 HDL Cholesterol 20 mg/dL (40-60) L D 11/13/16 08:05 Vitamin B12 937 pg/ml (180-914) H 11/13/16 08:05 TSH 0.94 uIU/ml (0.358-3.74) 11/17/16 06:40 PTH Intact 29 pg/mL (15-65) 11/15/16 07:25 PTH Intact Intraop 0 m (.) 11/15/16 07:25 Cortisol AM Sample 15.1 ug/dL (.) 11/17/16 06:40 Urine Color Yellow 11/17/16 11:00 Urine Appearance Clear 11/17/16 11:00 Urine pH 5.0 (5.0-8.0) 11/17/16 11:00 Ur Specific [place] 1.010 (1.005-1.025) 11/17/16 11:00 Urine Protein Negative (NEGATIVE) 11/17/16 11:00 Urine Glucose (UA) Negative (NEGATIVE) 11/17/16 11:00 Urine Ketones Negative (NEGATIVE) 11/17/16 11:00 Urine Blood Negative (NEGATIVE) 11/17/16 11:00 Urine Nitrite Negative (NEGATIVE) 11/17/16 11:00 Urine Bilirubin Negative (NEGATIVE) 11/17/16 11:00 Urine Urobilinogen Negative mg/dL (0.2-1.0) 11/17/16 11:00 Ur Leukocyte Esterase Negative (NEGATIVE) 11/17/16 11:00 Urine Osmolality 327 mosm/kg (300-900) 11/16/16 16:23 Ur Random Sodium 66 MMOL/L 11/16/16 16:23 Ur Random Potassium 19.0 MMOL/L 11/16/16 16:23 Ur Random Chloride 68 MMOL/L 11/16/16 16:23 Stool Occult Blood Positive (NEGATIVE) 11/17/16 16:30 Gentamicin Trough 1.1 ug/ml (0.0-2.0) 11/18/16 06:35 JUAN PABLO M-Garfield Not observed g/dL (Not Observed) 11/17/16 13:00 A. phagocytophilum DNA Negative 11/14/16 05:50 Lyme Screen IgG & IgM <0.91 ISR (0.00-0.90) 11/14/16 05:50 echo 10/2016: nl lvef, rv mod dilated, mild-mod dec rv syst fcn, mod joanne,trace mr, trace ar, sev phtn VIDA in 10/2015 showing mechancial MVR and bioprosthetic AVR, mildly reduced LVEF with global hypocontractility CT chest 11/13: RUL and RLL ground glass opacity c/w PNA > asymmetric pulm edema ; trace effusions cxr: worsening chf tele: sinus tachy est cct 35 mins a/p: endocarditis/sepsis, severe MR, acute diastolic chf due to MR: -VIDA showed moderate size echodensity near base of mitral valve leaflet, with small component that is mobile--suspect vegetation. There is also at least 1 smaller mobile echodensity adherent to the leaflet more centrally, consistent with small vegetation. There is severe mitral regurgitation, with an eccentric (posteriorly directed jet) wrapping all the way around the left atrium, and probably a second jet that is moderate to severe in its own right. -[place] [facility] -continue dobutamine for bp support while diuresing with lasix 80 iv tid -cont tele, icu monitoring -cont abx per ID Afib -Currently in SR on Amiodarone -cont AC with hep gtt, will hold coumadin for upcoming valve surgery Prior [facility] AVR, mechanical MVR -done [address] tran, per -MVR with endocarditis and sev MR, plans as above -cont AC with hep gtt, will hold coumadin for upcoming valve surgery monica: -cont dobutamine for bp support, titrate up if needed -monitor cr trend
[2016-11-19] MEDS: AMIODARONE HCL 200 MG TABLET (FP) PO SCH (10:43)
[2016-11-19] MEDS: SPIRONOLACTONE 25 MG TABLET (FP) PO SCH (10:43)
[2016-11-19] MEDS: POTASSIUM CHLORIDE TABS 20 MEQ TABLET.ER (FP) PO SCH (10:44)
[2016-11-19] MEDS: DOBUTAMINE 250 MG/D5W - 250 ML IV SCH (10:44)
[2016-11-19] MEDS: SILVER SULFADIAZINE 1% TOP CREAM 50 GM JAR TP SCH (10:47)
[2016-11-19 11:23] VITALS: TEMP 97.6
--- NOTE | 2016-11-19 11:25 | PN ---
Progress Note (short form) - Note Progress Note: Patient seen and examined in the ICU. Awake and alert. Placed on NIPPV overnight due to increased WOB. Noted that on VIDA at least 2 vegetations were noted in the Mitral Valve. He started on Dobutamine 5 mcq/kg/min last night. Hemodynamics have been stable. No CP. CXR: Some increase in CHF pattern / no clear infiltrate. Intake & Output 11/16/16 11/17/16 11/18/16 11/19/16 23:59 23:59 23:59 23:59 Intake Total 1844 2423 1422 434 Output Total 970 1700 Balance 874 2423 -278 434 Weight 192 lb 194 lb 201 lb 6 oz 197 lb Last Vital Signs Temp Pulse Resp BP Pulse Ox 97.6 F 100 H 24 96/79 100 11/19/16 11:00 11/19/16 11:00 11/19/16 11:00 11/19/16 11:00 11/19/16 11:23 Active Medications Acetaminophen (Tylenol -) 650 mg PO Q4H PRN PRN Reason: FEVER OR PAIN Last Admin: 11/19/16 02:26 Dose: 650 mg Albumin Human (Albumin Human 25%) 12.5 gm IVPB Q12H SID Stop: 11/20/16 06:01 Last Admin: 11/19/16 07:15 Dose: 12.5 gm Albuterol/Ipratropium (Duoneb -) 1 amp NEB Q4HPO SID Last Admin: 11/19/16 09:50 Dose: 1 amp Amiodarone HCl (Cordarone -) 200 mg PO DAILY [facility] Last Admin: 11/19/16 10:43 Dose: 200 mg Furosemide (Lasix Injection -) 80 mg IVPUSH TID SID Last Admin: 11/19/16 07:16 Dose: 80 mg Heparin Sodium (Porcine) (Heparin -) 1,000 unit IVPUSH PRN PRN PRN Reason: Heparin Last Admin: 11/17/16 10:42 Dose: 1,000 unit Heparin Sodium (Porcine) (Heparin -) 5,000 unit IVPUSH PRN PRN PRN Reason: Heparin Last Admin: 11/15/16 09:46 Dose: 5,000 unit Heparin Sodium/Dextrose (Heparin Infusion -) 500 mls @ 20 mls/hr IVPB TITR SID ; 1,000 UNITS/HR PRN Reason: Protocol Last Titration: 11/19/16 09:30 Dose: 1,700 units/hr Dobutamine HCl/Dextrose (Dobutamine 250 Mg/D5w -) 250 mls @ 26.416 mls/hr IV TITR SID; 5 MCG/KG/MIN PRN Reason: Protocol Last Admin: 11/19/16 10:44 Dose: 26.416 mls/hr Gentamicin Sulfate 40 mg/ (Dextrose) 101 mls @ 202 mls/hr IVPB BID SID Last Admin: 11/19/16 10:58 Dose: 202 mls/hr Ceftriaxone Sodium (Rocephin 1gm Ivpb (Pre-Docked)) 50 mls @ 100 mls/hr IVPB BID SID Last Admin: 11/19/16 10:44 Dose: 100 mls/hr Potassium Chloride (K-Dur -) 20 meq PO BID SID Last Admin: 11/19/16 10:44 Dose: Not Given Silver Sulfadiazine (Silvadene -) 1 applic TP DAILY SID Last Admin: 11/19/16 10:47 Dose: 1 applic Spironolactone (Aldactone -) 50 mg PO DAILY SID Last Admin: 11/19/16 10:43 Dose: 50 mg Zolpidem Tartrate (Ambien -) 10 mg PO HS PRN Last Admin: 11/18/16 22:13 Dose: 10 mg Constitutional: Yes: Awake and alert, on NIPPV Eyes: Yes: WNL HENT: Yes: WNL Neck: Yes: WNL Cardiovascular: Yes: Pulse Irregular, S1, S2 Respiratory: Yes: Bibasilar Rales, no wheezing Gastrointestinal: Yes: Normal Bowel Sounds, Soft Extremities: Yes: WNL Edema: Yes Labs: Laboratory Results - last 24 hr 11/15/16 11/17/16 11/19/16 07:25 13:00 05:15 WBC 15.2 H RBC 2.86 L Hgb 8.2 L D Hct 24.6 L MCV 86.0 MCH 28.6 MCHC 33.2 RDW 17.8 H Plt Count 138 MPV 8.4 INR PTT (Actin FS) Puncture Site ABG pH ABG pCO2 at Pt Temp ABG pO2 at Pt Temp ABG HCO3 ABG O2 Sat (Measured) ABG O2 Content ABG Base Excess Cody Test O2 Delivery Device Oxygen Flow Rate PEEP Sodium Potassium Chloride Carbon Dioxide Anion Gap BUN Creatinine Random Glucose Lactic Acid Calcium 9.9 Magnesium Prot Electrophoresis Serum Total Protein 7.5 Albumin 3.5 Globulin 4.0 H Albumin/Globulin Ratio 0.9 Agtqt-7-Igoyzvkrd 0.4 Azdlt-0-Xygfgchzo 0.6 Beta Globulins 1.4 H Gamma Globulins 1.7 PTH Intact 29 PTH Intact Intraop 0 m JUAN PABLO M-Garfield Not observed 11/19/16 11/19/16 11/19/16 05:15 05:15 05:15 WBC RBC Hgb Hct MCV MCH MCHC RDW Plt Count MPV INR 1.81 H PTT (Actin FS) 85.7 H Puncture Site ABG pH ABG pCO2 at Pt Temp ABG pO2 at Pt Temp ABG HCO3 ABG O2 Sat (Measured) ABG O2 Content ABG Base Excess Cody Test O2 Delivery Device Oxygen Flow Rate PEEP Sodium 129 L Potassium 5.0 Chloride 94 L Carbon Dioxide 23 Anion Gap 12 BUN 60 H Creatinine 2.3 H D Random Glucose 144 H Lactic Acid Calcium 9.2 Magnesium 1.9 Prot Electrophoresis Serum Total Protein Albumin Globulin Albumin/Globulin Ratio Eryyh-0-Tfpecnocg Ensmx-4-Ovesdnzlm Beta Globulins Gamma Globulins PTH Intact PTH Intact Intraop 0 m JUAN PABLO M-Garfield 11/19/16 11/19/16 07:15 08:00 WBC RBC Hgb Hct MCV MCH MCHC RDW Plt Count MPV INR PTT (Actin FS) Puncture Site Left brachial ABG pH 7.42 ABG pCO2 at Pt Temp 34.3 L ABG pO2 at Pt Temp 189.0 H* ABG HCO3 21.9 L ABG O2 Sat (Measured) 100.0 H* ABG O2 Content 11.6 L ABG Base Excess -1.7 Cody Test Positive O2 Delivery Device Non rebreather Oxygen Flow Rate 100% PEEP 0.0 Sodium Potassium Chloride Carbon Dioxide Anion Gap BUN Creatinine Random Glucose Lactic Acid 1.7 Calcium Magnesium Prot Electrophoresis Serum Total Protein Albumin Globulin Albumin/Globulin Ratio Boshn-2-Glybndezi Rfhan-3-Oyoyolkkp Beta Globulins Gamma Globulins PTH Intact PTH Intact Intraop 0 m JUAN PABLO M-Garfield Assessment/Plan Problem List - Problems (1) Anemia Code(s): D64.9 - ANEMIA, UNSPECIFIED Qualifiers: Anemia type: unspecified type Qualified Code(s): D64.9 - Anemia, unspecified (2) Cellulitis Code(s): L03.90 - CELLULITIS, UNSPECIFIED (3) Heart valve replaced Code(s): Z95.2 - PRESENCE OF PROSTHETIC HEART VALVE (4) Pneumonia Code(s): J18.9 - PNEUMONIA, UNSPECIFIED ORGANISM (5) Supratherapeutic INR Code(s): R79.1 - ABNORMAL COAGULATION PROFILE (6) Atrial fibrillation Code(s): I48.91 - UNSPECIFIED ATRIAL FIBRILLATION Qualifiers: Atrial fibrillation type: persistent Qualified Code(s): I48.1 - Persistent atrial fibrillation (7) CHF (congestive heart failure) Code(s): I50.9 - HEART FAILURE, UNSPECIFIED Qualifiers: Congestive heart failure type: unspecified congestive heart failure type Congestive heart failure chronicity: unspecified congestive heart failure chronicity Qualified Code(s): I50.9 - Heart failure, unspecified (8) Bacteremia Code(s): R78.81 - BACTEREMIA Strep Viridans bacteremia -> Endocarditis Assessment/Plan NIPPV to decrease WOB in CHF (Do not suspect active PNA) Lasix BID ABX per ID BD TX IV Heparin Dobutamine drip at 5mg/kg/min Amiodarone [facility] For transfer to [place] for surgical intervention Dr Marquez CCTime 35" Problem List - Problems (1) Anemia Code(s): D64.9 - ANEMIA, UNSPECIFIED Qualifiers: Anemia type: unspecified type Qualified Code(s): D64.9 - Anemia, unspecified (2) Cellulitis Code(s): L03.90 - CELLULITIS, UNSPECIFIED (3) Heart valve replaced Code(s): Z95.2 - PRESENCE OF PROSTHETIC HEART VALVE (4) Pneumonia Code(s): J18.9 - PNEUMONIA, UNSPECIFIED ORGANISM (5) Supratherapeutic INR Code(s): R79.1 - ABNORMAL COAGULATION PROFILE (6) Atrial fibrillation Code(s): I48.91 - UNSPECIFIED ATRIAL FIBRILLATION Qualifiers: Atrial fibrillation type: persistent Qualified Code(s): I48.1 - Persistent atrial fibrillation (7) CHF (congestive heart failure) Code(s): I50.9 - HEART FAILURE, UNSPECIFIED Qualifiers: Congestive heart failure type: unspecified congestive heart failure type Congestive heart failure chronicity: unspecified congestive heart failure chronicity Qualified Code(s): I50.9 - Heart failure, unspecified (8) Bacteremia Code(s): R78.81 - BACTEREMIA
--- NOTE | 2016-11-19 11:41 | PN ---
Physical Exam: SUBJECTIVE: A brief summary of the patient's hospital stay follows: 61 yo M w/ PMH A. fib, S/P ablation x2, mechanical valve replacement (aortic, mitral), history of endocarditis, CHF, COPD due to smoking. Admitted via the ER due to progressive SOB and cough x 1 week. Minimal snoring and no significant history consistent with OSAS. No travel history or sick contacts. No hemoptysis or night sweats. During hospital admission, patient's blood culture was positive in the setting of mechanical valves replacement. VIDA showed moderate size echodensity near base of mitral valve leaflet, with small component that is mobile--suspect vegetation. There was also at least 1 smaller mobile echodensity adherent to the leaflet more centrally, consistent with small vegetation. There was severe mitral regurgitation, with an eccentric (posteriorly directed jet) wrapping all the way around the left atrium, and probably a second jet that is moderate to severe in its own right. AV was not well seen due to mechanical shadowing but appears to be mechanical. No AI seen. Limited views of the TV show no vegetation and mild TR. LV and RV could not be seen well to evaluate size/ function due to extensive shadowing form mechanical MV. Patient was transferred to the ICU for further monitoring. Patient was transferred to the unit on dobutamine gtt and heparin gtt pending transfer to [place] for valve replacement. Patient is currently saturating well on bipap. Patient is currently on Ceftriaxone 1 gram q 12H and Gentamycin 40mg IVPB q12H. Patient has received 2 doses of lasix since ICU transfer with minimal urine output. CXR shows progressive congestive and infiltrative changes with pleural fluid visible. OBJECTIVE: Vital Signs Temperature 97.6 F 11/19/16 11:00 Pulse Rate 100 H 11/19/16 11:00 Respiratory Rate 24 11/19/16 11:00 Blood Pressure 96/79 11/19/16 11:00 O2 Sat by Pulse Oximetry (%) 100 11/19/16 11:23 GENERAL: The patient is awake, alert, and fully oriented, in no acute distress on bipap. HEAD: Normal with no signs of trauma. EYES: PERRL, extraocular movements intact, sclera anicteric, conjunctiva clear. No ptosis. ENT: Ears normal, nares patent, oropharynx clear without exudates, moist mucous membranes. NECK: Trachea midline, full range of motion, supple. LUNGS: Breath sounds equal, clear to auscultation bilaterally, no wheezes, no crackles, no accessory muscle use. HEART: Regular rate and rhythm, S1, S2 without murmur, rub or gallop. ABDOMEN: Soft, nontender, nondistended, normoactive bowel sounds, no guarding, no rebound, no hepatosplenomegaly, no masses. EXTREMITIES: 2+ pulses, warm, well-perfused, no edema. NEUROLOGICAL: Cranial nerves II through X grossly intact. Normal speech, gait not observed. PSYCH: Normal mood, normal affect. SKIN: Warm, dry, normal turgor, no rashes or lesions noted Laboratory Results - last 24 hr 11/15/16 11/17/16 11/19/16 07:25 13:00 05:15 WBC 15.2 H RBC 2.86 L Hgb 8.2 L D Hct 24.6 L MCV 86.0 MCH 28.6 MCHC 33.2 RDW 17.8 H Plt Count 138 MPV 8.4 INR PTT (Actin FS) Puncture Site ABG pH ABG pCO2 at Pt Temp ABG pO2 at Pt Temp ABG HCO3 ABG O2 Sat (Measured) ABG O2 Content ABG Base Excess Cody Test O2 Delivery Device Oxygen Flow Rate PEEP Sodium Potassium Chloride Carbon Dioxide Anion Gap BUN Creatinine Random Glucose Lactic Acid Calcium 9.9 Magnesium Prot Electrophoresis Serum Total Protein 7.5 Albumin 3.5 Globulin 4.0 H Albumin/Globulin Ratio 0.9 Iothm-0-Xwllfhdos 0.4 Pvjqx-5-Mfvhkxhay 0.6 Beta Globulins 1.4 H Gamma Globulins 1.7 PTH Intact 29 PTH Intact Intraop 0 m JUAN PABLO M-Garfield Not observed 11/19/16 11/19/16 11/19/16 05:15 05:15 05:15 WBC RBC Hgb Hct MCV MCH MCHC RDW Plt Count MPV INR 1.81 H PTT (Actin FS) 85.7 H Puncture Site ABG pH ABG pCO2 at Pt Temp ABG pO2 at Pt Temp ABG HCO3 ABG O2 Sat (Measured) ABG O2 Content ABG Base Excess Cody Test O2 Delivery Device Oxygen Flow Rate PEEP Sodium 129 L Potassium 5.0 Chloride 94 L Carbon Dioxide 23 Anion Gap 12 BUN 60 H Creatinine 2.3 H D Random Glucose 144 H Lactic Acid Calcium 9.2 Magnesium 1.9 Prot Electrophoresis Serum Total Protein Albumin Globulin Albumin/Globulin Ratio Hjbkt-3-Hljktugqi Encyf-4-Tjljzrwwb Beta Globulins Gamma Globulins PTH Intact PTH Intact Intraop 0 m JUAN PABLO M-Garfield 11/19/16 11/19/16 07:15 08:00 WBC RBC Hgb Hct MCV MCH MCHC RDW Plt Count MPV INR PTT (Actin FS) Puncture Site Left brachial ABG pH 7.42 ABG pCO2 at Pt Temp 34.3 L ABG pO2 at Pt Temp 189.0 H* ABG HCO3 21.9 L ABG O2 Sat (Measured) 100.0 H* ABG O2 Content 11.6 L ABG Base Excess -1.7 Cody Test Positive O2 Delivery Device Non rebreather Oxygen Flow Rate 100% PEEP 0.0 Sodium Potassium Chloride Carbon Dioxide Anion Gap BUN Creatinine Random Glucose Lactic Acid 1.7 Calcium Magnesium Prot Electrophoresis Serum Total Protein Albumin Globulin Albumin/Globulin Ratio Ctqwy-2-Tlynalvgl Almbg-2-Lualieexu Beta Globulins Gamma Globulins PTH Intact PTH Intact Intraop 0 m JUAN PABLO M-Garfield Active Medications Generic Name Dose Route Start Last Admin Trade Name Freq PRN Reason Stop Dose Admin Acetaminophen 650 mg 11/13/16 12:29 11/19/16 02:26 Tylenol - PO 650 mg Q4H PRN Administration FEVER OR PAIN Albumin Human 12.5 gm 11/17/16 18:00 11/19/16 07:15 Albumin Human 25% IVPB 11/20/16 06:01 12.5 gm Q12H SID Administration Albuterol/Ipratropium 1 amp 11/18/16 14:01 11/19/16 09:50 Duoneb - NEB 1 amp Q4HPO SID Administration Amiodarone HCl 200 mg 11/13/16 10:00 11/19/16 10:43 Cordarone - PO 200 mg DAILY SID Administration Furosemide 80 mg 11/18/16 22:00 11/19/16 07:16 Lasix Injection - IVPUSH 80 mg TID SID Administration Heparin Sodium (Porcine) 1,000 unit 11/14/16 11:57 11/17/16 10:42 Heparin - IVPUSH 1,000 unit PRN PRN Administration Heparin Heparin Sodium (Porcine) 5,000 unit 11/14/16 11:57 11/15/16 09:46 Heparin - IVPUSH 5,000 unit PRN PRN Administration Heparin Heparin Sodium/Dextrose 500 mls @ 20 mls/hr 11/14/16 12:00 11/19/16 09:30 Heparin Infusion - IVPB 1,700 units/hr TITR SID Titration Protocol 1,000 UNITS/HR Dobutamine HCl/Dextrose 250 mls @ 26.416 mls/hr 11/18/16 19:18 11/19/16 10:44 Dobutamine 250 Mg/D5w - IV 26.416 mls/hr TITR SID Administration Protocol 5 MCG/KG/MIN Gentamicin Sulfate 40 mg/ 101 mls @ 202 mls/hr 11/19/16 10:00 11/19/16 10:58 Dextrose IVPB 202 mls/hr BID SID Administration Ceftriaxone Sodium 50 mls @ 100 mls/hr 11/19/16 10:00 11/19/16 10:44 Rocephin 1gm Ivpb (Pre-Docked) IVPB 100 mls/hr BID SID Administration Potassium Chloride 20 meq 11/13/16 10:00 11/19/16 10:44 K-Dur - PO Not Given BID SID Silver Sulfadiazine 1 applic 11/18/16 18:15 11/19/16 10:47 Silvadene - TP 1 applic DAILY SID Administration Spironolactone 50 mg 11/13/16 10:00 11/19/16 10:43 Aldactone - PO 50 mg DAILY SID Administration Zolpidem Tartrate 10 mg 11/16/16 23:00 11/18/16 22:13 Ambien - PO 10 mg HS PRN Administration ASSESSMENT/PLAN: 61 yo M w/ PMH A. fib, S/P ablation x2, mechanical valve replacement (aortic, mitral), history of endocarditis, CHF, COPD due to smoking. Admitted via the ER due to progressive SOB and cough x 1 week. -Continue noninvasive ventilation to support work of breathing and maintain saturation >95% -Continue antibiotics to treat endocarditis -patient is pending transfer to [facility] for more advanced cardiac care and possible surgical intervention. Problem List - Problems (1) Heart valve replaced Code(s): Z95.2 - PRESENCE OF PROSTHETIC HEART VALVE (2) Prosthetic valve endocarditis Code(s): T82.6XXA - INFECT/INFLM REACTION DUE TO CARDIAC VALVE PROSTHESIS, INIT (3) Streptococcus viridans infection Code(s): A49.1 - STREPTOCOCCAL INFECTION, UNSPECIFIED SITE (4) Supratherapeutic INR Code(s): R79.1 - ABNORMAL COAGULATION PROFILE (5) Atrial fibrillation Code(s): I48.91 - UNSPECIFIED ATRIAL FIBRILLATION Qualifiers: Atrial fibrillation type: persistent Qualified Code(s): I48.1 - Persistent atrial fibrillation (6) CHF (congestive heart failure) Code(s): I50.9 - HEART FAILURE, UNSPECIFIED Qualifiers: Congestive heart failure type: unspecified congestive heart failure type Congestive heart failure chronicity: unspecified congestive heart failure chronicity Qualified Code(s): I50.9 - Heart failure, unspecified Visit type - Emergency Visit Emergency Visit: Yes ED Registration Date: 11/12/16 Care time: The patient presented to the Emergency Department on the above date and was hospitalized for further evaluation of their emergent condition. - New Patient This patient is new to me today: Yes Date on this admission: 11/19/16 - Critical Care Critical Care patient: Yes Total Critical Care Time (in minutes): 40 Critical Care Statement: The care of this patient involved high complexity decision making to prevent further life threatening deterioration of the patient 's condition and/or to evalute & treat vital organ system(s) failure or risk of failure.
--- NOTE | 2016-11-19 12:20 | PN ---
Progress Note, Physician - Current Medication List Current Medications: Active Medications Acetaminophen (Tylenol -) 650 mg PO Q4H PRN PRN Reason: FEVER OR PAIN Last Admin: 11/19/16 02:26 Dose: 650 mg Albumin Human (Albumin Human 25%) 12.5 gm IVPB Q12H SID Stop: 11/20/16 06:01 Last Admin: 11/19/16 07:15 Dose: 12.5 gm Albuterol/Ipratropium (Duoneb -) 1 amp NEB Q4HPO SID Last Admin: 11/19/16 09:50 Dose: 1 amp Amiodarone HCl (Cordarone -) 200 mg PO DAILY [facility] Last Admin: 11/19/16 10:43 Dose: 200 mg Furosemide (Lasix Injection -) 80 mg IVPUSH TID SID Last Admin: 11/19/16 07:16 Dose: 80 mg Heparin Sodium (Porcine) (Heparin -) 1,000 unit IVPUSH PRN PRN PRN Reason: Heparin Last Admin: 11/17/16 10:42 Dose: 1,000 unit Heparin Sodium (Porcine) (Heparin -) 5,000 unit IVPUSH PRN PRN PRN Reason: Heparin Last Admin: 11/15/16 09:46 Dose: 5,000 unit Heparin Sodium/Dextrose (Heparin Infusion -) 500 mls @ 20 mls/hr IVPB TITR SID ; 1,000 UNITS/HR PRN Reason: Protocol Last Titration: 11/19/16 09:30 Dose: 1,700 units/hr Dobutamine HCl/Dextrose (Dobutamine 250 Mg/D5w -) 250 mls @ 26.416 mls/hr IV TITR SID; 5 MCG/KG/MIN PRN Reason: Protocol Last Admin: 11/19/16 10:44 Dose: 26.416 mls/hr Gentamicin Sulfate 40 mg/ (Dextrose) 101 mls @ 202 mls/hr IVPB BID SID Last Admin: 11/19/16 10:58 Dose: 202 mls/hr Ceftriaxone Sodium (Rocephin 1gm Ivpb (Pre-Docked)) 50 mls @ 100 mls/hr IVPB BID [facility] Last Admin: 11/19/16 10:44 Dose: 100 mls/hr Potassium Chloride (K-Dur -) 20 meq PO BID SID Last Admin: 11/19/16 10:44 Dose: Not Given Silver Sulfadiazine (Silvadene -) 1 applic TP DAILY [facility] Last Admin: 11/19/16 10:47 Dose: 1 applic Spironolactone (Aldactone -) 50 mg PO DAILY [facility] Last Admin: 11/19/16 10:43 Dose: 50 mg Zolpidem Tartrate (Ambien -) 10 mg PO HS PRN Last Admin: 11/18/16 22:13 Dose: 10 mg - Objective Vital Signs: Vital Signs Temperature 97.6 F 11/19/16 11:00 Pulse Rate 100 H 11/19/16 11:00 Respiratory Rate 24 11/19/16 11:00 Blood Pressure 96/79 11/19/16 11:00 O2 Sat by Pulse Oximetry (%) 100 11/19/16 11:23 Cardiovascular: Yes: Murmur, S1, S2 Respiratory: Yes: Diminished, On Venti-Mask, Rales Gastrointestinal: Yes: Normal Bowel Sounds, Soft Labs: CBC, BMP 11/19/16 05:15 11/19/16 05:15 INR, PTT INR 1.81 (0.82-1.09) H 11/19/16 05:15 Problem List - Problems (1) CHF (congestive heart failure) Assessment/Plan: IV LASIX--INCREASE TO [address] OF CHEST NOTED--F/U CXR TODAY ECHO NOTED-VIDA TODAY ON ALDACTONE Code(s): I50.9 - HEART FAILURE, UNSPECIFIED Qualifiers: Congestive heart failure type: unspecified congestive heart failure type Congestive heart failure chronicity: unspecified congestive heart failure chronicity Qualified Code(s): I50.9 - Heart failure, unspecified (2) Supratherapeutic INR Assessment/Plan: HOLD COUMADIN--OFF--RESUME 5 MG ON HEPARIN Code(s): R79.1 - ABNORMAL COAGULATION PROFILE (3) Atrial fibrillation Assessment/Plan: OFF COUMADIN--ON HEPARIN--RESUME COUMADIN OFF TELE Code(s): I48.91 - UNSPECIFIED ATRIAL FIBRILLATION Qualifiers: Atrial fibrillation type: persistent Qualified Code(s): I48.1 - Persistent atrial fibrillation (4) Anemia Assessment/Plan: W/U ORDERED--FE/TIBC/FERRITIN/B12/OCCULT BLOOD Laboratory Tests 11/14/16 11/16/16 07:00 05:35 Hgb 10.2 L 10.3 L Code(s): D64.9 - ANEMIA, UNSPECIFIED Qualifiers: Anemia type: unspecified type Qualified Code(s): D64.9 - Anemia, unspecified (5) Renal insufficiency Assessment/Plan: MONITOR ON DIURETICS Laboratory Tests 11/14/16 11/15/16 07:00 07:25 Creatinine 1.7 H 1.6 H Code(s): N28.9 - DISORDER OF KIDNEY AND URETER, UNSPECIFIED (6) Hypokalemia Assessment/Plan: REPLACE AND MONITOR Laboratory Tests 11/13/16 11/14/16 08:05 07:00 Potassium 3.2 L 4.0 D Code(s): E87.6 - HYPOKALEMIA (7) Heart valve replaced Assessment/Plan: ECHO-- NOTED--FOR VIDA CARDIO ON BOARD Code(s): Z95.2 - PRESENCE OF PROSTHETIC HEART VALVE (8) Cellulitis Code(s): L03.90 - CELLULITIS, UNSPECIFIED (9) Pneumonia Code(s): J18.9 - PNEUMONIA, UNSPECIFIED ORGANISM (10) Bacteremia Assessment/Plan: R/O VALVE INVOLVEMENT---ECHO CARDIO--VIDA IV ABX PER ID Microbiology 11/15/16 07:30 Blood - Peripheral Venous Blood Culture - Preliminary NO GROWTH OBTAINED AFTER 48 HOURS, INCUBATION TO CONTINUE FOR 3 DAYS. 11/15/16 07:15 Blood - Peripheral Venous Blood Culture - Preliminary NO GROWTH OBTAINED AFTER 48 HOURS, INCUBATION TO CONTINUE FOR 3 DAYS. 11/12/16 23:49 Blood - Peripheral Venous Blood Culture - Final Viridans Streptococcus Group 11/12/16 23:49 Blood - Peripheral Venous Blood Culture - Final Viridans Streptococcus Group 11/14/16 15:00 Urine For Antigen Detection Legionella Antigen - Final 11/14/16 15:00 Urine For Antigen Detection Streptococcus pneumoniae Antigen (M - Final 11/12/16 20:29 Urine - Urine Clean Catch Urine Culture - Final NO GROWTH OBTAINED Code(s): R78.81 - BACTEREMIA (11) Prosthetic valve endocarditis Assessment/Plan: IV ABX FOR TRANSFER TO [facility] Code(s): T82.6XXA - INFECT/INFLM REACTION DUE TO CARDIAC VALVE PROSTHESIS, INIT
[2016-11-19 14:38] VITALS: BP 99/65; PULSE 100
== END 2016-11-19 13:15 | disposition short-term general hospital (02) | DRG 291 ==
LOC: JER 15:54 → JERBED 22:55 → UNDOADMIN 23:08 → J4W 11-13 02:21 → J5S 11-16 17:00 → JICU 11-18 16:24
PROVIDERS: ADMIT Family Medicine; ATTEND Family Medicine
DX: I11.0 Hypertensive heart disease with heart failure (principal); J18.9 Pneumonia, unspecified organism; A41.9 Sepsis, unspecified organism; J96.00 Acute respiratory failure, unspecified whether with hypoxia or hypercapnia; R57.0 Cardiogenic shock; I48.1 Persistent atrial fibrillation; N17.9 Acute kidney failure, unspecified; L03.115 Cellulitis of right lower limb; E87.1 Hypo-osmolality and hyponatremia; K62.5 Hemorrhage of anus and rectum; I50.41 Acute combined systolic (congestive) and diastolic (congestive) heart failure; I34.8 Other nonrheumatic mitral valve disorders; I34.0 Nonrheumatic mitral (valve) insufficiency; R79.1 Abnormal coagulation profile; D64.9 Anemia, unspecified; E87.6 Hypokalemia; Z95.2 Presence of prosthetic heart valve; E78.5 Hyperlipidemia, unspecified; F41.9 Anxiety disorder, unspecified; J44.9 Chronic obstructive pulmonary disease, unspecified; E83.52 Hypercalcemia; Z87.891 Personal history of nicotine dependence
CPT/HCPCS: 36415; 36600; 71010-TC; 71020-TC; 71250-TC; 76775-TC; 76856-TC; 80048; 80053; 80061; 81003; 82272; 82310; 82436; 82533; 82550; 82607; 82728; 82803; 82930; 83036; 83540; 83550; 83605; 83721; 83735; 83880; 83930; 83935; 83970; 84100; 84133; 84155; 84165; 84300; 84443; 84484; 85025; 85027; 85610; 85651; 85730; 86140; 86618; 87040; 87086; 87186; 87899; 93005; 93010; 93306-TC; 93312; 93325; 94640; 94660; 94760; 99285-25; J1250; J1644; P9047